=== PATIENT | male | born 1945 | race Caucasian/White ===

== ENCOUNTER 2017-09-20 19:25 | Emergency (ER) | payer OTHER ==
--- OUTSIDE RECORDS SUMMARY | 2017-09-20 19:27 | XMS REPORT ---
:1945 Author Organization [employer] Care Team Providers Name Role Phone Luis Mccormick Provider Role Unavailable Allergies, Adverse Reactions, Alerts Substance Reaction Event Type Cortisone Info Not Available Drug Allergy Naproxen Info Not Available Drug Allergy Problems Problem Type Condition Code Onset Dates Condition Status Problem Contusion of left knee, subsequent S80.02XD Active encounter Problem Prepatellar bursitis of left knee M70.42 Active Problem Pain, joint, knee, left M25.562 Active Assessment Contusion of left knee, subsequent S80.02XD Active encounter Assessment Prepatellar bursitis of left knee M70.42 Active Assessment Pain, joint, knee, left M25.562 Active Medications Medication Code System Code Instructions Start End Date Status Dosage Date Oxcarbazepine NDC 0 Active not defined atorvastatin NDC 13819608907 20mg September 04, Active 1 tablet by 2018 mouth at bedtime Results No Known Results Summary Purpose [employer] Submission
[2017-09-20 21:01] LABS: Absolute Lymphocytes (CBC) 0.8 K/uL (0.7-4.9); Absolute Monocytes 0.8 K/uL (0.1-1.3); Absolute Neutrophil 6.2 K/uL (1.8-8.0); Basophils % 0.5 % (0-1.3); Eosinophils % 3.3 % (0-4.4); Hematocrit 45.6 % (39.6-49.0); Lymphocytes % 9.7 % (15.3-44.8); MCH 30.9 pg (27.0-35.0); MCV 89.8 fL (80-100); MPV 10.4 fL (7.6-11.3); Monocytes % 9.8 % (3.3-12.3); RBC Red Blood Cell Count 5.08 M/uL (4.33-5.43)
[2017-09-20 21:09] LABS: Protime INR 1.06
[2017-09-20 21:17] LABS: Albumin 3.9 g/dL (3.4-5.0); Bilirubin Direct 0.1 mg/dL (0-0.2); Bilirubin Total 0.5 mg/dL (0.2-1.0); CKMB Creatine Kinase MB 1.8 ng/mL (0.3-3.6); Magnesium 2.1 mg/dL (1.8-2.4); Potassium 4.2 mmol/L (3.5-5.1); Protein, Total 7.4 g/dL (6.4-8.2)
[2017-09-20] MEDS ORDERED: ALBUTEROL 2.5 MG/3 ML NEB SOL ONE (21:20)
[2017-09-20] MEDS ORDERED: IPRATROPIUM BROM 0.5MG/2.5ML ONE (21:20)
[2017-09-20] MEDS ORDERED: HYDROCODONE/CHLORPHEN 5 ML/OSYR ONE (21:20)
[2017-09-20] MEDS ORDERED: LIDOCAINE VISCOUS 2% SOLN 15 ML UDC ONE (22:14)
[2017-09-20] MEDS ORDERED: MAGNE/ALUM HYDROXD 30 ML UCUP ONE (22:14)
--- NOTE | 2017-09-20 23:38 | EDPHYS ---
Physician Documentation [facility] Name: Jayro Mcelroy Age: 72 yrs Sex: Male : 1945 Arrival Date: 09/20/2017 Time: 19:28 Bed 23 Private MD: Evelio Murcia V ED Physician Dharmesh Daniel HPI: 09/20 21:00 This 72 yrs old Male presents to ER via Ambulatory with complaints of cp Difficulty breathing due to cough. 21:00 The patient has shortness of breath at rest. cp 21:00 Onset: The symptoms/episode began/occurred last week. Associated signs and symptoms: cp Pertinent positives: chest pain, productive cough, vomiting, Pertinent negatives: diaphoresis, fever, hemoptysis. Severity of symptoms: in the emergency department the symptoms are unchanged despite home interventions. Historical: - Allergies: 19:51 Naproxen; aj1 - Home Meds: 19:51 atorvastatin 40 mg Oral tab 1 tab once daily [Active]; Bupropion Oral [Active]; aj1 clopidogrel 75 mg Oral tab 1 tab once daily [Active]; oxcarbazepine 600 mg Oral tab 1 tab TID [Active]; - PMHx: 19:51 Diabetes - NIDDM; Hyperlipidemia; Hypertension; aj1 - Immunization history:: Flu vaccine is not up to date. - Social history:: Smoking status: Patient/guardian denies using tobacco. - Ebola Screening: : No symptoms or risks identified at this time. ROS: 21:05 Constitutional: Negative for body aches, chills, fever, poor PO intake. cp 21:05 Eyes: Negative for injury, pain, redness, and discharge. cp 21:05 ENT: Negative for drainage from ear(s), ear pain, sore throat, difficulty swallowing, difficulty handling secretions. 21:05 Cardiovascular: Positive for chest pain, with cough, Negative for edema. 21:05 Respiratory: Positive for cough, "sounds productive", shortness of breath, Negative for hemoptysis. 21:05 Abdomen/GI: Positive for abdominal pain, vomiting, Negative for diarrhea, constipation, black/tarry stool, rectal bleeding. 21:05 Back: Negative for radiated pain. 21:05 : Negative for urinary symptoms. 21:05 Skin: Negative for cellulitis, rash. 21:05 Neuro: Positive for headache, Negative for altered mental status, syncope, near syncope, weakness. 21:05 All other systems are negative. Exam: 21:10 Constitutional: The patient appears in no acute distress, alert, awake, cp non-diaphoretic, non-toxic, well developed, well nourished. 21:10 Head/Face: Normocephalic, atraumatic. cp 21:10 Eyes: Periorbital structures: appear normal, Conjunctiva: normal, no exudate, no injection, Sclera: no appreciated abnormality, Lids and lashes: appear normal, bilaterally. 21:10 ENT: External ear(s): are unremarkable, Ear canal(s): are normal, clear, TM's: bulging, is not appreciated, bilaterally, erythema, is not appreciated, bilaterally, Nose: is normal, Mouth: Lips: moist, Oral mucosa: pink and intact, moist, Posterior pharynx: is normal, airway is patent, no erythema, no exudate. 21:10 Neck: ROM/movement: is normal, is supple, without pain, no range of motions limitations, no meningismus, no nuchal rigidity. 21:10 Chest/axilla: Inspection: normal, Palpation: is normal, no crepitus, no tenderness. 21:10 Cardiovascular: Rate: normal, Rhythm: regular, Pulses: Pulses are 2+ in right radial artery and left radial artery. Edema: is not appreciated, JVD: is not appreciated. 21:10 Respiratory: the patient does not display signs of respiratory distress, Respirations: labored breathing, is not present, intercostal retractions, are absent, shallow respirations, are not present, Breath sounds: bronchial sounds, that are mild, are heard diffusely, stridor, is not appreciated, wheezing: is not appreciated. 21:10 Abdomen/GI: Inspection: abdomen appears normal, Bowel sounds: active, all quadrants, Palpation: abdomen is soft and non-tender, in all quadrants. 21:10 Skin: cellulitis, is not appreciated, no rash present. 21:10 Neuro: Orientation: to person, place \\T\\ time. Mentation: lucid, able to follow commands, Cerebellar function: is grossly normal, Motor: moves all fours, strength is normal, Sensation: no obvious gross deficits. Vital Signs: 19:51 BP 195 / 107; Pulse 92; Resp 26; Temp 99.4(O); Pulse Ox 96% on R/A; Weight 145.15 kg aj1 (R); Height 6 ft. 4 in. (193.04 cm) (R); Pain 6/10; 21:30 BP 166 / 91; Pulse 91; Resp 20; Pulse Ox 98% on R/A; kr2 22:16 BP 184 / 98; Pulse 96; Resp 19; Pulse Ox 95% on R/A; kr2 23:57 BP 176 / 80; Pulse 94; Resp 17; Pulse Ox 99% on R/A; kr2 19:51 Body Mass Index 38.95 (145.15 kg, 193.04 cm) aj1 MDM: 20:31 Patient medically screened. cp 21:00 Differential diagnosis: Bronchitis CHF exacerbation, Chronic Obstructive Pulmonary cp Disease Myocardial Infarction pneumonia, Pneumothorax pulmonary edema, Pulmonary Embolism reactive airway disease, Sepsis Unstable Angina. 23:35 Data reviewed: vital signs, nurses notes, lab test result(s), EKG, radiologic studies, cp plain films. 23:35 Test interpretation: by ED physician or midlevel provider: ECG, plain radiologic cp studies. Counseling: I had a detailed discussion with the patient and/or guardian regarding: the historical points, exam findings, and any diagnostic results supporting the discharge/admit diagnosis, the presence of at least one elevated blood pressure reading (>120/80) during this emergency department visit, lab results, radiology results, the need for outpatient follow up, a family practitioner, to return to the emergency department if symptoms worsen or persist or if there are any questions or concerns that arise at home. Response to treatment: the patient's symptoms have markedly improved after treatment, and as a result, I will discharge patient. 09/20 20:44 Order name: Basic Metabolic Panel; Complete Time: 21:43 cp 09/20 20:44 Order name: CBC with Diff; Complete Time: :43 cp 09/20 21:45 Interpretation: Normal except: PLT 132; PADILLA% 76.7; LYM% 9.7. cp 09/20 20:44 Order name: Ckmb; Complete Time: 21:43 cp 09/20 20:44 Order name: CPK; Complete Time: 21:43 cp 09/20 20:44 Order name: LFT's; Complete Time: 21:43 cp 09/20 20:44 Order name: Magnesium; Complete Time: 21:43 cp 08/12 20:44 Order name: NT PRO-BNP; Complete Time: 21:43 cp 08/12 20:44 Order name: PT-INR; Complete Time: 21:43 cp 08/12 20:44 Order name: Ptt, Activated; Complete Time: 21:43 cp 08/12 20:44 Order name: Troponin (emerg Dept Use Only); Complete Time: 21:43 cp 08/12 21:44 Interpretation: Within normal limits: TROPED < 0.02. cp 08/12 20:54 Order name: XRAY Chest Pa And Lat (2 Views) cp 08/12 20:44 Order name: EKG; Complete Time: 20:45 cp 08/12 20:44 Order name: Cardiac monitoring; Complete Time: 20:47 cp 08/12 20:44 Order name: EKG - Nurse/Tech; Complete Time: 20:47 cp 08/12 20:44 Order name: IV Saline Lock; Complete Time: 20:47 cp 08/12 20:44 Order name: Labs collected and sent; Complete Time: 20:47 cp 08/12 20:44 Order name: O2 Per Protocol; Complete Time: 20:47 cp 08/12 20:44 Order name: O2 Sat Monitoring; Complete Time: 20:47 cp 08/12 20:44 Order name: Urine Dipstick-Ancillary (obtain specimen); Complete Time: 21:37 cp Administered Medications: 21:17 Drug: Albuterol - atroVENT (3:1) (2.5 mg - 0.5 mg) 3 ml Route: Nebulizer; kr2 22:21 Follow up: Response: No adverse reaction kr2 21:17 Drug: Tussionex Pennkinetic ER 5 ml Route: PO; kr2 22:21 Follow up: Response: No adverse reaction kr2 22:14 Drug: GI Cocktail without - (Maalox Suspension 30 ml, Lidocaine Liquid 2 % 15 kr2 ml) Route: PO; 23:56 Follow up: Response: No adverse reaction; Pain is decreased kr2 Disposition: 09/20/17 23:37 Discharged to Home. Impression: Acute upper respiratory infection, unspecified. - Condition is Stable. - Discharge Instructions: Upper Respiratory Infection, Adult. - Prescriptions for prednisone 50 mg Oral tablet - take 1 tablet by ORAL route once daily for 5 days; 5 tablet. Zithromax Z- Flakito 250 mg Oral Tablet - take 1 tablet by ORAL route as directed for 5 days Day 1 - take two (2) tablets one time. Day 2, 3, 4 , 5 take one (1) tablet once daily.; 6 tablet. Albuterol Sulfate 90 mcg/actuation - inhale 1-2 puff by INHALATION route every 4-6 hours; 1 Inhaler. Guaifenesin AC 10- 100 mg/5 mL Oral Liquid - take 10 milliliter by ORAL route every 4 hours As needed; 240 milliliter. - Medication Reconciliation Form, Thank You Letter, Antibiotic Education, Prescription Opioid Use form. - Follow up: Private Physician; When: 2 - 3 days; Reason: Recheck today's complaints. - Problem is new. - Symptoms have improved. Signatures: Dispatcher [employer] EDTania De Leon RN RN aj1 Clovis Gomez PA PA cp Reaves, Karey, RN RN kr2 Corrections: (The following items were deleted from the chart) 23:59 23:37 09/20/2017 23:37 Discharged to Home. Impression: Acute upper respiratory kr2 infection, unspecified. Condition is Stable. Forms are Medication Reconciliation Form, Thank You Letter, Antibiotic Education, Prescription Opioid Use. Follow up: Private Physician; When: 2 - 3 days; Reason: Recheck today's complaints. Problem is new. Symptoms have improved. cp
--- NOTE | 2017-09-20 23:38 | ER ---
Nurse's Notes [facility] Name: Jayro Mcelroy Age: 72 yrs Sex: Male : 1945 Arrival Date: 09/20/2017 Time: 19:28 Bed 23 Private MD: Evelio Murcia V Diagnosis: Acute upper respiratory infection, unspecified Presentation: 09/20 19:46 Presenting complaint: Patient states: Cough and fever since last , states he is aj1 having coughing fits and that its making his chest and abdomen sore and giving him a headache. Reports shortness of breath during and after his coughing fits. Reports that he has vomited once today. Transition of care: patient was not received from another setting of care. Onset of symptoms was September 16, 2017. Risk Assessment: Do you want to hurt yourself or someone else? Patient reports no desire to harm self or others. Initial Sepsis Screen: Does the patient meet any 2 criteria? RR > 20 per min. HR > 90 bpm. Does the patient have a suspected source of infection? Yes: Productive cough/pneumonia. Care prior to arrival: None. 19:46 Method Of Arrival: Ambulatory [facility] 19:46 Acuity: NAUN 3 aj1 Triage Assessment: 19:51 General: Appears in no apparent distress. uncomfortable, Behavior is calm, cooperative, aj1 appropriate for age. Pain: Complains of pain in forehead, chest and abdomen Pain currently is 5 out of 10 on a pain scale. Quality of pain is described as aching, Pain began 4 days ago. Neuro: Level of Consciousness is awake, alert, obeys commands, Moves all extremities. Weakness Gait is steady, Speech is normal, Facial symmetry appears normal. Cardiovascular: Reports chest pain, nausea, shortness of breath, Denies palpitations, Heart tones S1 S2 present Patient's skin is warm and dry. Respiratory: Reports shortness of breath cough that is hacking, persistent Airway is patent Respiratory effort is even, unlabored, Respiratory pattern is regular, symmetrical, Breath sounds are diminished bilaterally. Historical: - Allergies: 19:51 Naproxen; aj1 - Home Meds: 19:51 atorvastatin 40 mg Oral tab 1 tab once daily [Active]; Bupropion Oral [Active]; aj1 clopidogrel 75 mg Oral tab 1 tab once daily [Active]; oxcarbazepine 600 mg Oral tab 1 tab TID [Active]; - PMHx: 19:51 Diabetes - NIDDM; Hyperlipidemia; Hypertension; aj1 - Immunization history:: Flu vaccine is not up to date. - Social history:: Smoking status: Patient/guardian denies using tobacco. - Ebola Screening: : No symptoms or risks identified at this time. Screenin:51 Abuse screen: Denies threats or abuse. Denies injuries from another. Nutritional kr2 screening: No deficits noted. Tuberculosis screening: No symptoms or risk factors identified. Fall Risk None identified. Assessment: 20:44 General: Appears in no apparent distress. uncomfortable, well groomed, well developed, kr2 well nourished, Behavior is calm, cooperative, appropriate for age. Pain: Complains of pain in abdomen Pain radiates to chest Pain currently is 5 out of 10 on a pain scale. at worst was 10 out of 10 on a pain scale. Quality of pain is described as burning, sharp, Pain began Is continuous, Alleviated by rest, Aggravated by Coughing Noted to be grimacing. Neuro: Level of Consciousness is awake, alert, obeys commands, Oriented to person, place, time, situation, Lead Engineer are equal bilaterally. Cardiovascular: Capillary refill < 3 seconds in bilateral fingers Patient's skin is warm and dry. Respiratory: Airway is patent Respiratory effort is even, unlabored, Respiratory pattern is regular, symmetrical, the patient has mild shortness of breath. Respiratory: Reports shortness of breath on exertion cough that is productive, persistent since pain with cough. GI: Abdomen is non-distended, obese. EENT: Oral mucosa is moist. Derm: Skin is intact, is healthy with good turgor, Skin is pink, warm \\T\\ dry. Musculoskeletal: Circulation, motion, and sensation intact. 21:30 Reassessment: Patient appears in no apparent distress at this time. Patient and/or kr2 family updated on plan of care and expected duration. Pain level reassessed. Patient is alert, oriented x 3, equal unlabored respirations, skin warm/dry/pink. 22:14 Reassessment: Patient appears in no apparent distress at this time. Patient and/or kr2 family updated on plan of care and expected duration. Pain level reassessed. Patient is alert, oriented x 3, equal unlabored respirations, skin warm/dry/pink. Medicated as ordered with GI cocktail for patient complaints of burning in stomach and chest. 23:38 Reassessment: Patient appears in no apparent distress at this time. Patient and/or kr2 family updated on plan of care and expected duration. Pain level reassessed. Patient is alert, oriented x 3, equal unlabored respirations, skin warm/dry/pink. 23:58 Reassessment: Patient appears in no apparent distress at this time. Patient and/or kr2 family updated on plan of care and expected duration. Pain level reassessed. Patient is alert, oriented x 3, equal unlabored respirations, skin warm/dry/pink. Patient states that burning "completely went away" after GI cocktail Patient denies pain at this time. Vital Signs: 19:51 BP 195 / 107; Pulse 92; Resp 26; Temp 99.4(O); Pulse Ox 96% on R/A; Weight 145.15 kg aj1 (R); Height 6 ft. 4 in. (193.04 cm) (R); Pain 6/10; 21:30 BP 166 / 91; Pulse 91; Resp 20; Pulse Ox 98% on R/A; kr2 22:16 BP 184 / 98; Pulse 96; Resp 19; Pulse Ox 95% on R/A; kr2 23:57 BP 176 / 80; Pulse 94; Resp 17; Pulse Ox 99% on R/A; kr2 19:51 Body Mass Index 38.95 (145.15 kg, 193.04 cm) aj1 ED Course: 19:28 Patient arrived in ED. es 19:28 Evelio Murcia MD is Private Physician. es 19:50 Triage completed. aj1 19:51 Arm band placed on Patient placed in waiting room, Patient notified of wait time. EKG aj1 completed in triage. Results shown to MD. 20:25 Lidia Cervantes, HELEN is Primary Nurse. kr2 20:28 Clovis Gomez PA is PHCP. cp 20:28 Dharmesh Daniel MD is Attending Physician. cp 20:45 Inserted saline lock: 20 gauge in right antecubital area, using aseptic technique. kr2 Blood collected. 20:51 Patient has correct armband on for positive identification. Bed in low position. Call kr2 light in reach. Side rails up X 1. Adult w/ patient. youth nutritional monitor on. Pulse ox on. NIBP on. Door closed. Verbal reassurance given. Head of bed elevated. 22:30 X-ray completed. Patient tolerated procedure well. kp1 22:30 XRAY Chest Pa And Lat (2 Views) In Process Unspecified. EDMS 23:56 No provider procedures requiring assistance completed. IV discontinued, intact, kr2 bleeding controlled, No redness/swelling at site. Pressure dressing applied. Administered Medications: 21:17 Drug: Albuterol - atroVENT (3:1) (2.5 mg - 0.5 mg) 3 ml Route: Nebulizer; kr2 22:21 Follow up: Response: No adverse reaction kr2 21:17 Drug: Tussionex Pennkinetic ER 5 ml Route: PO; kr2 22:21 Follow up: Response: No adverse reaction kr2 22:14 Drug: GI Cocktail without - (Maalox Suspension 30 ml, Lidocaine Liquid 2 % 15 kr2 ml) Route: PO; 23:56 Follow up: Response: No adverse reaction; Pain is decreased kr2 Outcome: 23:37 Discharge ordered by MD. pressley 23:56 Discharged to home ambulatory. kr2 23:56 Condition: good 23:56 Discharge instructions given to patient. 23:59 Patient left the ED. kr2 Signatures: Dispatcher [employer] Tania Ng, RN RN [email or web address] Cristal Garrison Corey, PA PA Erin Castillo kp1 Lidia Cervantes RN RN kr2
[2017-09-21 00:18] VITALS: TEMP 99.4
[2017-09-21 00:21] VITALS: BP 176/80; O2SAT 99
--- NOTE | 2017-09-21 05:41 | EKG ---
Test Date: 2017-09-20 Test Time: 19:57:05 Lead Carpenter: MEASUREMENT RESULTS: Intervals: Rate: 94 [place]: 160 QRSD: 74 QT: 338 QTc: 422 [place]: P: 30 NJ: 160 QRS: 9 T: 76 INTERPRETIVE STATEMENTS: Normal sinus rhythm Low voltage QRS Borderline ECG Compared to ECG 10/22/2016 16:16:46 Low QRS voltage now present Sinus arrhythmia no longer present ST (T wave) deviation no longer present Electronically Signed On 09-21-17 05:40:16 CDT by Jules Grossman
--- NOTE | 2017-09-21 07:58 | RAD REPORT ---
EXAM DESCRIPTION: [place] Pa And Lat (2 Views)09/20/2017 10:32 pm CLINICAL HISTORY: Cough COMPARISON: 2016 FINDINGS: Post surgical changes involve the left lung. Left pleural thickening is suspected. Mild ch ronic bibasilar lung opacities are without obvious change. Upper lobes appear clear. The heart is normal size IMPRESSION: No acute abnormalities displayed
== END 2017-09-20 23:59 | disposition home or self-care (01) ==
LOC: ER 19:25
DX: J06.9 Acute upper respiratory infection, unspecified (principal); I10 Essential (primary) hypertension; E78.5 Hyperlipidemia, unspecified; E11.9 Type 2 diabetes mellitus without complications; Z88.6 Allergy status to analgesic agent
CPT/HCPCS: 36415; 71046; 80048; 80076; 82550; 82553; 83735; 83880; 84484; 85025; 85610; 85730; 93005; 94640; 99285

== ENCOUNTER 2018-04-23 13:39 | Observation (INO) | payer OTHER ==
--- OUTSIDE RECORDS SUMMARY | 2018-04-23 13:51 | XMS REPORT ---
[...] NDC 0 Active not defined atorvastatin NDC [id number] 20mg September 04, Active 1 tablet by 2018 mouth at bedtime Results No Known Results Summary Purpose [email or web address] Submission
[2018-04-23] MEDS ORDERED: ASPIRIN EC 81 MG TAB PO ONE (14:30)
[2018-04-23] MEDS ORDERED: NITROGLYCERIN 0.4 MG/TAB SL ONE (14:30)
[2018-04-23] MEDS ORDERED: NA CHLORIDE 0.9% 500 ML ONE ×2 (14:30→15:31)
[2018-04-23 14:31] LABS: Absolute Lymphocytes (CBC) 1.6 K/uL (0.7-4.9); Absolute Monocytes 0.6 K/uL (0.1-1.3); Absolute Neutrophil 4.9 K/uL (1.8-8.0); Eosinophils % 5.2 % (0-4.4); Hematocrit 47.3 % (39.6-49.0); Lymphocytes % 20.8 % (15.3-44.8); MPV 10.8 fL (7.6-11.3); Monocytes % 7.9 % (3.3-12.3); RBC Red Blood Cell Count 5.32 M/uL (4.33-5.43)
[2018-04-23 14:35] LABS: Protime INR 1.04
[2018-04-23 14:58] LABS: ALT/SGPT 40 U/L (12-78); AST/SGOT 22 U/L (15-37); Albumin 3.8 g/dL (3.4-5.0); Alkaline Phosphatase 138 U/L (45-117); BUN Blood Urea Nitrogen 17 mg/dL (7-18); Bicarbonate 29 mmol/L (21-32); Bilirubin Direct 0.1 mg/dL (0-0.2); Bilirubin Total 0.5 mg/dL (0.2-1.0); Glucose Level 121 mg/dL (74-106); Magnesium 2.1 mg/dL (1.8-2.4); NT PRO-BNP 44 pg/mL (<125); Potassium 4.4 mmol/L (3.5-5.1); Protein, Total 7.5 g/dL (6.4-8.2); Sodium Level 139 mmol/L (136-145); Troponin (Emerg Dept Use Only) < 0.02 ng/mL (0.0-0.045)
--- NOTE | 2018-04-23 15:03 | RAD REPORT ---
EXAM DESCRIPTION: RAD - Chest Single View - 04/23/2018 2:38 pm CLINICAL HISTORY: Chest pain COMPARISON: None. TECHNIQUE: AP portable chest image was obtained . FINDINGS: No peripheral mass or consolidation. Lung markings are prominent but not clearly different . Exam is limited by portable technique and large body habitus. Heart and vasculature are normal. No pneumothorax. Costophrenic angle blunting is present and stable. No acute bony abnormality seen. No a cute aortic finding. Postsurgical changes are noted to the left mid rib cage. IMPRESSION: No acute cardiopulmonary process. Chronic interstitial lung disease is present and could potentially mask early edema or infiltrate.
[2018-04-23] MEDS ORDERED: MORPHINE 2 MG/ML SYR ONE (15:30)
--- NOTE | 2018-04-23 16:04 | ER ---
Nurse's Notes [facility] Name: Jayro Mcelroy Age: 72 yrs Sex: Male : 1945 Arrival Date: 04/23/2018 Time: 13:45 Bed 5 Private MD: Evelio Murcia V Diagnosis: Chest pain, unspecified Presentation: 04/23 13:57 Presenting complaint: Patient states: constant dull chest pain, SOB, jaw pain x 1 day. sv Transition of care: patient was not received from another setting of care. Onset of symptoms was April 22, 2018. Care prior to arrival: None. 13:57 Method Of Arrival: Ambulatory sv 13:57 Acuity: NAUN 2 sv 13:57 Risk Assessment: Do you want to hurt yourself or someone else? Patient reports no pc1 desire to harm self or others. 13:57 Initial Sepsis Screen: Does the patient meet any 2 criteria? No. Patient's initial pc1 sepsis screen is negative. Does the patient have a suspected source of infection? No. Patient's initial sepsis screen is negative. Triage Assessment: 14:12 General: Appears distressed, uncomfortable, Behavior is calm, cooperative. Pain: pc1 Complains of pain in chest Pain currently is 8 out of 10 on a pain scale. Cardiovascular: Reports chest pain, Capillary refill < 3 seconds Clubbing of nail beds is absent JVD is absent Patient's skin is warm and dry. Pulses are all present. are 2+ in right radial artery and left radial artery. Respiratory: No deficits noted. Historical: - Allergies: 13:59 Naproxen; sv - PMHx: 13:59 Diabetes - NIDDM; Hyperlipidemia; Hypertension; sv - Immunization history:: Adult Immunizations unknown. - Social history:: Smoking status: Patient/guardian denies using tobacco, never smoked, Patient/guardian denies using. - Ebola Screening: : Patient negative for fever greater than or equal to 101.5 degrees Fahrenheit, and additional compatible Ebola Virus Disease symptoms Patient denies exposure to infectious person Patient denies travel to an Ebola-affected area in the 21 days before illness onset No symptoms or risks identified at this time. Screenin:11 Abuse screen: Denies threats or abuse. Denies injuries from another. Nutritional pc1 screening: No deficits noted. Tuberculosis screening: No symptoms or risk factors identified. Fall Risk None identified. Assessment: 14:17 Pain: Complains of pain in chest Pain does not radiate. Pain currently is 8 out of 10 pc1 on a pain scale. Quality of pain is described as dull, Pain began 1 day ago. Cardiovascular: Heart tones S1 S2 present Capillary refill < 3 seconds Clubbing of nail beds is absent Patient's skin is warm and dry. Pulses are all present. are 2+ in right radial artery and left radial artery Chest pain is described as Pain is 8 out of 10 on a pain scale. quality is. Vital Signs: 13:59 BP 151 / 101; Pulse 71; Resp 20; Pulse Ox 97% ; Weight 149.69 kg; Height 6 ft. 4 in. sv (193.04 cm); Pain 8/10; 14:30 BP 133 / 94; Pulse 72; Resp 18; Pulse Ox 98% on R/A; hj 15:30 BP 133 / 73; Pulse 55; Resp 18; Pulse Ox 97% on R/A; hj 16:30 BP 131 / 73; Pulse 56; Resp 18; Pulse Ox 97% on R/A; hj 17:18 BP 131 / 73; Pulse 57; Resp 18; Pulse Ox 97% on R/A; hj 13:59 Body Mass Index 40.17 (149.69 kg, 193.04 cm) sv ED Course: 13:45 Patient arrived in ED. mr 13:45 Evelio Murcia MD is Private Physician. mr 13:57 Arm band placed on left wrist. pc1 13:58 Triage completed. sv 14:03 Ant Castanon, HELEN is Primary Nurse. hj 14:09 Clovis Gomez PA is PHCP. cp 14:09 Clovis Brambila MD is Attending Physician. cp 14:10 Inserted saline lock: 20 gauge in right antecubital area, using aseptic technique. pc1 Patient maintains SpO2 saturation greater than 95% on room air. 14:20 EKG done, by medicine technologist. reviewed by Clovis ROACH. at1 14:32 Patient has correct armband on for positive identification. Placed in gown. Bed in low pc1 position. Call light in reach. Side rails up X2. Adult w/ patient. school bus monitor on. Pulse ox on. NIBP on. Warm blanket given. 14:39 XRAY Chest (1 view) In Process Unspecified. EDMS 16:04 Evelio Murcia MD is Hospitalizing Provider. cp 17:43 No provider procedures requiring assistance completed. Patient admitted, IV remains in hj place. intact. Administered Medications: 14:26 Drug: NS 0.9% 500 ml Route: IV; Rate: bolus; Site: right antecubital; pc1 17:46 Follow up: IV Status: Completed infusion hj 14:26 Drug: Aspirin Chewable Tablet 324 mg Route: PO; pc1 15:13 Follow up: Response: No adverse reaction hj 14:27 Drug: Nitroglycerin 0.4 mg Route: Sublingual; pc1 15:13 Follow up: Response: No adverse reaction hj 15:07 Drug: morphine 2 mg Route: IVP; Site: right antecubital; hj 15:23 Follow up: Response: No adverse reaction hj 15:08 Drug: NS 0.9% 500 ml Route: IV; Rate: bolus; Site: right antecubital; hj 15:24 Follow up: Response: No adverse reaction hj 16:06 Follow up: IV Status: Completed infusion hj 16:03 Drug: Lovenox 40 mg Route: Sub-Q; Site: abdomen; hj 16:10 Follow up: Response: No adverse reaction Outcome: 16:04 Decision to Hospitalize by Provider. cp 17:44 Attestation : i agree with the assessment and notes of Marcell Murguia RN. 17:44 Admitted to Tele accompanied by manohar, family with patient, via stretcher, room 423, with chart, Report called to HELEN Geiger 17:44 Condition: stable 17:44 Instructed on the need for admit, Demonstrated understanding of instructions. 17:49 Patient left the ED. Signatures: Dispatcher [employer] Oksana Talbot RN RN Loni Mccabe mr MohsenLuisa, nurse sane EKG Tat1 Ant Castanon RN RN hj Page, Corey, PA PA cp Cantu, Patrick pc1 Corrections: (The following items were deleted from the chart) 14:00 13:57 Acuity: NAUN 3 sv sv 14:00 13:59 Pulse 71bpm; Resp 20bpm; Pulse Ox 97%; 149.69 kg; Height 6 ft. 4 in.; BMI: 40.1; sv Pain 8/10; sv
--- NOTE | 2018-04-23 16:04 | EDPHYS ---
Physician Documentation [facility] Name: Jayro Mcelroy Age: 72 yrs Sex: Male : 1945 Arrival Date: 04/23/2018 Time: 13:45 Bed 5 Private MD: Evelio Murcia V ED Physician Clovis Brambila HPI: 04/23 14:20 This 72 yrs old Male presents to ER via Ambulatory with complaints of Chest cp Pain. 14:20 The patient or guardian reports chest pain that is located primarily in the substernal cp area. Onset: yesterday. The pain radiates to jaw. Associated signs and symptoms: Pertinent positives: shortness of breath, Pertinent negatives: abdominal pain, cough, diaphoresis, headache, lower extremity pain, lower extremity swelling, palpitations, syncope. 14:20 Duration: The patient or guardian reports a single episode, that is still ongoing. cp 14:20 The chest pain is described as dull. cp 14:20 Severity of pain: in the emergency department the pain is a 8 / 10. cp Historical: - Allergies: 13:59 Naproxen; sv - PMHx: 13:59 Diabetes - NIDDM; Hyperlipidemia; Hypertension; sv - Immunization history:: Adult Immunizations unknown. - Social history:: Smoking status: Patient/guardian denies using tobacco, never smoked, Patient/guardian denies using. - Ebola Screening: : Patient negative for fever greater than or equal to 101.5 degrees Fahrenheit, and additional compatible Ebola Virus Disease symptoms Patient denies exposure to infectious person Patient denies travel to an Ebola-affected area in the 21 days before illness onset No symptoms or risks identified at this time. ROS: 14:20 Constitutional: Negative for body aches, chills, fever, poor PO intake. cp 14:20 Eyes: Negative for injury, pain, redness, and discharge. cp 14:20 ENT: Positive for jaw pain, Negative for drainage from ear(s), ear pain, sore throat, difficulty swallowing, difficulty handling secretions, hoarseness. 14:20 Cardiovascular: Positive for chest pain, Negative for edema, palpitations. 14:20 Respiratory: Positive for shortness of breath, Negative for cough, wheezing. 14:20 Abdomen/GI: Negative for abdominal pain, vomiting, diarrhea, constipation, black/tarry stool, rectal bleeding. 14:20 Back: Negative for pain at rest, pain with movement, radiated pain. 14:20 MS/extremity: Negative for injury or acute deformity, decreased range of motion, pain, swelling, tenderness. 14:20 Skin: Negative for cellulitis, rash. 14:20 Neuro: Negative for altered mental status, headache, syncope, weakness. 14:20 All other systems are negative. Exam: 14:20 ECG was reviewed by the Attending Physician. cp 14:23 Constitutional: The patient appears in no acute distress, alert, awake, cp non-diaphoretic, non-toxic, well developed, well nourished, uncomfortable. 14:23 Head/Face: Normocephalic, atraumatic. cp 14:23 Eyes: Periorbital structures: appear normal, Pupils: equal, round, and reactive to light and accomodation, Extraocular movements: intact throughout, Conjunctiva: normal, no exudate, no injection, Sclera: no appreciated abnormality, Lids and lashes: appear normal, bilaterally. 14:23 ENT: External ear(s): are unremarkable, Ear canal(s): are normal, clear, TM's: bulging, is not appreciated, bilaterally, dullness, bilaterally, erythema, is not appreciated, bilaterally, Nose: is normal, Mouth: Lips: moist, Oral mucosa: pink and intact, moist, Posterior pharynx: is normal, airway is patent, no erythema, no exudate, Voice: is normal. 14:23 Neck: ROM/movement: limited range of motion, is not appreciated, Meningeal signs: are not present, nuchal rigidity, is not appreciated. 14:23 Chest/axilla: Inspection: normal, Palpation: is normal, no crepitus, no tenderness. 14:23 Cardiovascular: Rate: normal, Rhythm: regular, Pulses: Pulses are 2+ in right radial artery and left radial artery. Edema: is not appreciated, JVD: is not appreciated. 14:23 Respiratory: the patient does not display signs of respiratory distress, Respirations: normal, no use of accessory muscles, no retractions, no splinting, no tachypnea, labored breathing, is not present, Breath sounds: are clear throughout, no decreased breath sounds, no stridor, no wheezing. 14:23 Abdomen/GI: Inspection: abdomen appears normal, Bowel sounds: active, all quadrants, Palpation: abdomen is soft and non-tender, in all quadrants, voluntary guarding, is not appreciated, involuntary guarding, is not appreciated. 14:23 Back: pain, is absent, ROM is normal. 14:23 Musculoskeletal/extremity: Exam is negative for calf tenderness, decreased range of motion, deformity, edema, injury. 14:23 Skin: no rash present. 14:23 Neuro: Orientation: to person, place \T\ time. Mentation: is normal, Cerebellar function: is grossly normal, Motor: moves all fours, strength is normal, Sensation: is normal. Vital Signs: 13:59 BP 151 / 101; Pulse 71; Resp 20; Pulse Ox 97% ; Weight 149.69 kg; Height 6 ft. 4 in. sv (193.04 cm); Pain 8/10; 14:30 BP 133 / 94; Pulse 72; Resp 18; Pulse Ox 98% on R/A; hj 15:30 BP 133 / 73; Pulse 55; Resp 18; Pulse Ox 97% on R/A; hj 16:30 BP 131 / 73; Pulse 56; Resp 18; Pulse Ox 97% on R/A; hj 17:18 BP 131 / 73; Pulse 57; Resp 18; Pulse Ox 97% on R/A; hj 13:59 Body Mass Index 40.17 (149.69 kg, 193.04 cm) sv MDM: 14:09 Patient medically screened. cp 15:30 Differential diagnosis: abnormal EKG, acute myocardial infarction, acute pericarditis, cp chest wall pain, cholecystitis, Cholelithiasis costochondritis, gastroesophageal reflux disease (GERD), pancreatitis, pericarditis, pleurisy, pneumonia, pulmonary embolus, stable angina, thoracic aortic disection, unstable angina. 15:59 Physician consultation: Evelio Murcia MD was called at 15:59, was contacted at 15:59, regarding admission, to the telemetry unit. patient's condition, would like consultation with Dr. DR Grossman. 16:02 Physician consultation: Matthieu Florez MD was called at 16:02, left message with office secretary for consult on patient as requested by DR Florez. 16:10 The patient was given aspirin in the Emergency Department. cp 16:10 Data reviewed: vital signs, nurses notes, lab test result(s), EKG, radiologic studies, cp plain films. Test interpretation: by ED physician or midlevel provider: ECG, plain radiologic studies. Response to treatment: the patient's symptoms have markedly improved after treatment, and as a result, I will admit patient. 04/23 14:12 Order name: Basic Metabolic Panel; Complete Time: 15:03 cp 04/23 15:03 Interpretation: Normal except: GLUC 121; GFR 60. cp 04/23 14:12 Order name: CBC with Diff; Complete Time: 15:03 cp 04/23 14:12 Order name: LFT's; Complete Time: 15:03 cp 04/23 14:12 Order name: Magnesium; Complete Time: 15:03 cp 04/23 14:12 Order name: NT PRO-BNP; Complete Time: 15:03 cp 04/23 14:12 Order name: PT-INR; Complete Time: 15:03 cp 04/23 14:12 Order name: Troponin (emerg Dept Use Only); Complete Time: 15:03 cp 04/23 16:30 Order name: Basic Metabolic Panel EDNY 04/23 16:30 Order name: Basic Metabolic Panel EDNY 04/23 16:30 Order name: Troponin I EDNY 04/23 16:30 Order name: Troponin I EDNY 04/23 16:30 Order name: Troponin I EDNY 04/23 16:31 Order name: CBC with Automated Diff EDNY 04/23 16:31 Order name: CBC with Automated Diff EDNY 04/23 14:12 Order name: XRAY Chest (1 view); Complete Time: 15:08 cp 04/23 14:12 Order name: EKG; Complete Time: 14:13 cp 04/23 14:12 Order name: Cardiac monitoring; Complete Time: 14:19 cp 04/23 14:12 Order name: EKG - Nurse/Tech; Complete Time: 14:19 cp 04/23 16:30 Order name: CONS Physician Consult EDNY 04/23 16:30 Order name: Regular EDNY 04/23 16:30 Order name: EKG Electrocardiogram EDNY 04/23 16:30 Order name: EKG Electrocardiogram EDNY 04/23 16:31 Order name: EKG Electrocardiogram EDNY 04/23 16:31 Order name: EKG Electrocardiogram EDNY 04/23 14:12 Order name: IV Saline Lock; Complete Time: 14:20 cp 04/23 14:12 Order name: Labs collected and sent; Complete Time: 14:20 cp 04/23 14:12 Order name: O2 Per Protocol; Complete Time: 14:20 cp 04/23 14:12 Order name: O2 Sat Monitoring; Complete Time: 14:20 cp 04/23 15:06 Order name: Blood Pressure Recheck: bilateral upper extremity; Complete Time: 15:13 cp EC:20 Rate is 72 beats/min. Rhythm is regular. VA interval is normal. QRS interval is normal. cp QT interval is normal. T waves are Inverted in lead aVL. Interpreted by me. Reviewed by me. Administered Medications: 14:26 Drug: NS 0.9% 500 ml Route: IV; Rate: bolus; Site: right antecubital; pc1 17:46 Follow up: IV Status: Completed infusion hj 14:26 Drug: Aspirin Chewable Tablet 324 mg Route: PO; pc1 15:13 Follow up: Response: No adverse reaction hj 14:27 Drug: Nitroglycerin 0.4 mg Route: Sublingual; pc1 15:13 Follow up: Response: No adverse reaction hj 15:07 Drug: morphine 2 mg Route: IVP; Site: right antecubital; hj 15:23 Follow up: Response: No adverse reaction hj 15:08 Drug: NS 0.9% 500 ml Route: IV; Rate: bolus; Site: right antecubital; hj 15:24 Follow up: Response: No adverse reaction hj 16:06 Follow up: IV Status: Completed infusion hj 16:03 Drug: Lovenox 40 mg Route: Sub-Q; Site: abdomen; hj 16:10 Follow up: Response: No adverse reaction hj Disposition: 04/23/18 16:04 Hospitalization ordered by Evelio Murcia for Observation. Preliminary diagnosis is Chest pain, unspecified. - Bed requested for Telemetry/MedSurg (observation). - Status is Observation. hj - Condition is Stable. - Problem is new. - Symptoms have improved. UTI on Admission? No Addendum: 04/26/2018 07:11 Co-signature as Attending Physician, Clovis Brambila MD I agree with the assessment and c langford plan of care. Signatures: Dispatcher [employer] Oksana Talbot RN RN sv Woody, Diana, RN RN dw Anderson, Corey, MD MD cha Joaquin, Henry, RN RN hj Page, Corey PA PA cp Aguirre, Marcell pc1 Corrections: (The following items were deleted from the chart) 04/23 17:19 16:04 Hospitalization Ordered by Evelio Murcia MD for Observation. Preliminary diagnosis dw is Chest pain, unspecified. Bed requested for Telemetry/MedSurg (observation). Status is Observation. Condition is Stable. Problem is new. Symptoms have improved. UTI on Admission? No. cp 17:49 17:19 04/23/2018 16:04 Hospitalization Ordered by Evelio Murcia MD for Observation. hj Preliminary diagnosis is Chest pain, unspecified. Bed requested for Telemetry/MedSurg (observation). Status is Observation. Condition is Stable. Problem is new. Symptoms have improved. UTI on Admission? No. dw
[2018-04-23] MEDS ORDERED: ENOXAPARIN 40 MG/0.4 ML SQ ONE (16:19)
[2018-04-23] MEDS ORDERED: ONDANSETRON 4 MG/2 ML VIAL IV PRN (16:27)
[2018-04-23] MEDS ORDERED: MORPHINE 2 MG/ML SYR IV PRN (16:27)
[2018-04-23] MEDS ORDERED: ACETAMINOPHEN 500 MG TAB PO PRN (16:27)
[2018-04-23 18:04] VITALS: BMI 40.1
--- NOTE | 2018-04-23 19:35 | P.HP ---
Certification for Inpatient Patient admitted to: Inpatient With expected LOS: >2 Midnights Practitioner: I am a practitioner with admitting privileges, knowledge of patient current condition, hospital course, and medical plan of care. Services: Services provided to patient in accordance with Admission requirements found in Title 42 Section 412.3 of the Code of Federal Regulations Patient History Date of Service: 04/23/18 Reason for admission: CHEST PAIN History of Present Illness: MR. KNOTT IS AN OBESE, DIABETIC PATIENT WITH CAD IN PAST, HAVING HAD CORONARY STENTS LAST ONE A YEAR AGO. HE COMES WITH CHEST PAIN, THAT WAS HEAVINESS, WITH RADIATION TO NECK FOR A DAY. HE IS PAINFREE NOW AFTER IV MEDICINE IN ER. Allergies naproxen Allergy (Severe, Verified 11/09/15 13:33) Anaphylaxis cortisone Allergy (Unverified 07/28/16 21:17) Unknown Home Medications: Atorvastatin Calcium 40 mg PO DAILY 04/23/18 Bupropion HCl [Bupropion Xl] 300 mg PO DAILY 04/23/18 Clopidogrel Bisulfate [Plavix] 75 mg PO DAILY 04/23/18 OXcarbazepine [Oxcarbazepine] 600 mg PO BID 04/23/18 - Past Medical/Surgical History Has patient received pneumonia vaccine in the past: Yes Diabetic: No -: HTN -: Hyperlipidemia -: NIDDM -: hernia repair -: cardiac stent -: left lobectomy -: Left wrist sx - Social History Smoking Status: Former smoker Alcohol use: No CD- Drugs: No Caffeine use: Yes Place of Residence: Home Review of Systems 10-point ROS is otherwise unremarkable Physical Examination - Vital Signs Temperature: 97.9 F Blood Pressure: 182/93 Pulse: 74 Respirations: 16 Pulse Ox (%): 98 - Physical Exam General: Alert, In no apparent distress, Obese HEENT: Atraumatic, PERRLA, Mucous membr. moist/pink, EOMI, Sclerae nonicteric Neck: Supple, 2+ carotid pulse no bruit, No LAD, Without JVD or thyroid abnormality Respiratory: Clear to auscultation bilaterally, Normal air movement Cardiovascular: Regular rate/rhythm, Normal S1 S2 Gastrointestinal: Normal bowel sounds, No tenderness Musculoskeletal: No tenderness Integumentary: No rashes Neurological: Normal gait, Normal speech, Normal strength at 5/5 x4 extr, Normal tone, Normal affect Lymphatics: No axilla or inguinal lymphadenopathy - Studies Laboratory Data (last 24 hrs) 04/23/18 14:20: PT 12.3, INR 1.04 04/23/18 14:20: WBC 7.5, Hgb 15.8, Hct 47.3, Plt Count 152 04/23/18 14:20: Sodium 139, Potassium 4.4, BUN 17, Creatinine 1.19, Glucose 121 H, Magnesium 2.1, Total Bilirubin 0.5, AST 22, ALT 40, Alkaline Phosphatase 138 H Assessment and Plan - Problems (Diagnosis) (1) Chest pain Onset Date: 07/17/14 Current Visit: No Status: Acute Plan: ANGINA. POSSIBLE CAD RELATED. DR. ROGER CONSULTED FROM ER BY THE PA. ASPIRIN STATIN LOVENOX OXYGEN PRN. POSSIBLE ST TEST THURSDAY. CURRENTLY VERY STABLE. Qualifiers: Chest pain type: precordial pain Qualified Code(s): R07.2 - Precordial pain - Advance Directives Does patient have a Living Will: Yes Does patient have a Durable POA for Healthcare: Yes
[2018-04-23] MEDS ORDERED: HOME MED 1 EA UNK (Oxcarbazepine [Oxcarbazepine] 600 MG) PO SCH (21:00)
[2018-04-23] MEDS ORDERED: ENOXAPARIN 100 MG/ML SYR SQ SCH (21:00)
[2018-04-23] MEDS ORDERED: ATORVASTATIN 40 MG TAB PO SCH (21:00)
[2018-04-23] MEDS: OXcarbazepine 150 MG TAB PO SCH (22:30)
[2018-04-24] MEDS ORDERED: ENOXAPARIN 100 MG/ML SYR SQ SCH (04:30)
[2018-04-24 06:10] LABS: Absolute Lymphocytes (CBC) 1.6 K/uL (0.7-4.9); Absolute Monocytes 0.7 K/uL (0.1-1.3); Absolute Neutrophil 4.4 K/uL (1.8-8.0); Eosinophils % 6.3 % (0-4.4); Hematocrit 42.5 % (39.6-49.0); Lymphocytes % 21.8 % (15.3-44.8); Monocytes % 9.3 % (3.3-12.3); RBC Red Blood Cell Count 4.74 M/uL (4.33-5.43)
[2018-04-24 06:22] LABS: Potassium 4.3 mmol/L (3.5-5.1)
[2018-04-24] MEDS ORDERED: BUPROPION HCL XL 150 MG TAB PO SCH (09:00)
[2018-04-24] MEDS ORDERED: CLOPIDOGREL 75 MG TABLET PO SCH (09:00)
[2018-04-24] MEDS ORDERED: ASPIRIN EC 81 MG TAB PO SCH (09:00)
[2018-04-24] MEDS ORDERED: BUPROPION HCL 300 MG PO SCH (09:00)
--- NOTE | 2018-04-24 09:24 | EKG ---
Test Date: 2018-04-23 Test Time: 14:11:18 Assistant Editor: SANTINO MEASUREMENT RESULTS: Intervals: Rate: 72 SD: 190 QRSD: 80 QT: 396 QTc: 433 [place]: P: -2 SD: 190 QRS: 6 T: 76 INTERPRETIVE STATEMENTS: Sinus rhythm with premature atrial complexes Otherwise normal ECG Compared to ECG 09/20/2017 19:57:05 Atrial premature complex(es) now present Electronically Signed On 04-24-18 09:21:48 CDT by Matthieu Florez
[2018-04-24] MEDS: OXcarbazepine 150 MG TAB PO SCH (09:29)
[2018-04-24 10:18] VITALS: O2SAT 94
[2018-04-24 12:48] VITALS: BP 123/62; TEMP 97.9
--- NOTE | 2018-04-24 17:26 | P.DS ---
Admission Date: 04/23/18 Discharge Date: 04/24/18 Disposition: ROUTINE DISCHARGE Discharge Condition: FAIR Reason for Admission: CHEST PAIN - Problems (1) Chest pain Onset Date: 07/17/14 Status: Acute Qualifiers: Chest pain type: precordial pain Qualified Code(s): R07.2 - Precordial pain Brief History of Present Illness: MR. KNOTT IS AN OBESE, DIABETIC PATIENT WITH CAD IN PAST, HAVING HAD CORONARY STENTS LAST ONE A YEAR AGO. HE COMES WITH CHEST PAIN, THAT WAS HEAVINESS, WITH RADIATION TO NECK FOR A DAY. HE IS PAINFREE NOW AFTER IV MEDICINE IN ER. MR. KNOTT IS STABLE FOR DC. DR. FLOREZ CALLED AND SAID HE HAS ARRANGED FOR ST TEST OP AND HE IS OKAY TO GO HOME. Vital Signs/Physical Exam: Temp Pulse Resp BP Pulse Ox 97.9 F 63 18 123/62 96 04/24/18 12:00 04/24/18 12:00 04/24/18 12:00 04/24/18 12:00 04/24/18 12:00 Laboratory Data at Discharge: WBC 7.2 K/uL (4.3-10.9) 04/24/18 05:21 Hgb 14.3 g/dL (13.6-17.9) 04/24/18 05:21 Hct 42.5 % (39.6-49.0) 04/24/18 05:21 Plt Count 131 K/uL (152-406) L 04/24/18 05:21 PT 12.3 SECONDS (9.5-12.5) 04/23/18 14:20 INR 1.04 04/23/18 14:20 Sodium 142 mmol/L (136-145) 04/24/18 05:21 Potassium 4.3 mmol/L (3.5-5.1) 04/24/18 05:21 BUN 18 mg/dL (7-18) 04/24/18 05:21 Creatinine 1.29 mg/dL (0.55-1.3) 04/24/18 05:21 Glucose 128 mg/dL (74-106) H 04/24/18 05:21 Magnesium 2.1 mg/dL (1.8-2.4) 04/23/18 14:20 Total Bilirubin 0.5 mg/dL (0.2-1.0) 04/23/18 14:20 AST 22 U/L (15-37) 04/23/18 14:20 ALT 40 U/L (12-78) 04/23/18 14:20 Alkaline Phosphatase 138 U/L (45-117) H 04/23/18 14:20 Troponin I < 0.02 ng/mL (0.0-0.045) 04/23/18 22:38 Home Medications: Atorvastatin Calcium 40 mg PO DAILY 04/23/18 Bupropion HCl [Bupropion Xl] 300 mg PO DAILY 04/23/18 Clopidogrel Bisulfate [Plavix] 75 mg PO DAILY 04/23/18 OXcarbazepine [Oxcarbazepine] 600 mg PO BID 04/23/18 Patient Discharge Instructions: take metoprolol you have at home. Call Dr. Florez on Thursday to get cath done. Followup: Matthieu Florez MD [ACTIVE - CAN ADMIT] -
--- NOTE | 2018-04-24 20:24 | CON ---
Date of Consultation: 04/24/[address] Murcia on 04/23/2018, I saw the patient on 04/24/2018. Reason For Consultation: Acute coronary syndrome. History Of Present Illness: Mr. Mcelroy is a 72-year-old white male. He is very well known to me from p rior office visits and hospital admissions. He also goes to the [facility] for some of his medical care. He has a history of hypertension, diabetes, dyslipidemia, coronary artery disease. He is stat us post LAD stent in the past. Last catheterization in August of 2014 showed a patent LAD stent with a bout a 70% first diagonal lesion being treated medically. He came in with substernal chest pressure radiating to the jaw that lasted for few hours with some nausea, diaphoresis, shortness of breath. D enied PND, orthopnea, pedal edema, palpitations, or syncope. EKG was normal. CPK-MBs, troponin, and BNP were all within normal limits. His chest x-ray was negative. He is symptoms free now. He did receive some beta-blockers in the emergency room. Allergies: TO CORTISONE AND NAPROSYN. Review of Systems: Negative. Social History: Negative. Family History: Negative. Medications: At home include Lipitor, Plavix, bupropion, and metoprolol. Physical Examination: General: He was in no acute distress. Sinus rhythm. No chest pain. Blood pressure was 182/93. HEENT: Negative. Neck: Supple with no bruit. Chest: Clear to auscultation and percussion. Cardiac: Revealed a regular rhythm and rate with S4 gallops. No murmurs or rubs. Abdomen: Obese, but benign. Extremities: Revealed no clubbing, cyanosis, or edema. Skin: Dry and intact. Neurologic: He was nonfocal. Vascular: Pulses were present distally bilaterally. Diagnostic Data: Within normal limits. Impression And Plan: 1.Unstable angina. 2.Hypertension, poorly controlled. 3.Diabetes. 4.Dyslipidemia. 5.Coronary artery disease, status post left anterior descending stent, patent in 2014, 70% diagonal at that time. I plan to continue his medical regimen, make sure he is definitely on a beta-evelio. Continue his L ipitor, Plavix, bupropion. Given nitroglycerin 0.4 mg sublingual as needed. Set him up as an outpat ient for a heart catheterization to redefine his coronary anatomy. He understands the risk and the b enefit of the procedure and agrees to proceed. Dr. Murcia is aware of the plan. TICO/TANISHA Voice ID: [id number] Report ID: [id number]
== END 2018-04-24 15:35 | disposition home or self-care (01) ==
LOC: ER 13:39 → ERHOLD 16:30 → 4TH 17:40
PROVIDERS: ADMIT Internal Medicine; ATTEND Internal Medicine
DX: R07.2 Precordial pain (principal); E66.9 Obesity, unspecified; Z68.41 Body mass index [BMI] 40.0-44.9, adult; E11.9 Type 2 diabetes mellitus without complications; I25.10 Atherosclerotic heart disease of native coronary artery without angina pectoris; Z95.5 Presence of coronary angioplasty implant and graft; I10 Essential (primary) hypertension; E78.5 Hyperlipidemia, unspecified; Z87.891 Personal history of nicotine dependence
CPT/HCPCS: 96361; 93005; 85025 ×2; 80048 ×2; 36415; 83735; 85610; 80076; 84484 ×3; 83880; 71045; 96372; 96374; 99285; J1650 ×2; J2270; G0378 ×2

== ENCOUNTER 2018-04-29 08:33 | Day surgery (SDC) | payer OTHER ==
--- OUTSIDE RECORDS SUMMARY | 2018-04-29 08:36 | XMS REPORT ---
[...] NDC 0 Active not defined atorvastatin NDC [id number] 20mg September 04, Active 1 tablet by 2018 mouth at bedtime Results No Known Results Summary Purpose Solaire GenerationinicalMzinga Submission
[2018-04-29] MEDS ORDERED: NA CHLORIDE 0.9% 500 ML ONE (09:22)
[2018-04-29] MEDS ORDERED: HEPA 1000U/500MLS 1,000 UNIT/500 ML BAG IV ONE (10:34)
[2018-04-29] MEDS ORDERED: NA CHLORIDE 0.9% 0 ML ONE (10:35)
[2018-04-29] MEDS ORDERED: FENTANYL CITR 100 MCG/2 ML ONE ×2 (10:35→11:07)
[2018-04-29] MEDS ORDERED: MIDAZOLAM HCL 2 MG/2 ML INJ ONE ×2 (10:35→10:59)
[2018-04-29] MEDS ORDERED: ATROPINE SULF 1 MG/10 ML SYR IV ONE (10:35)
[2018-04-29 12:44] VITALS: TEMP 97.6
[2018-04-29 12:45] VITALS: O2SAT 95
[2018-04-29 13:32] VITALS: BP 122/64
--- NOTE | 2018-04-29 16:54 | OP ---
Surgeon: Matthieu Florez MD Data Migration Consultant: Joaquin Luna. The patient will be lying in bed for 2 hours bedrest after Angio-Seal of his right common femoral art t[place]on. We will see him in the office in about 2 weeks to a month. Procedures Performed: Admitted today 04/29/2018 to my service as an outpatient for left heart cathet erization, selective coronary arteriogram. Indications For Procedure: Mr. Mcelroy is 72, has had a history of CAD in the past. Came into the emerg ency room and was admitted last weekend for unstable angina. CT was ruled out. EKG was nonspecific. Description Of Procedure: He was brought to the [facility] today, prepped and draped in the routine st erile fashion, given 4 mg of Versed and 100 mg of fentanyl for sedation. Right common femoral artery accessed with a 6-Qatari sheath. Angiography was done using Ranjith catheter in the left and right system. He was found to have diffuse plaquing throughout, about a 70% distal circumflex lesion. His circ was not dominant. He had about a 40-50% diffuse mid LAD stenosis. RCA was dominant with diffu se plaquing and no focal stenosis. I elected to treat Mr. Mcelroy medically. I am going to put him on Toprol-XL 100 mg daily. Continue his aspirin, Plavix, statin, losartan. He has not had any more chest pain since the last time I saw him . Complications: None. Blood Loss: 5 cc. Final Diagnosis: Moderate to severe coronary artery disease. Plan: Plan is for medical therapy as stated earlier. Total conscious sedation was 30 minutes. TICO/TANISHA Voice ID: [id number] Report ID: [id number]
== END 2018-04-29 13:34 | disposition home or self-care (01) ==
LOC: CCL 08:33
DX: I25.110 Atherosclerotic heart disease of native coronary artery with unstable angina pectoris (principal); I10 Essential (primary) hypertension; E11.9 Type 2 diabetes mellitus without complications; E78.5 Hyperlipidemia, unspecified; Z79.82 Long term (current) use of aspirin; Z79.02 Long term (current) use of antithrombotics/antiplatelets; Z79.899 Other long term (current) drug therapy; Z95.5 Presence of coronary angioplasty implant and graft
CPT/HCPCS: 82962; 93454; C1893; C1760; J2250 ×2; J3010 ×2; J0583

== ENCOUNTER 2021-01-26 04:18 | Emergency (ER) | payer OTHER ==
--- OUTSIDE RECORDS SUMMARY | 2021-01-26 04:25 | XMS REPORT | Continuity of Care Document ---
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 [place] 41 times Medical daily. Branch OXcarbazepi 2020-0 Yes Take by Un marivel ne 600 mg 9-19 mouth. ity of Tb24 21:01: [place] [address] Medical Branch atorvastati 2020-0 Yes 40mg Take 40 mg Univers n 40 mg 9-19 by mouth ity of tablet 21:01: at [place] [address] bedtime. Medical Branch clopidogrel 2020-0 Yes 75mg Take 75 mg Univers 75 mg 9-19 by mouth ity of tablet 21:01: daily. [place] [address] Medical Branch buPROPion 2020-0 Yes 300mg Take 300 Uni vers XL 150 mg 9-19 mg by ity of 24 hr 21:01: mouth [place] tablet 41 daily. Medical Branch losartan 50 2020-0 Yes 50mg Take 50 mg Univers mg tablet 9-19 by mouth ity of 21:01: daily. [place] [address] Medical Branch metoprolol 2020-0 Yes 100mg Take 100 Un marivel succinate 9-19 mg by ity of 100 mg CSpX 21:01: mouth [place] 41 daily. Medical Branch dutasteride 2020-0 Yes .5mg Take 0.5 Un marivel 0.5 mg 9-19 mg by ity of capsule 21:01: mouth [place] 41 daily. Medical Branch tamsulosin 2020-0 Yes Take by Uni vers 0.4 mg 24 9-19 mouth 2 ity of hr capsule 21:01: (two) [place] 41 times Medical daily. Branch OXcarbazepi 2020-0 Yes Take by Un marivel ne 600 mg 9-19 mouth. ity of Tb24 21:01: [place] [address] Medical Branch atorvastati 2020-0 Yes 40mg Take 40 mg Univers n 40 mg 9-19 by mouth ity of tablet 21:01: at [place] [address] bedtime. Medical Branch clopidogrel 2020-0 Yes 75mg Take 75 mg Univers 75 mg -19 by mouth ity of tablet 21:01: daily. [place] [address] Medical Branch buPROPion 2020-0 Yes 300mg Take 300 Uni vers XL 150 mg 9-19 mg by ity of 24 hr 21:01: mouth [place] tablet 41 daily. Medical Branch losartan 50 2020-0 Yes 50mg Take 50 mg Univers mg tablet 10-28 by mouth ity of 21:01: daily. [place] [address] Medical Branch metoprolol 2020-0 Yes 100mg Take 100 Un marivel succinate 9- mg by ity of 100 mg CSpX 21:01: mouth [place] 41 daily. Medical Branch dutasteride 2020-0 Yes .5mg Take 0.5 Un marivel 0.5 mg -19 mg by ity of capsule 21:01: mouth [place] 41 daily. Medical Branch tamsulosin 2020-0 Yes Take by Uni vers 0.4 mg 24 10-28 mouth 2 ity of hr capsule 21:01: (two) [place] 41 times Medical daily. Branch iohexol 2020-0 2020- No 100mL 100 mL, Unive rs (OMNIPAQUE 10-28 Intravenou it y of 350 17:15: 17:01 s, ONCE, 1 [place] BULK-100 00 :00 dose, Sat Medica l mL) 10/29/19 at [place] injection 1215, 100 mL Routine OXcarbazepi 2020-0 Yes 600mg 600 mg, Un marivel ne 10-28 Oral, ity of (TRILEPTAL) 14:00: [place]ILY, [place] tablet 600 00 First dose Med ical mg on [facility] Branch 10/29/19 at 0900, Until Discontinu ed metoprolol 2020-0 Yes 100mg 100 mg, Uni vers succinate 10-28 Oral, ity of XL (TOPROL 14:00: DAILY, [place] XL) tablet 00 First dose Med ical 100 mg on [facility] 10/29/19 at 0900, Until Discontinu ed losartan 2020-0 Yes 50mg 50 mg, Univers (COZAAR) 10-28 Oral, ity of tablet 50 14:00: DAILY, [place] mg 00 First dose Medical on [facility] 10/29/19 at 0900, Until Discontinu ed, Routine clopidogreL 2020-0 Yes 75mg 75 mg, Univ ers (PLAVIX) 10-28 Oral, ity of tablet 75 14:00: DAILY, [place] mg 00 First dose Medical on Sat Branch 10/29/19 at 0900, Until Discontinu ed, Routine buPROPion 2020-0 Yes 300mg 300 mg, Univ ers XL 10-28 Oral, ity of (WELLBUTRIN 14:00: [place]ILY, [place] XL) tablet 00 First dose Med ical 300 mg on Sat Branch 10/29/19 at 0900, Until Discontinu ed, Routine atorvastati 2020-0 Yes 40mg 40 mg, Univ ers n (LIPITOR) 10-28 Oral, QHS, it y of tablet 40 02:00: [place] mg 00 on Thu Medical 10/28/19 at Branch 2100, Until Discontinu ed, Routine tamsulosin 2020-0 Yes .4mg 0.4 mg, Univ ers (FLOMAX) 10-28 Oral, BID, ity o f capsule 0.4 01:00: First dose [place] mg 00 on Thu Medical 10/28/19 at Branch 2000, Until Discontinu ed, Routine Sliding 2020-0 Yes Subcutaneo Univ ers Scale - us, TID ity of Insulin - 22:00: MEALS+HS, [place] Aspart 00 First dose Medical (NOVOLOG) + on Thu Branch Fsbg 10/28/19 at Testing 1700, Until Discontinu ed, Routine sulfur 2019-0 2020- No 5mL 5 mL, Univers hexafluorid 10-27 Intravenou i ty of e microsphr 22:00: 20:45 s, ONCE, 1 [place] (LUMASON) 00 :00 dose, Fri Medic al injection 5 10/28/19 at Br anch mL 1700, Routine
member certification manager approving Restricted medication : HEBER REYES traMADoL 2020-0 2020- No 50mg 50 mg, Univer s (ULTRAM) 10-27 Oral, ity of tablet 50 19:49: 19:48 Q8HPRN, [place] mg 07 :07 Starting Medical Fri Branch 10/28/19 at 1449, Until 10/30/19 at 1448, Routine, Pain (scale 4-6) acetaminoph 2020-0 Yes 650mg 650 mg, Un marivel en 10-27 Oral, ity of (TYLENOL) 19:49: Q6HPRN, [place] tablet 650 03 Starting Medic al mg Fri [place] 10/28/19 at 1449, Until Discontinu ed, Routine, Pain (scale 1-3) aspirin 2020-0 2020- No 324mg 324 mg, Unive rs chewable 10-27 Oral, ity of tablet 324 19:15: 18:34 ONCE, 1 [place] mg 00 :00 dose, Fri Medical 10/28/19 at Branch 1415, Routine atorvastati atorvastati 2018-0 Yes Luis [address] [facility] 7-27 [facility] by [facility] Oxcarbazepi Oxcarbazepi Yes Luis not [facility] ne [facility] defined [facility] Immunizations Ordered Filled Immunization Date Status Comments Sour e Immunization Name Name Influenza High Dose 2017-12-08 Completed Unive rsity of 00:00:00 [facility] Influenza High Dose 2017-12-08 Completed Unive rsity of 00:00:00 [facility] Influenza High Dose 2017-12-08 Completed Unive rsity of 00:00:00 [facility] Influenza High Dose 2017-12-08 Completed Unive rsity of 00:00:00 [facility] Influenza High Dose 2013-11-15 Completed Unive rsity of 00:00:00 [facility] Influenza High Dose 2013-11-15 Completed Unive rsity of 00:00:00 [facility] Influenza High Dose 2013-11-15 Completed Unive rsity of 00:00:00 [facility] Influenza High Dose 2013-11-15 Completed Unive rsity of 00:00:00 [facility] Influenza Virus 2012-03-30 Completed Universit y of Vaccine 00:00:00 [facility] Influenza Virus 2012-03-30 Completed Universit y of Vaccine 00:00:00 [facility] Influenza Virus 2012-03-30 Completed Universit y of Vaccine 00:00:00 [facility] Influenza Virus 2012-03-30 Completed Universit y of Vaccine 00:00:00 [facility] Pneumococcal 2007-03-09 Completed University o f Polysaccharide, 00:00:00 [facility] PPSV23 (PNEUMOVAX) Branch Pneumococcal 2007-03-09 Completed [facility] o f Polysaccharide, 00:00:00 [place] Med ical PPSV23 (PNEUMOVAX) Branch Pneumococcal 2007-03-09 Completed [place] o f Polysaccharide, 00:00:00 [place] Med ical PPSV23 (PNEUMOVAX) Branch Pneumococcal 2007-03-09 Completed [place] o f Polysaccharide, 00:00:00 [place] Med ical PPSV23 (PNEUMOVAX) Branch Vital Signs Vital Name Observation Time Observation Value Comments Source Systolic blood 2021-01-10 19:29:00 169 mm[Hg] Univer sity of [facility] Diastolic blood 2021-01-10 19:29:00 70 mm[Hg] Unive rsity of [facility] Heart rate 2021-01-10 19:29:00 82 /min Universi ty of [facility] Body temperature 2021-01-10 19:29:00 36.67 Renee [facility] Respiratory rate 2021-01-10 19:29:00 18 /min [facility] Oxygen saturation in 2021-01-10 19:29:00 98 /min [facility] Arterial blood by [facility] Pulse oximetry Branch Body height 2021-01-10 15:34:00 193 cm Universi ty of [facility] Body weight 2021-01-10 15:34:00 139.254 kg Universi ty [facility] BMI 2021-01-10 15:34:00 37.37 kg/m2 Universi ty [facility] Systolic blood 2020-01-27 16:05:00 136 mm[Hg] Univer sity of [facility] Diastolic blood 2020-01-27 16:05:00 71 mm[Hg] Unive rsity of [facility] Heart rate 2020-01-27 16:05:00 59 /min Universi ty of [facility] Respiratory rate 2020-01-27 16:05:00 20 /min Univ ersity [facility] Body height 2020-01-27 16:05:00 190.5 cm Universi ty of [facility] Body weight 2020-01-27 16:05:00 146.33 kg Universi ty of [facility] BMI 2020-01-27 16:05:00 40.32 kg/m2 Universi ty [facility] Oxygen saturation in 2020-01-27 16:05:00 95 /min University of Arterial blood by [facility] Pulse oximetry Branch Systolic blood 2019-12-26 18:00:00 135 mm[Hg] Univer sity of pressure [place] [facility] Diastolic blood 2019-12-26 18:00:00 69 mm[Hg] Unive rsity of pressure [place] [facility] Heart rate 2019-12-26 18:00:00 75 /min Universi ty of [place] [facility] [place] Body temperature 2019-12-26 18:00:00 37.44 Renee Univ ersity of [place] [facility] Respiratory rate 2019-12-26 18:00:00 20 /min Univ ersity of [place] [facility] Oxygen saturation in 2019-12-26 18:00:00 98 /min University of Arterial blood by [facility] Pulse oximetry Branch Body height 2019-12-26 01:30:00 190.5 cm Universi ty of [place] [facility] [place] Body weight 2019-12-26 01:30:00 149.687 kg Universi ty of [place] [facility] BMI 2019-12-26 01:30:00 41.25 kg/m2 Universi ty of [place] [facility] Systolic blood 2019-12-25 18:02:00 130 mm[Hg] Univer sity of pressure [place] [facility] Diastolic blood 2019-12-25 18:02:00 76 mm[Hg] Unive rsity of pressure [place] [facility] Heart rate 2019-12-25 18:02:00 63 /min Universi ty of [place] [facility] Body temperature 2019-12-25 18:02:00 37 Renee Univ ersity of [place] [facility] Respiratory rate 2019-12-25 18:02:00 24 /min Univ ersity of [place] [facility] Body height 2019-12-25 18:02:00 182.9 cm Universi ty of [place] [facility] Body weight 2019-12-25 18:02:00 149.687 kg Universi ty of [place] [facility] BMI 2019-12-25 18:02:00 44.76 kg/m2 Universi ty of [place] [facility] Oxygen saturation in 2019-12-25 18:02:00 96 /min University of Arterial blood by [facility] Pulse oximetry Branch Systolic blood 2019-12-25 18:27:00 136 mm[Hg] Univer sity of pressure [place] [facility] Diastolic blood 2019-12-25 18:27:00 80 mm[Hg] Unive rsity of pressure [place] [facility] Heart rate 2019-12-25 18:27:00 63 /min Universi ty of [place] [facility] Body temperature 2019-12-25 18:27:00 37 Renee Univ ersity of [place] [facility] Respiratory rate 2019-12-25 18:27:00 24 /min Univ ersity of [place] [facility] Body weight 2019-12-25 18:27:00 149.687 kg Universi ty of [place] [facility] BMI 2019-12-25 18:27:00 44.76 kg/m2 Universi ty of [place] [facility] Oxygen saturation in 2019-12-25 18:27:00 97 /min University of Arterial blood by [place] Medi tyra Pulse oximetry Branch Systolic blood 2019-11-25 13:50:00 123 mm[Hg] Univer sity of pressure [place] [facility] Diastolic blood 2019-11-25 13:50:00 77 mm[Hg] Unive rsity of pressure [place] [facility] Heart rate 2019-11-25 13:50:00 67 /min Universi ty of [place] [facility] Body height 2019-11-25 13:50:00 193 cm Universi ty of [place] [facility] Body weight 2019-11-25 13:50:00 149.687 kg Universi ty of [place] [facility] BMI 2019-11-25 13:50:00 40.17 kg/m2 Universi ty of [place] [facility] Oxygen saturation in 2019-11-25 13:50:00 95 /min University of Arterial blood by [facility] tyra Pulse oximetry Branch Systolic blood 2019-10-29 15:58:00 128 mm[Hg] Univer sity of pressure [place] [facility] Diastolic blood 2019-10-29 15:58:00 73 mm[Hg] Unive rsity of pressure [place] [facility] Heart rate 2019-10-29 15:58:00 71 /min Universi ty of [place] [facility] Body temperature 2019-10-29 15:58:00 36.06 Renee Univ ersity of [place] [facility] Respiratory rate 2019-10-29 15:58:00 18 /min Univ ersity of [place] [facility] Oxygen saturation in 2019-10-29 15:58:00 94 /min University of Arterial blood by [place] Medi tyra Pulse oximetry Branch Body weight 2019-10-29 12:00:00 149.959 kg Universi ty of [place] [facility] BMI 2019-10-29 12:00:00 40.24 kg/m2 General acute hospital Body height 2019-10-28 21:58:00 193 cm General acute hospital Procedures Procedure Date / Time Performing Clinician Source Performed CT ABDOMEN PELVIS W 2021-01-10 16:51:27 Maggie Vann [facility] CONTRAST [facility] Branch LIPASE 2021-01-10 15:51:00 Singer [facility] COMP. METABOLIC PANEL 2021-01-10 15:51:00 Maggie Vann [facility] ([id number]) [facility] CBC WITH DIFF 2021-01-10 15:51:00 Vann, [facility] URINALYSIS 2021-01-10 15:51:00 [facility] NOTICE OF PRIVACY 2021-01-10 15:28:28 Doctor Unassigned, No [facility] PRACTICES [facility] CONSENT/REFUSAL FOR 2021-01-10 15:27:50 Doctor Unassigned, No [facility] DIAGNOSIS AND TREATMENT [facility] DNR 2020-01-13 06:01:00 Doctor Unassigned, No [facility] CBC WITHOUT DIFF 2019-12-26 12:09:00 Emily Klein [facility] acute hospital BASIC METABOLIC PANEL 2019-12-26 12:06:00 Emily Klein [facility] (NA, K, CL, CO2, Medical Branch GLUCOSE, BUN, CREATININE, CA) HEPATITIS B SURFACE 2019-12-26 12:06:00 John Cruz [facility] ANTIGEN [facility] HCV ANTIBODY 2019-12-26 12:06:00 John Cruz [facility] ABORH CONFIRMATION 2019-12-26 11:20:00 Howard Mcduffie [facility] XR CHEST 1 VW COVID 2019-12-26 03:06:11 [facility] HB ABO GROUPING 2019-12-26 02:34:00 Emily Klein [facility] LACTATE DEHYDROGENASE 2019-12-26 02:31:00 Ayden KleinElsy [facility] FERRITIN SERUM 2019-12-26 02:31:00 Ernie, MohsenElsy [facility] C-REACTIVE PROTEIN 2019-12-26 02:31:00 Ernie, Emily [facility] CBC WITHOUT DIFF 2019-12-26 02:31:00 [facility] / INR 2019-12-26 02:31:00 Ernie, Emily Un [facility] [place] D-DIMER 2019-12-26 02:31:00 [facility] 2019-12-26 02:31:00 [facility] THRLAS [facility] PROCALCITONIN 2019-12-26 02:31:00 Ernie, [facility] CT ABDOMEN PELVIS W WO 2019-12-25 19:54:10 Leandra Sigala [facility] XR CHEST 1 VW 2019-12-25 18:56:49 Leandra Sigala [facility] acute hospital HB ECG ROUTINE & RHYTHM 2019-12-25 18:54:48 Leandra Sigala [facility] Branch LIPASE 2019-12-25 18:42:00 Leandra Sigala General acute hospital TROPONIN I 2019-12-25 18:42:00 Leandra Sigala [facility] acute hospital COMP. METABOLIC PANEL 2019-12-25 18:42:00 Leandra Sigala Un [facility] ([id number]) [facility] Branch N-TERMINAL PRO-BNP 2019-12-25 18:42:00 Leandra Sigala [facility] COVID-19 (ID NOW RAPID 2019-12-25 18:42:00 Leandra Sigala U [facility]) Medical Branch CBC WITH DIFF 2019-12-25 18:41:00 Leandra Sigala General acute hospital CONSENT/REFUSAL FOR 2019-12-25 18:21:31 Doctor Unassigned, No [facility]AT[facility] Name Medical [place] PULMONARY FUNCTION TEST 2019-12-15 14:16:22 Leslee Sharma [facility] (RESULTS) Medical Branch ASSIGNMENT OF BENEFITS 2019-11-25 13:33:14 Doctor Unassigned, No [facility] Name Medical Branch CT CHEST PULMONARY 2019-10-29 17:05:49 Andi Benavides [facility] ANGIOGRAM Medical Branch TROPONIN I 2019-10-29 08:37:00 Heber Reyes [facility] acute hospital BASIC METABOLIC PANEL 2019-10-29 08:37:00 [facility] (NA, K, CL, CO2, Medical Branch GLUCOSE, BUN, CREATININE, CA) CBC WITH DIFF 2019-10-29 08:37:00 Silva Arora General acute hospital N-TERMINAL PRO-BNP 2019-10-29 08:37:00 Heber Reyes [facility] TROPONIN I 2019-10-29 00:53:00 Kennedy [facility] POCT GLUCOSE (AUTOMATED) 2019-10-29 00:35:00 Andi Benavides [facility] TROPONIN I 2019-10-28 21:56:00 Jaylon [facility] POCT GLUCOSE (AUTOMATED) 2019-10-28 21:44:00 Andi Benavides [facility] ECHO ROUTINE W/DOPPLER 2019-10-28 19:51:04 Andi Bneavides [facility] COLOR [facility] COVID-19 (ID NOW RAPID 2019-10-28 18:36:00 Evangelina Song [facility] TESTING) Medical Branch XR CHEST 1 VW 2019-10-28 18:27:59 Evangelina Song [facility] Medical Branch LIPASE 2019-10-28 17:40:00 Evangelina Song [facility] Medical Branch MAGNESIUM 2019-10-28 17:40:00 Evangelina Song [facility] TROPONIN I 2019-10-28 17:40:00 Evangelina Song [facility] THYROID STIMULATING 2019-10-28 17:40:00 Silva Arora [facility] HORMONE [facility] COMP. METABOLIC PANEL 2019-10-28 17:40:00 Evangelina Song [facility] ([id number]) Medical Branch LIPID PANEL 2019-10-28 17:40:00 Kennedy Andi [facility] ([id number])(TOTAL Medical Branch CHOLESTEROL, TRIGLYCERIDES, HDL) CBC WITH DIFF 2019-10-28 17:40:00 Evangelina Song [facility] GLYCOSYLATED HEMOGLOBIN 2019-10-28 17:40:00 [facility] Medical Branch PROTHROMBIN TIME / INR 2019-10-28 17:40:00 [facility] 2019-10-28 17:40:00 Evangelina Song [facility] N-TERMINAL PRO-BNP 2019-10-28 17:40:00 Evangelina Song [facility] EKG-12 LEAD 2019-10-28 17:39:38 Evangelina Song [facility] EKG-12 LEAD 2019-10-28 17:33:33 Evangelina Song [facility] NOTICE OF PRIVACY 2019-10-28 17:22:31 Doctor Unassigned, No [facility] PRACTICES Name Medical Branch CONSENT/REFUSAL FOR 2019-10-28 17:22:19 Doctor Unassigned, No [facility] DIAGNOSIS AND TREATMENT Name Medical Branch Encounters Start End Encounter Admission Attending Care Care Encounter Source Date/Time Date/Time Type Type Clinicians Facility Department ID 2020-12-08 Emergency [facility] [id number] [facility]07 [facility] [id number] Univers 18:18:41 [facility] 2021-02-04 2021-02-04 Outpatient TAMI MILLER [facility] [id number] Univers 08:40:00 08:40:00 TAMI PUENTE [id number] [facility] 2021-01-24 2021-01-24 Telephone Cindi [facility] [id number] Univers 00:00:00 00:00:00 [facility] [id number] ity of [facility] [id number] Sven as JOHN?BLEA [phone] Id dical KNEY 092 [place] MEDICAL OFFICE [facility]ILDING 2021-01-10 2021-01-10 Emergency [facility] [id number] Univers 09:35:00 13:31:00 MAGGIE ity of [facility] 2021-01-10 2021-01-10 Emergency [facility] [id number] Univers 09:35:00 13:31:00 Maggie ORELLANA [id number] i ty of [place] [id number] [place] [phone] [place] [id number] [place] 2020-01-27 2020-01-27 Outpatient R LESLEE SHARMA [facility] [id number] Univers 09:20:00 09:20:00 LESLEE SHARMA [id number] i ty of [facility] 2020-01-27 2020-01-27 Outpatient R LESLEE SHARMA [facility] [id number] Univers 09:20:00 09:20:00 LESLEE SHARMA i ty of [facility] 2020-01-27 2020-01-27 Office [facility] [id number] Univers 08:58:14 09:18:14 Visit Leslee Orellana [id number] i ty [id number] [place] [facility] [phone] Id christinaar nal 085 [facility] 2020-01-13 2020-01-13 Orders Doctor VIKTOR [id number] Univers 00:00:00 00:00:00 Only Unassigned, WALTER [id number] ity of [place] [facility] [id number] Sven as [phone] [facility] 009 [place] 2019-12-27 2019-12-27 Transition Anegl Stubbs [id number] Univers 00:00:00 00:00:00 of Care Keagan Frazier [id number] ity of [place] [id number] [place] [phone] [facility] 403 Branch 2019-12-25 2019-12-26 Emergency Leandra Sigala 1.2. [id number] Univers 12:28:00 16:15:00 Howard Mcduffie [place] [id number] ity of Hospital [id number] Sven as [phone] [facility] 097 [place] 2019-12-25 2019-12-25 Urgent Provider, [facility] [id number] Univers 12:20:00 12:40:00 Care Benjamin Clinton [facility] [id number] ity of [place] [id number] Sven as Professio [phone] [address] Office Building One 2019-12-25 2019-12-25 Nurse Nurse, [facility] 1.2 .[id number] Univers 12:16:13 12:31:13 Visit Benjamin Clinton [facility] [id number] ity of [place] [id number] Sven as Professio [phone] [address] Office [address] [facility] 2019-12-25 2019-12-25 Outpatient R [facility] [id number] Univers 12:20:00 12:20:00 [id number] ity [facility] 2019-12-25 2019-12-25 Outpatient R RODM [facility] [id number] Univers 12:20:00 12:20:00 [facility] 2019-12-25 2019-12-25 Outpatient R EBATIYAM [facility] [id number] Univers 12:15:00 12:15:00 BENJAMIN [facility] 2019-12-15 2019-12-15 Outpatient R [facility] [id number] Univers 08:00:00 08:00:00 ity [facility] 2019-12-15 2019-12-15 Outpatient R CRISTIANO [facility] [id number] Univers 08:00:00 08:00:00 RANDY ity of [facility] 2019-12-15 2019-12-15 Orders ALEXANDRO Sharma [id number] Univers 00:00:00 00:00:00 Only Leslee SHEETS [id number] i ty of CL[place] [id number] [phone] [facility] 084 [place] 2019-12-12 2019-12-12 Laboratory Only, Adc Test [facility] 1.2.840. [id number] Univers 09:17:28 09:32:28 Only Carl Torres [id number] ity of Leslee Sharma [id number] [facility] [phone] [facility] 353 [place] 2019-12-12 2019-12-12 Outpatient [facility] [id number] Univers 09:30:00 09:30:00 [id number] ity of [facility] 2019-12-12 2019-12-12 Outpatient R LESLEE SHARMA [facility] [id number] Univers 09:30:00 09:30:00 LESLEE SHRAMA i ty of [facility] 2019-11-25 2019-11-25 Office Zachary [facility] [id number] Univers 08:35:15 09:32:34 Visit Leslee Orellana [id number] i ty of [id number] Professio [phone] Id dical nal 085 [facility] 2019-11-25 2019-11-25 Outpatient R LESLEE SHARMA [facility] [id number] Univers 08:40:00 08:40:00 LESLEE SHARMA [id number] i ty of [facility] 2019-11-25 2019-11-25 Outpatient R LESLEE SHARMA [facility] [id number] Univers 08:40:00 08:40:00 LESLEE SHARMA i ty of [facility] 2019-11-25 2019-11-25 Orders Doctor HOANG [id number] Univers 00:00:00 00:00:00 Only UnassignedWALTER [id number] ity of [place] [facility] [id number] Sven as [phone] [facility] 009 Branch 2019-10-31 2019-10-31 Transition Angel Stubbs [id number] Univers 00:00:00 00:00:00 of Care Keagan Frazier 350.1.13.10 [place] [id number] [facility] [address] 2019-10-28 2019-10-29 Emergency Evangelina Song [facility] 1.2.8 40.114 [id number] [facility] 12:30:00 16:00:00 Andi Benavides 350.1.13.10 [place] [phone] [facility] [address] 2017-09-04 2017-09-04 [facility] [id number] 08:30:00 08:30:00 [facility] Results Test Description Test Time Test Comments Results Result Comments Source COMP. METABOLIC PANEL (33605) 2021-01-10 16:25:03 Test Item Value Reference Range Interpretation Comme nts NA (test code = 1668501036) 137 mmol/L 135-145 K (test code = 6375481503) 5.1 mmol/L 3.5-5.0 H CL (test code = 3829510544) 100 mmol/L 98-108 CO2 TOTAL (test code = 1137024805) 29 mmol/L 23-31 AGAP (test code = 7198191950) 2-16 BUN (test code = 5061522226) 24 mg/dL 7-23 H GLUCOSE (test code = 9790756187) 136 mg/dL 70-110 H CREATININE (test code = 1.26 mg/dL 0.60-1.25 H 9803782602) TOTAL BILI (test code = 0.8 mg/dL 0.1-1.9 1652645913) CALCIUM (test code = 6417304923) 9.8 mg/dL 8.6-10.6 T PROTEIN (test code = 0762851052) 7.5 g/dL 6.3-8.2 ALBUMIN (test code = 5479057827) 4.5 g/dL 3.5-5.0 ALK PHOS (test code = 9615692163) 103 U/L 34-122 ALTv (test code = 1742-6) 42 U/L 5-50 AST(SGOT) (test code = 9217005369) 39 U/L 13-40 eGFR (test code = 9471002963) mL/min/1.73m2 NETTIE (test code = NETTIE) Association of Glomerular Filtration Rate (GFR) and Staging of Kidney Disease* + +-------- + ------+| GFR (mL/min/1.73 m2) ?| With Kidney Damage ?| ?Without Kidney Damage+ +-- + +| ?>90 ?| ?Stage one ?| ? Normal ?+ +------- + -------+| ?60-89 ?| ?Stage two ?| ? Decreased GFR ? + +-------- + ------+| ?30-59 ?| ?Stage three ?| ? Stage three ? + +-------- + ------+| ?15-29 ?| ?Stage four ? | ? Stage four ?+ +------- + -------+| ?<15 (or dialysis) ? ?| ?Stage five ? | ? Stage five ?+ +------- + -------+ *Each stage assumes the associated GFR level has been in effect for at least three months. ?Stages 1 to 5, with or without kidney disease, indicate chronic kidney disease. Notes: Determination of stages one and two (with eGFR >59mL/min/1.73 m2) requires estimation of kidney damage for at least three months as defined by structural or functional abnormalities of the kidney, manifested by either:Pathological abnormalities or Markers of kidney damage (including abnormalities in the composition of the blood or urine or abnormalities in imaging tests). Lab Interpretation (test code = Abnormal 65648-7) [facility] 16:24:43 Test Item Value Reference Range Interpretation Comments LIPASE (test code = 4260825523) 144 U/L 0-220 Lab Interpretation (test code = Normal 38351-6) [facility] WITH [id number] 16:06:02 Test Item Value Reference Range Interpretation Comments WBC (test code = See_Comment [Automated message] 6690-2) The system [employer] generated this result transmitted ref erence range: 4.20 - 1 0.70 10*3/?L. The re ference range was not u sed to interpret this result as normal/abnor mal. RBC (test code = See_Comment [Automated message] 789-8) The system [employer] generated this result transmitted ref erence range: 4.26 - 5 .52 10*6/?L. The re ference range was not u sed to interpret this result as normal/abnor mal. HGB (test code = 15.2 g/dL 12.2-16.4 718-7) HCT (test code = 45.2 % 38.4-49.3 4544-3) MCV (test code = 89.5 fL 81.7-95.6 787-2) MCH (test code = 30.1 pg 26.1-32.7 785-6) MCHC (test code = 33.6 g/dL 31.2-35.0 786-4) RDW-SD (test code 41.6 fL 38.5-51.6 = 45824-0) RDW-CV (test code 12.7 % 12.1-15.4 = 788-0) PLT (test code = See_Comment [Automated message] 777-3) The system [employer] generated this result transmitted ref erence range: 150 - 32 8 10*3/?L. The re ference range was not u sed to interpret this result as normal/abnor mal. MPV (test code = 10.8 fL 9.8-13.0 52140-8) NRBC/100 WBC (test See_Comment [Automat ed message] code = 9994223143) The [employer] which generated this result transmitted ref erence range: 0.0 - 10 .0 /100 WBCs. The refer ence range was not u sed to interpret this result as normal/abnor mal. NRBC x10^3 (test <0.01 See_Comment [Automated message] code = 3956726704) The syste m which generated this result transmitted ref erence range: 10*3/?L. The reference range was not used to interpr et this result as normal/abnormal . GRAN MAT (NEUT) % 67.8 % (test code = 770-8) IMM GRAN % (test 0.40 % code = 7615772236) LYMPH % (test code 18.0 % = 736-9) MONO % (test code 9.6 % = 5905-5) EOS % (test code = 3.4 % 713-8) BASO % (test code 0.8 % = 706-2) GRAN MAT 6.74 10*3/uL 1.99-6.95 x10^3(ANC) (test code = 1529837860) IMM GRAN x10^3 0.04 10*3/uL 0.00-0.06 (test code = 2291725858) LYMPH x10^3 (test 1.79 10*3/uL 1.09-3.23 code = 731-0) MONO x10^3 (test 0.96 10*3/uL 0.36-1.02 code = 742-7) EOS x10^3 (test 0.34 10*3/uL 0.06-0.53 code = 711-2) BASO x10^3 (test 0.08 10*3/uL 0.01-0.09 code = 704-7) [facility] TexasABORH [id number] 17:19:48 Test Item Value Reference Range Interpretation Comments ABO & RH (test code A Positive Performe d at [facility] = 20) [facility] Blood [facility]3 [facility] [address]Vrnq Free: [phone] A No. [id number] [facility] TexasC-REACTIVE [id number] 16:37:00 Test Item Value Reference Range Interpretation Comments CRP (test code = 7467097679) 4.6 mg/dL <0.8 H Lab Interpretation (test code = Abnormal 37239-1) [facility] TexasHCV [id number] 15:40:00 Test Item Value Reference Range Interpretation Comments HCV Ab (test code = 55152-8) Negative HCV Semi-Quantitative (test code = 57247-6) [facility] TexasHEPATITIS B SURFACE [id number] 15:24:00 Test Item Value Reference Range Interpretation Comments HBsAg Semi-Quantitative (test code = Negative Negative 5195-3) [facility] WITHOUT [id number] 12:55:00 Test Item Value Reference Range Interpretation Comments WBC (test code = See_Comment [Automated message] 6690-2) The system [employer] generated this result transmitted ref erence range: 4.20 - 1 0.70 10*3/?L. The reference range was not used to int erpret this result as normal/abnormal . RBC (test code = 789-8) See_Comment [Au tomated message] The system [employer] generated this result transmitted ref erence range: 4.26 - 5 .52 10*6/?L. The reference range was not used to int erpret this result as normal/abnormal . HGB (test code = 718-7) 13.4 g/dL 12.2-16.4 HCT (test code = 38.8 % 38.4-49.3 4544-3) MCH (test code = 785-6) 31.0 pg 26.1-32.7 MCV (test code = 787-2) 89.8 fL 81.7-95.6 MCHC (test code = 34.5 g/dL 31.2-35 786-4) PLT (test code = 777-3) See_Comment L [Au tomated message] The system [employer] generated this result transmitted ref erence range: 150 - 32 8 10*3/?L. The reference range was not used to int erpret this result as normal/abnormal . MPV (test code = 12.2 fL 9.8-13 84323-0) RDW-CV (test code = 12.8 % 12.1-15.4 788-0) RDW-SD (test code = 42.5 fL 38.5-51.6 56637-8) NRBC x10^3 (test code = <0.01 See_Comment [Au tomated message] 9262292300) The system [employer] generated this result transmitted ref erence range: 10*3/?L. The reference range was not used to int erpret this result as normal/abnormal . NRBC/100 WBC (test code See_Comment [Au tomated message] = 3077922961) The system [employer] generated this result transmitted ref erence range: 0.0 - 10 .0 /100 WBCs. The reference range was not used to int erpret this result as normal/abnormal . IPF % (test code = 9.0 % 1.2-10.7 Platelet count 0582414464) measured by fluorescence me thod. Lab Interpretation Abnormal (test code = 21259-7) [facility] METABOLIC PANEL (NA, K, CL, CO2, GLUCOSE, BUN, CREATININE, CA)2019-12-26 12:40:00 Test Item Value Reference Range Interpretation Comments NA (test code = 134 mmol/L 135-145 L 1917203076) K (test code = 4.0 mmol/L 3.5-5 Slight 1711984229) hemolysis CL (test code = 101 mmol/L 98-108 0621452128) CO2 TOTAL (test code 26 mmol/L 23-31 = 6502905513) AGAP (test code = 2-16 5154823342) BUN (test code = 18 mg/dL 7-23 Slight 9247377980) hemolysis GLUCOSE (test code = 172 mg/dL 70-110 H 9694839286) CREATININE (test code 1.04 mg/dL 0.6-1.25 = 4665532022) CALCIUM (test code = 7.9 mg/dL 8.6-10.6 L 8695080067) eGFR Calculation mL/min/1.73m2 (Non-) (test code = 8179254762) eGFR Calculation mL/min/1.73m2 () (test code = 0263480313) ENTTIE (test code = NETTIE) Association of Glomerular Filtration Rate (GFR) and Staging of Kidney Disease* + -----+ --------+ +| GFR (mL/min/1.73 m2) ?| With Kidney Damage ?| ?Without Kidney Damage+ +------- +---- --+| ?>90 ?| ?Stage one ?| ? Normal ?+ ------+ ---------+--------- +| ?60-89 ?| ?Stage two ?| ? Decreased GFR ? + -----+ --------+ +| ?30-59 ?| ?Stage three ?| ? Stage three ? + -----+ --------+ +| ?15-29 ?| ?Stage four ? | ? Stage four ?+ ------+ ---------+--------- +| ?<15 (or dialysis) ? ?| ?Stage five ? | ? Stage five ?+ ------+ ---------+--------- + *Each stage assumes the associated GFR level has been in effect for at least three months. ?Stages 1 to 5, with or without kidney disease, indicate chronic kidney disease. Notes: Determination of stages one and two (with eGFR >59mL/min/1.73 m2) requires estimation of kidney damage for at least three months as defined by structural or functional abnormalities of the kidney, manifested by either:Pathological abnormalities or Markers of kidney damage (including abnormalities in the composition of the blood or urine or abnormalities in imaging tests). Lab Interpretation Abnormal (test code = 21633-1) [facility] TexasXR CHEST 1 VW [id number] 06:59:15 Unchanged appearance of bilateral mid and lower lung zone interstitialabnormalities concerning for atypical infectious process such as Covid 19. Disclaimer: Generally, the findings on chest imaging in COVID-19 are notspecific, and overlap with other infections, including influenza, H1N1,SARS and MERS.According to the Centers for Disease Control (CDC) and the [employer], viral testing remains the only specific method of diagnosiseven if CXR or CT findings are suggestive of COVID-19. PROCEDURE: CHEST XRAY CLINICAL INDICATION: COVID 19 If in room already. COMPARISON: 12/25/2019 FINDINGS: Lungs: Unchanged bilateral mid and lower lung zone predominant interstitialabnormalities when compared to same day radiograph and CT. Pleura: No pleural effusion or pneumothorax. Pleural-based calcificationswithin the right lung base are better visualized on reference CT. The heartis normal in si ze. No acute bony abnormality. Cerclage wires projecting over the left lateralribs. [facility], Radiant Results Inft User - 12/26/2019 1:00 AM CSTPROCEDURE: CHEST XRAYCLINICAL INDICATION: COVID 19 If in room already.COMPARISON: 12/25/2019FINDINGS:Lungs: Unchanged bilateral mid and lower lung zone predominan t interstitialabnormalities when compared to same day radiograph and CT.Pleura: No pleural effusion or pneumothorax. Pleural-based calcificationswithin the right lung base are better visualized on reference CT. The heartis normal in size.No acute bony abnormality. Cerclage wires projecting over the left lateralribs.IMPRESSIONUnchanged appearance of bilateral mid and lower lung zone interstitialabnormalities concerning for atypical infectious process such as Covid 19. Disclaimer: Generally, the findings on chest imaging in COVID-19 are notspecific, and overlap with other infections, including influenza, H1N1,SARS and MERS.According to the Centers for Disease Control (CDC) and the [employer], viral testing remains the only specific method of diagnosiseven if CXR or CT findings aresuggestive of COVID-19.[facility] TexasFERRITIN [id number] 04:56:00 Test Item Value Reference Range Interpretation Comments FERRITIN (test code = 417.0 ng/mL 18464 2160596408) NETTIE (test code = NETTIE) Biotin has been reported to cause a negative bias, interpret results relative to patient's use of biotin. Lab Interpretation (test Normal code = 17503-8) [facility] TexasPROCALCITONIN2020-11-16 03:37:00 Test Item Value Reference Range Interpretation Comments Procalcitonin (test 0.07 ng/mL <0.07 H code = 3479796015) NETTIE (test code = NETITE) INTERPRETATION OF PROCALCITONIN RESULTS IN ADULTS >= 18 YEARS OF AGE Initiation and discontinuation of antibiotics on patients with suspected or confirmed Lower Respiratory Tract Infection in Adults >= 18 years of age. + +-------- --------+ + -----+|Procalcitonin |Interpretation ?|Antibiotic ? ? |Considerations ? |ng/mL ? | ?|recommendation | ? + +-------- --------+ + -----+| <0.1 ? | Bacterial ? ? ?| Strongly ? ? ?| ? | ?| infection very | discouraged ? | Overruling: ? | ?| unlikely ? ? ? | ? | ? Clinically unstable ? ? ? + +-------- --------+ + ? High risk for adverse ? ? | <0.25 ?| Bacterial ? ? ?| Discouraged ? | ? outcome ? | ?| infection ? ? ?| ? | ? SEE IMPORTANT NOTE ?| ?| unlikely ? ? ? | ? | ? + +-------- --------+ + -----+| >=0.25 ? ? ? | Bacterial ? ? ?| Encouraged ? ?| ? | ?| infection ? ? ?| ? | ? | ?| likely ? | ? | Consider treatment failure ?+ +------- ---------+ -+ if levels does not decrease | >0.5 ? | Bacterial ? ? ?| Strongly ? ? ?| appropriately ? | ?| infection very | encouraged ? ?| ? | ?| likely ? | ? | ? + +-------- --------+ + -----+ Discontinuation of antibiotics in high-acuity patients with suspected or confirmed sepsis in Adults >= 18 years of age. + +-------- --------+ + -----+|Procalcitonin |Interpretation ?|Antibiotic ? ? |Considerations ? |ng/mL ? | ?|recommendation | ? + +-------- --------+ + -----+| <0.25 ?| Bacterial ? ? ?| Strongly ? ? ?| ? | ?| infection very | discouraged ? | Overruling: ? | ?| unlikely ? ? ? | ? | ? Clinically unstable ? ? ? + +-------- --------+ + ? High risk for adverse ? ? | <0.5 or drop | Bacterial ? ? ?| Discouraged ? | ? outcome ? | >80% from ? ?| infection ? ? ?| ? | ? SEE IMPORTANT NOTE ?| highest PCT ?| unlikely ? ? ? | ? | ? | level ?| ?| ? | ? + +-------- --------+ + -----+| >=0.5 ?| Bacterial ? ? ?| Encouraged ? ?| ? | ?| infection ? ? ?| ? | ? | ?| likely ? | ? | Consider treatment failure ?+ +------- ---------+ -+ if levels does not decrease | >1.0 ? | Bacterial ? ? ?| Strongly ? ? ?| appropriately ? | ?| infection very | encouraged ? ?| ? | ?| likely ? | ? | ? + +-------- --------+ + -----+ Percentage of drop of Procalcitonin calculation for Discontinuation of antibiotics in high-acuity patients with suspected or confirmed sepsis in Adults >= 18 years of age. ? Procalcitonin highest{}-Procalcitonin current{}Delta Procalcitonin = x100% ? Procalcitonin current {} IMPORTANT NOTE: Procalcitonin may be elevated without bacterial infection by physiologic stress related to trauma, pierson, chronic dialysis, metastatic cancer, surgery in the past seven days, malaria, some fungal infections, and some forms of vasculitis. The interpretation algorithm may not apply to patients with immunosuppression (equivalent of >10 mg of prednisone daily), HIV with CD4 cell count < 350 cells/mm3, active malignancy on systemic chemotherapy, solid organ transplant or hematopoietic stem cell transplantation, or hospital acquired pneumonia. Additionally, some clinical trials of procalcitonin have excluded patients with shock requiring vasopressor use, acute respiratory failure requiring mechanical ventilation, or those with known lung abscess/empyema. For further information please refer to:[email or web address] Lab Interpretation Abnormal (test code = 88968-6) [facility] TexasType and Screen - ONCE [id number] 03:28:15 Test Item Value Reference Range Interpretation Comments ABO & RH (test code A POSITIVE Performe d at [facility] = 20) [facility] Blood Bank3 01 [facility] [address]Jevt Free: [phone] A No. [id number] IAT (test code = Negative Performed a t [facility] 1185) [facility] Blood Bank[address] [place], [place] [address] [place] [address]Ufba Free: [phone] A No. [id number] [facility] TexasD-[id number] 02:55:00 Test Item Value Reference Interpretation Comments Range D-DIMER (test code = See_Comment H [Autom ated 2819447471) message] The system which generated this result transmitted reference range : <0.50 ?g/mL (FEU). The reference range was not used to interpret this result as normal/abnormal . NETTIE (test code = This test may be NETTIE) used in conjunction with a clinical pretest probability (PTP) assessment model to exclude venous thromboembolism (VTE) in patients suspected of deep venous thrombosis (DVT) and pulmonary embolism (PE) A D-Dimer value less than 0.50 ?g/ml (FEU) has a negative predicative value of 96 to 100% (95% CI)and 97 to 100% (95% CI) as an aid in the diagnosis of deep vein thrombosis (DVT) and pulmonary embolism when there is low or moderate pretest probability of PE or DVT. D-Dimer values are expressed in initial fibrinogen equivalent units (FEU)" The assay results should be used with other information, including the clinical context, in forming a diagnosis. Lab Interpretation Abnormal (test code = 45078-3) [facility] TexasaPTT2020-11-16 02:55:00 Test Item Value Reference Range Interpretation Comments APTT Patient (test code See_Comment L [Au tomated message] = 3173-2) The system [employer] generated this result transmitted ref erence range: 26 - 36 Seconds. The reference range was not used to int erpret this result as normal/abnormal . Lab Interpretation (test Abnormal code = 70423-1) [facility] TexasProthrombin Time / [id number] 02:55:00 Test Item Value Reference Range Interpretation Comments PROTIME PATIENT (test See_Comment H [Auto mated message] code = 5964-2) The system [facility] generated this result transmitted ref erence range: 10.1 - 1 2.6 Seconds. The reference range was not used to int erpret this result as normal/abnormal . INR (test code = 6301-6) Nor mal INR <1.1; Warfarin Therap eutic range 2.0 to 3. 0 or 2.5 to 3.5, dep ending upon the indica tions. Lab Interpretation (test Abnormal code = 98201-8) [facility] TexasLACTATE [id number] 02:54:00 Test Item Value Reference Range Interpretation Comments LDH (test code = 4221595944) 629 U/L 300-600 H Lab Interpretation (test code = Abnormal 95598-5) [facility] TexasCBC WITHOUT [id number] 02:51:00 Test Item Value Reference Range Interpretation Comments WBC (test code = See_Comment [Automated message] 6690-2) The system [employer] generated this result transmitted ref erence range: 4.20 - 1 0.70 10*3/?L. The reference range was not used to int erpret this result as normal/abnormal . RBC (test code = 789-8) See_Comment [Au tomated message] The system [employer] generated this result transmitted ref erence range: 4.26 - 5 .52 10*6/?L. The reference range was not used to int erpret this result as normal/abnormal . HGB (test code = 718-7) 14.8 g/dL 12.2-16.4 HCT (test code = 43.9 % 38.4-49.3 4544-3) MCH (test code = 785-6) 30.5 pg 26.1-32.7 MCV (test code = 787-2) 90.3 fL 81.7-95.6 MCHC (test code = 33.7 g/dL 31.2-35 786-4) PLT (test code = 777-3) See_Comment L [Au tomated message] The system [employer] generated this result transmitted ref erence range: 150 - 32 8 10*3/?L. The reference range was not used to int erpret this result as normal/abnormal . MPV (test code = 12.4 fL 9.8-13 84925-8) RDW-CV (test code = 12.8 % 12.1-15.4 788-0) RDW-SD (test code = 42.4 fL 38.5-51.6 66783-7) NRBC x10^3 (test code = <0.01 See_Comment [Au tomated message] 9158918806) The system [employer] generated this result transmitted ref erence range: 10*3/?L. The reference range was not used to int erpret this result as normal/abnormal . NRBC/100 WBC (test code See_Comment [Au tomated message] = 6164580960) The system [employer] generated this result transmitted ref erence range: 0.0 - 10 .0 /100 WBCs. The reference range was not used to int erpret this result as normal/abnormal . IPF % (test code = 8.1 % 1.2-10.7 Platelet count [id number]) measured by fluorescence me thod. Lab Interpretation Abnormal (test code = 62913-5) [facility] TexasCT ABDOMEN PELVIS W WO [id number] 21:10:49 Colonic diverticulosis without evidence for acute diverticulitis. No definite findings suggest site of gastrointestinal hemorrhage. Nodular right basilar pleural thickening with calcified pleural plaques. Atherosclerosis. Additional findings, as above. RL: [id number]: [id number] EXAMINATION:CT ABDOMEN PELVIS W WO CONTRAST ORDERING PHYSICIAN:LEANDRA SIGALA CLINICAL HISTORY: GI bleed Nausea, vomiting ; COMPARISON:None available TECHNIQUE:Axial CT of the abdomen and pelvis dated before and after the intravenousadministration of contrast a ccording to angiographic protocol. Portalvenous and delayed images of the abdomen and pelvis also isnoted. [place] coronal reformatted images provided. The examination was performedaccording to ALARA principles. FINDINGS:Right basilar scarring/atelectasis. Several calcified rightbasilar pleural plaques posteriorly. Left basilar scarring-atelectasis. Nopleural effusion The liver, both adrenal glands and the pancreas are unremarkable. Spleen ismildly enlarged. Portal vein is patent. Gallbladder is unremarkable.Kidneys enhance symmetrically. 2.4 cm left renal cyst. 0.8 cm rightinferior pole renalcyst. No hydronephrosis or urolithiasis. Urinarybladder is unremarkable. Small hiatal hernia. Stomach is otherwiseunremarkable small bowel is normal caliber.. The appendix is normal.Colonic diverticulosis without evidence for acute diverticulitis. Nodefinite findings suggest site of gastrointestinal bleeding. Abdominalaorta is normal caliber. Moderate atherosclerotic plaque in calcificationof the abdominal aorta. No abdominal or pelvic lymphadenopathy. No free airor free fluid. Fat-containing ventral abdominal hernia. No acute bonyabnormality. Degenerative changes in the lumbar spine. [facility], RadiantResults Inft User - 12/25/2019 3:12 PM CSTEXAMINATION:CT ABDOMEN PELVIS W WO CONTRASTORDERING PHYSICIAN: LEANDRA ESCAMILLAUNLECLINICAL HISTORY: GI bleed Nausea, vomiting ;COMPARISON:None availableTECHNIQUE:Axial CT of the abdomen and pelvis dated before and after the intravenousadministration of contrast according to angiographic protocol. Portalvenous and delayed images of the abdomen and pelvis also is noted. [place] coronal reformatted images provided. The examination was performedaccording to ALARA principles.FINDINGS:Right basilar scarring/atelectasis. Several calcified rightbasilar pleural plaques posteriorly. Left basilar scarring-atelectasis. Nopleural effusionThe liver, both adrenal glands and the pancreas are unremarkable. Spleen ismildly enlarged. Portal vein is patent. Gallbladder is unremarkable.Kidneys enhance symmetrically. 2.4 cm left renal cyst. 0.8 cm rightinferior pole renalcyst. No hydronephrosis or urolithiasis. Urinarybladder is unremarkable. Small hiatal hernia. Stomach is otherwiseunremarkable small bowel is normal caliber.. The appendix is normal.Colonic diverticulosis without evidence for acute diverticulitis. Nodefinite findings suggest site of gastrointestinal bleeding. Abdominalaorta is normal caliber. Moderate atherosclerotic plaque in calcificationof the abdominal aorta. No abdominal or pelvic lymphadenopathy. No free airor free fluid. Fat-containing ventral abdominal hernia. No acute bonyabnormality. Degenerative changes in the lumbar spine.IMPRESSIONColonic diverticulosis without evidence for acute diverticulitis.No definite findings suggest site of gastrointestinal hemorrhage.Nodular right basilar pleural thickening with calcified pleural plaques.Atherosclerosis.Additional findings, as above.RL: [id number]: [id number] signed by Reji Mohamud MD at 12/25/2019 3[facility] [id number] 20:41:27 Small bilateral pleural effusions. Mild bibasilar atelectasis/scarring or infiltrate. Left midlung scarring. RL: [id number]: [id number] EXAMINATION:XR CHEST 1 VW ORDERING PHYSICIAN: LEANDRA SIGALA CLINICAL HISTORY: cough ; COMPARISON:Chest one view dated 10/28/2019 TECHNIQUE:Frontal view of the chest obtained on 2 films. FINDINGS:Small idalia ateral pleural effusions. Mild hazy bibasilaratelectasis/scarring or infiltrate. Left midlung scarring. No pneumothorax.Left chest surgical wires. Cardiac mediastinal silhouette is unchanged. Noacute bony abnormality. [facility], Radiant Results Inft User - 12/25/2019 2:42 PM CSTEXAMINATION:XR CHEST 1 VWORDERING PHYSICIAN: LEANDRA ARCELINICAL HISTORY: cough ;COMPARISON:Chest one view dated 10/28/2019TECHNIQUE:Frontal view of the chest obtained on 2 films.FINDINGS:Small bilateral pleural effusions. Mild hazy bibasilaratelectasis/scarring or infiltrate. Left midlung scarring. No pneumothorax.Left chest surgical wires. Cardiac mediastinal silhouette is unchanged. Noacute bony abnormality.IMPRESSIONSmall bilateral pleural effusions.Mild bibasilar atelectasis/scarring or infiltrate.Left midlung scarri ng.RL: [id number]: [id number] signed by Reji Mohamud MD at 12/25/2019 2:[facility] [id number] 19:27:00 Test Item Value Reference Range Interpretation Comments WBC (test code = See_Comment [Automated 5513-2) message] The sy stem which generated this result transmitted reference range : 4.20 - 10.70 10*3/?L. The reference range was not used to interpret this result as normal/abnormal . RBC (test code = See_Comment [Automated 975-8) message] The sy stem which generated this result transmitted reference range : 4.26 - 5.52 10*6/?L. The reference range was not used to interpret this result as normal/abnormal . HGB (test code = 15.7 g/dL 12.2-16.4 718-7) HCT (test code = 45.7 % 38.4-49.3 4544-3) MCV (test code = 88.1 fL 81.7-95.6 787-2) MCH (test code = 30.3 pg 26.1-32.7 785-6) MCHC (test code = 34.4 g/dL 31.2-35 786-4) RDW-SD (test code = 40.0 fL 38.5-51.6 46497-4) RDW-CV (test code = 12.2 % 12.1-15.4 788-0) PLT (test code = See_Comment L [Automated 777-3) message] The sy stem which generated this result transmitted reference range : 150 - 328 10*3/ ?L. The reference r puneet was not used to interpret this result as normal/abnormal . MPV (test code = 12.0 fL 9.8-13 46155-4) IPF % (test code = 6.1 % 1.2-10.7 Platelet count 6644868529) measured by fluorescence method. NRBC/100 WBC (test See_Comment [Automat ed code = 1949311323) message] The system which generated this result transmitted reference range : 0.0 - 10.0 /100 WBCs. The refer ence range was not u sed to interpret th is result as normal/abnormal . NRBC x10^3 (test code <0.01 See_Comment [Auto mated = 8449846238) message] The s ystem which generated this result transmitted reference range : 10*3/?L. The reference range was not used to interpret this result as normal/abnormal . GRAN MAT (NEUT) % 77.8 % (test code = 770-8) IMM GRAN % (test code 0.20 % = 6324695450) LYMPH % (test code = 12.7 % 736-9) MONO % (test code = 9.3 % 5905-5) EOS % (test code = 0.0 % 713-8) BASO % (test code = 0.0 % 706-2) GRAN MAT x10^3(ANC) 4.29 10*3/uL 1.99-6.95 (test code = 6303746887) IMM GRAN x10^3 (test <0.03 0-0.06 code = 7309677492) LYMPH x10^3 (test code 0.70 10*3/uL 1.09-3.23 L = 731-0) MONO x10^3 (test code 0.51 10*3/uL 0.36-1.02 = 742-7) EOS x10^3 (test code = <0.03 0.06-0.53 L 711-2) BASO x10^3 (test code <0.03 0.01-0.09 = 704-7) Lab Interpretation Abnormal (test code = 29507-1) [facility] [id number] 19:17:00 Test Item Value Reference Range Interpretation Comments TROPONIN I (test 0.018 ng/mL See_Comment [Automated code = 9200962576) message] The system which generated this result transmitted reference range : <=0.034. The reference range was not used to interpret this result as normal/abnormal . NETTIE (test code = Equal or Less than NETTIE) 0.034 ng/ml---Normal ?Note: Cardiac troponin begins to rise 3-4 hours after the onset of ischemia. Repeat in 4-6 hours if the sample was drawn within 3-4 hours of the onset of the symptom and found normal. Between 0.035 and 0.120 ng/mL--- Borderline. Questionable myocardial injury or necrosis ? ?Note: Serial measurement may be necessary to confirm or exclude the diagnosis of myocardial injury or necrosis; Clinical correlation (symptoms, EKGs, imaging studies, and others) required; Repeat in 4-6 hours if clinically indicated. ? Equal or Higher than 0.121 ng/mL---Abnormal. Myocardial Injury or Necrosis Likely ? Biotin has been reported to cause a negative bias, interpret results relative to patient's use of biotin. ? Lab Interpretation Normal (test code = 41393-2) [id number] 19:14:00 Test Item Value Reference Range Interpretation Comments NT-proBNP (test code 182 pg/mL See_Comment H [Autom ated = 5978545015) message] The system which generated this result transmitted reference range : <=125. The reference range was not used to interpret this result as normal/abnormal . NETTIE (test code = NETTIE) Biotin has been reported to cause a negative bias, interpret results relative to patient's use of biotin. Lab Interpretation Abnormal (test code = 99974-0) [facility]. METABOLIC PANEL (99096)2019-12-25 19:06:00 Test Item Value Reference Range Interpretation Comments NA (test code = 137 mmol/L 135-145 5145527701) K (test code = 4.4 mmol/L 3.5-5 6394138733) CL (test code = 99 mmol/L 98-108 3953581242) CO2 TOTAL (test code = 28 mmol/L 23-31 2443099732) AGAP (test code = 2-16 5299785737) BUN (test code = 21 mg/dL 7-23 0985943413) GLUCOSE (test code = 190 mg/dL 70-110 H 4101719692) CREATININE (test code = 1.28 mg/dL 0.6-1.25 H 2896875878) TOTAL BILI (test code = 0.7 mg/dL 0.1-1.8 1727488870) CALCIUM (test code = 9.0 mg/dL 8.6-10.6 9126456593) T PROTEIN (test code = 6.9 g/dL 6.3-8.2 7586949951) ALBUMIN (test code = 4.0 g/dL 3.5-5 6212759600) ALK PHOS (test code = 105 U/L 34-122 0874734159) ALTv (test code = 41 U/L 5-50 1742-6) AST(SGOT) (test code = 42 U/L 13-40 H 0802730610) eGFR Calculation mL/min/1.73m2 (Non-) (test code = 8010700725) eGFR Calculation mL/min/1.73m2 () (test code = 4122488128) NETTIE (test code = NETTIE) Association of Glomerular Filtration Rate (GFR) and Staging of Kidney Disease* + --+ --+ ------+| GFR (mL/min/1.73 m2) ?| With Kidney Damage ?| ?Without Kidney Damage+ --------+ --------+ +| ?>90 ?| ?Stage one ?| ? Normal ?+ ---+ ---+ -------+| ?60-89 ?| ?Stage two ?| ? Decreased GFR ? + --+ --+ ------+| ?30-59 ?| ?Stage three ?| ? Stage three ? + --+ --+ ------+| ?15-29 ?| ?Stage four ? | ? Stage four ?+ ---+ ---+ -------+| ?<15 (or dialysis) ? ?| ?Stage five ? | ? Stage five ?+ ---+ ---+ -------+ *Each stage assumes the associated GFR level has been in effect for at least three months. ?Stages 1 to 5, with or without kidney disease, indicate chronic kidney disease. Notes: Determination of stages one and two (with eGFR >59mL/min/1.73 m2) requires estimation of kidney damage for at least three months as defined by structural or functional abnormalities of the kidney, manifested by either:Pathological abnormalities or Markers of kidney damage (including abnormalities in the composition of the blood or urine or abnormalities in imaging tests). Lab Interpretation Abnormal (test code = 31160-3) [facility] TexasLipase [id number] 19:05:00 Test Item Value Reference Range Interpretation Comments LIPASE (test code = 4111190390) 232 U/L 0-220 H Lab Interpretation (test code = Abnormal 22169-9) [facility]COVID[facility] (ID NOW RAPID TESTING)2019-12-25 19:02:00 Test Item Value Reference Range Interpretation Comments SARS-CoV-2 Rapid ID NOW Positive Not Detected A (test code = 16334-2) NETTIE (test code = NETTIE) ID NOW COVID-19 Assay is an isothermal nucleic acid amplification test intended for the qualitative detection of nucleic acid from SARS-CoV-2 viral RNA in nasopharyngeal (RETAIL SELLING SPECIALIST) specimens. It is used under Emergency Use Authorization (EUA) by FDA. The limit of detection (LOD) of the assay is 125 Genome Equivalents/mL. A positive result is indicative of the presence of SARS-CoV-2 RNA. ?Clinical correlation with patient history and other diagnostic information is necessary to determine patient infection status. A negative (Not Detected) result does not preclude SARS-CoV-2 infection. In patients with clinical symptoms and other tests that are consistent with SARS-CoV-2 infection, negative results should be treated as presumptive negative and a new specimen should be tested with alternative PCR molecular test. Invalid: Please collect a new specimen for repeat patient testing if clinically indicated. Lab Interpretation Abnormal (test code = 10745-6) [facility] (RESULTS)2019-12-15 14:16:22 Test Item Value Reference Range Interpretation Comments FVC Actual (test code = 3994) 2.70 L FEV1 Actual (test code = 3993) 1.85 L FEV1/FVC Actual (test code = 3995) 69 % [facility] TexasCT CHEST PULMONARY [id number] 18:48:50Impression: 1. ?No evidence of pulmonary embolism. No evidence of an acute infiltrate,pleural effusion, pneumothorax. 2. ?Bilateral (right worse than left) multifocal pleural thickening andcalcifications with underlying linear atelectasis. No suspicious lungnodules or masses are seen. 3. 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 Coronaryartery calcifications and stents are seen.Exam: CT CHEST PULMONARY ANGIOGRAM Clinical History: Shortness of breath PE suspected, low pretest prob Hx ofL empyema s/p vats Comparison: None Findings: The lower neck is unremarkable and the thyroid shows retrosternal extensionof the left lobe. No supraclavicular, mediastinal, hilar, subcarinal, oraxillary lymphadenopathy seen. Adequate opacification of pulmonary artery and its branches. No evidence offilling defects are seen to suggest presence of acute pulmonary embolism.The large vessels arewithin normal limits. The cardiac chambers areunremarkable. No evidence of pleural or pericardial eff usion is seen. The airways are patent. No suspicious lung nodules or masses are seen.There is pleural thickening and calcifications with underlying multifocallinear atelectasis seen in both lungs (right worse than left). The visualized bones show mild degenerative changes and no suspicious focallesions. Metallic wires from internal fixation of multiple ribs are seen inthe left chest wall (5:123-209).The visualized upper abdomen is withinnormal limits. [facility], Radiant Results Inft User - 10/29/2019 1:49 PM CDTExam: CT CHEST PULMONARY ANGIOGRAMClinical History: Shortness of breath PE suspected, low pretest prob Hx ofL empyema s/p vats Comparison: NoneFindings: The lower neck is unremarkable and thethyroid shows retrosternal extensionof the left lobe. No supraclavicular, mediastinal, hilar, subcarinal, oraxillary lymphadenopathy seen.Adequate opacification of pulmonary artery and its branches. Noevidence offilling defects are seen to suggest presence of acute pulmonary embolism.The large vessels are within normal limits. The cardiac chambers areunremarkable. No evidence of pleural or pericardial effusion is seen.The airways are patent. No suspicious lung nodules or masses are seen.There is pleural thickening and calcifications with underlying multifocallinear atelectasis seen in both lungs (right worse than left).The visualized bones show mild degenerative changes and no suspicious focallesions. Metallic wires from internal fixation of multiple ribs are seen inthe left chest wall (5:123-209). The visualized upper abdomen is withinnormal limits.IMPRESSIONImpression: 1. No evidence of pulmonary embolism. No evidence of an acute infiltrate,pleural effusion, pneumothorax.2. Bilateral (right worse than left) multifocal pleural thickening andcalcifications with underlying linear atelectasis. No suspicious lungnodules or masses are seen.3. Enlarged left lobe of the thyroid with retrosternal extension. Coronaryartery calcifications and stents are seen.[facility] Texas[facility] 2019-10-29 13:22:00 Test Item Value Reference Range Interpretation Comments TROPONIN I (test 0.016 ng/mL See_Comment [Automated code = 4164887276) message] The system which generated this result transmitted reference range : <=0.034. The reference range was not used to interpret this result as normal/abnormal . NETTIE (test code = Equal or Less than NETTIE) 0.034 ng/ml---Normal ?Note: Cardiac troponin begins to rise 3-4 hours after the onset of ischemia. Repeat in 4-6 hours if the sample was drawn within 3-4 hours of the onset of the symptom and found normal. Between 0.035 and 0.120 ng/mL--- Borderline. Questionable myocardial injury or necrosis ? ?Note: Serial measurement may be necessary to confirm or exclude the diagnosis of myocardial injury or necrosis; Clinical correlation (symptoms, EKGs, imaging studies, and others) required; Repeat in 4-6 hours if clinically indicated. ? Equal or Higher than 0.121 ng/mL---Abnormal. Myocardial Injury or Necrosis Likely ? Biotin has been reported to cause a negative bias, interpret results relative to patient's use of biotin. ? Lab Interpretation Normal (test code = 64843-4) [facility] TexasN-TERMINAL [id number] 13:19:00 Test Item Value Reference Range Interpretation Comments NT-proBNP (test code 44 pg/mL See_Comment [Autom ated = 7010250690) message] The system which generated this result transmitted reference range : <=125. The reference range was not used to interpret this result as normal/abnormal . NETTIE (test code = NETTIE) Biotin has been reported to cause a negative bias, interpret results relative to patient's use of biotin. Lab Interpretation Normal (test code = 18707-1) [facility] TexasBasi Metabolic Panel (NA, K, CL, CO2, GLUCOSE, BUN, CREATININE, CA)2019-10-29 09:17:00 Test Item Value Reference Range Interpretation Comments NA (test code = 136 mmol/L 135-145 0474930277) K (test code = 4.1 mmol/L 3.5-5 4567189561) CL (test code = 105 mmol/L 98-108 7961990802) CO2 TOTAL (test code = 28 mmol/L 23-31 5379059152) AGAP (test code = 2-16 0991298229) BUN (test code = 20 mg/dL 7-23 8781916260) GLUCOSE (test code = 137 mg/dL 70-110 H 6038419028) CREATININE (test code = 1.10 mg/dL 0.6-1.25 9102650838) CALCIUM (test code = 8.9 mg/dL 8.6-10.6 8940257812) eGFR Calculation mL/min/1.73m2 (Non-) (test code = 2119209087) eGFR Calculation mL/min/1.73m2 () (test code = 3022066155) NETTIE (test code = NETTIE) Association of Glomerular Filtration Rate (GFR) and Staging of Kidney Disease* + --+ --+ ------+| GFR (mL/min/1.73 m2) ?| With Kidney Damage ?| ?Without Kidney Damage+ --------+ --------+ +| ?>90 ?| ?Stage one ?| ? Normal ?+ ---+ ---+ -------+| ?60-89 ?| ?Stage two ?| ? Decreased GFR ? + --+ --+ ------+| ?30-59 ?| ?Stage three ?| ? Stage three ? + --+ --+ ------+| ?15-29 ?| ?Stage four ? | ? Stage four ?+ ---+ ---+ -------+| ?<15 (or dialysis) ? ?| ?Stage five ? | ? Stage five ?+ ---+ ---+ -------+ *Each stage assumes the associated GFR level has been in effect for at least three months. ?Stages 1 to 5, with or without kidney disease, indicate chronic kidney disease. Notes: Determination of stages one and two (with eGFR >59mL/min/1.73 m2) requires estimation of kidney damage for at least three months as defined by structural or functional abnormalities of the kidney, manifested by either:Pathological abnormalities or Markers of kidney damage (including abnormalities in the composition of the blood or urine or abnormalities in imaging tests). Lab Interpretation Abnormal (test code = 48687-4) [facility] with [id number] 09:16:00 Test Item Value Reference Range Interpretation Comments WBC (test code = See_Comment [Automated 9520-2) message] The sy stem which generated this result transmitted reference range : 4.20 - 10.70 10*3/?L. The reference range was not used to interpret this result as normal/abnormal . RBC (test code = See_Comment [Automated 037-8) message] The sy stem which generated this result transmitted reference range : 4.26 - 5.52 10*6/?L. The reference range was not used to interpret this result as normal/abnormal . HGB (test code = 13.5 g/dL 12.2-16.4 718-7) HCT (test code = 40.6 % 38.4-49.3 4544-3) MCV (test code = 91.9 fL 81.7-95.6 787-2) MCH (test code = 30.5 pg 26.1-32.7 785-6) MCHC (test code = 33.3 g/dL 31.2-35 786-4) RDW-SD (test code = 45.1 fL 38.5-51.6 07234-3) RDW-CV (test code = 13.2 % 12.1-15.4 788-0) PLT (test code = See_Comment L [Automated 777-3) message] The sy stem which generated this result transmitted reference range : 150 - 328 10*3/ ?L. The reference r puneet was not used to interpret this result as normal/abnormal . MPV (test code = 12.1 fL 9.8-13 83280-8) NRBC/100 WBC (test See_Comment [Automat ed code = 0260282705) message] The system which generated this result transmitted reference range : 0.0 - 10.0 /100 WBCs. The refer ence range was not u sed to interpret th is result as normal/abnormal . NRBC x10^3 (test code <0.01 See_Comment [Auto mated = 1218296802) message] The s ystem which generated this result transmitted reference range : 10*3/?L. The reference range was not used to interpret this result as normal/abnormal . GRAN MAT (NEUT) % 56.3 % (test code = 770-8) IMM GRAN % (test code 0.20 % = 8231461149) LYMPH % (test code = 27.2 % 736-9) MONO % (test code = 9.6 % 5905-5) EOS % (test code = 5.9 % 713-8) BASO % (test code = 0.8 % 706-2) GRAN MAT x10^3(ANC) 3.71 10*3/uL 1.99-6.95 (test code = 5837630997) IMM GRAN x10^3 (test <0.03 0-0.06 code = 1657591023) LYMPH x10^3 (test code 1.79 10*3/uL 1.09-3.23 = 731-0) MONO x10^3 (test code 0.63 10*3/uL 0.36-1.02 = 742-7) EOS x10^3 (test code = 0.39 10*3/uL 0.06-0.53 711-2) BASO x10^3 (test code 0.05 10*3/uL 0.01-0.09 = 704-7) Lab Interpretation Abnormal (test code = 56650-8) [facility] TexasTROPONIN [id number] 02:11:00 Test Item Value Reference Range Interpretation Comments TROPONIN I (test 0.018 ng/mL See_Comment [Automated code = 7943571138) message] The system which generated this result transmitted reference range : <=0.034. The reference range was not used to interpret this result as normal/abnormal . NETTIE (test code = Equal or Less than NETTIE) 0.034 ng/ml---Normal ?Note: Cardiac troponin begins to rise 3-4 hours after the onset of ischemia. Repeat in 4-6 hours if the sample was drawn within 3-4 hours of the onset of the symptom and found normal. Between 0.035 and 0.120 ng/mL--- Borderline. Questionable myocardial injury or necrosis ? ?Note: Serial measurement may be necessary to confirm or exclude the diagnosis of myocardial injury or necrosis; Clinical correlation (symptoms, EKGs, imaging studies, and others) required; Repeat in 4-6 hours if clinically indicated. ? Equal or Higher than 0.121 ng/mL---Abnormal. Myocardial Injury or Necrosis Likely ? Biotin has been reported to cause a negative bias, interpret results relative to patient's use of biotin. ? Lab Interpretation Normal (test code = 50561-1) [facility]PO[facility] GLU[facility]SE (AUTOMATED)2019-10-29 01:09:00 Test Item Value Reference Range Interpretation Comments POCT GLU (test code = 8943146851) 169 mg/dL 70-110 H Lab Interpretation (test code = Abnormal 39320-9) [facility] TexasTROPONIN [id number] 22:50:00 Test Item Value Reference Range Interpretation Comments TROPONIN I (test 0.016 ng/mL See_Comment [Automated code = 3885167494) message] The system which generated this result transmitted reference range : <=0.034. The reference range was not used to interpret this result as normal/abnormal . NETTIE (test code = Equal or Less than NETTIE) 0.034 ng/ml---Normal ?Note: Cardiac troponin begins to rise 3-4 hours after the onset of ischemia. Repeat in 4-6 hours if the sample was drawn within 3-4 hours of the onset of the symptom and found normal. Between 0.035 and 0.120 ng/mL--- Borderline. Questionable myocardial injury or necrosis ? ?Note: Serial measurement may be necessary to confirm or exclude the diagnosis of myocardial injury or necrosis; Clinical correlation (symptoms, EKGs, imaging studies, and others) required; Repeat in 4-6 hours if clinically indicated. ? Equal or Higher than 0.121 ng/mL---Abnormal. Myocardial Injury or Necrosis Likely ? Biotin has been reported to cause a negative bias, interpret results relative to patient's use of biotin. ? Lab Interpretation Normal (test code = 68541-5) [facility] TexasThyroid Stimulating Hormone (TSH)2019-10-28 22:03:00 Test Item Value Reference Range Interpretation Comments TSH (test code = See_Comment Biotin has been 4992478065) reported to cau se a negative bias, interpret resul ts relative to pat ient's use of biotin. [Automated mess age] The system [employer] generated this result transmitted ref erence range: 0.45 - 4 .70 mIU/L. The refe rence range was not u sed to interpret this result as normal/abnor mal. Lab Interpretation (test Normal code = 00783-6) [facility]PO[facility] GLUCOSE (AUTOMATED)2019-10-28 21:55:00 Test Item Value Reference Range Interpretation Comments POCT GLU (test code = 6552662132) 149 mg/dL 70-110 H Lab Interpretation (test code = Abnormal 17152-6) [facility] TexasGLYCOSYLATED HEMOGLOBIN (A1C)2019-10-28 20:10:00 Test Item Value Reference Range Interpretation Comments HGB A1C (test code = 6.9 % 4-6 H 4548-4) NETTIE (test code = NETTIE) %A1C (NGSP) Interpretation (ADA)4.8-5.6 ? ? Normal or (Non-Diabetic Range)5.7-6.4 ? ? Increased Risk (Pre-Diabetic)>6.5 ?Diabetes Indicated Lab Interpretation Abnormal (test code = 47188-6) [facility] TexasLIPID PANEL (79135)(TOTAL CHOLESTEROL, TRIGLYCERIDES, HDL)2019-10-28 20:02:00 Test Item Value Reference Range Interpretation Comments CHOL (test code = 210 mg/dL 120-200 H 7397576824) HDL (test code = 46 mg/dL >40 0963422818) HDLC RATIO (test code = See_Comment [Au tomated message] 8279050795) The system [employer] generated this result transmit nannette reference range : <=5.0. The refe rence range was not u sed to interpret th is result as normal/abnormal . TRIG (test code = 179 mg/dL 30-170 H 1453759123) LDL CHOL (test code = 128 mg/dL See_Comment [Auto mated message] 35708-8) The system [employer] generated this result transmit nannette reference range : <=160. The refe rence range was not u sed to interpret th is result as normal/abnormal . VLDL (test code = 36 mg/dL 5-60 6037391713) Lab Interpretation (test Abnormal code = 47852-4) [facility] (ID NOW RAPID TESTING)2019-10-28 19:19:00 Test Item Value Reference Range Interpretation Comments SARS-CoV-2 Rapid ID NOW Not Detected Not Detected (test code = 50046-9) NETTIE (test code = NETTIE) ID NOW COVID-19 Assay is an isothermal nucleic acid amplification test intended for the qualitative detection of nucleic acid from SARS-CoV-2 viral RNA in nasopharyngeal (RETAIL SELLING SPECIALIST) specimens. It is used under Emergency Use Authorization (EUA) by FDA. The limit of detection (LOD) of the assay is 125 Genome Equivalents/mL. A positive result is indicative of the presence of SARS-CoV-2 RNA. ?Clinical correlation with patient history and other diagnostic information is necessary to determine patient infection status. A negative (Not Detected) result does not preclude SARS-CoV-2 infection. In patients with clinical symptoms and other tests that are consistent with SARS-CoV-2 infection, negative results should be treated as presumptive negative and a new specimen should be tested with alternative PCR molecular test. Invalid: Please collect a new specimen for repeat patient testing if clinically indicated. Lab Interpretation Normal (test code = 52312-8) [facility] 1 [id number] 18:39:22 Chronic emphysematous changes. Suspected trace pleural effusions or pleural thickening. Preliminary Report Dictated by Resident: Hussein Oro MD., have reviewed thisstudy and agree with theabove report.XR CHEST 1 VW Comparison: None available History: sob Technique: Frontal radiograph Findings: The lungs are hyperinflated with biapical lucencies and flattening of thediaphragm. Blunting of the costophrenic angles may represent pleuralthickening or small pleural effusions. Surgical changes are noted in theleft hemithorax. No ?focal consolidation or pneumothorax is identified. The cardiomediastinal silhouette is normal in size. No acute osseous abnormality is present. [facility], Radiant Results Inft User - 10/28/2019 1:40 PM CDTXR CHEST 1 VWComparison: None availableHistory: sob Technique: Frontal radiographFindings:The lungs are hyperinflated with biapical lucencies and flattening of thediaphragm. Blunting of the costophrenic angles may represent pleuralthickening or small pleural effusions. Surgical changes are noted in theleft hemithorax. No focal consolidation or pneumothorax is identified. The cardiomediastinal silhouette is normal in size. No acute osseous abnormality is present.IMPRESSIONChronic emphysematous changes.Suspected trace pleural effusions or pleural thickening.Preliminary Report Dictated by Resident: Johanna A KohlnhoferI, Hussein Meyers Kathuria, MD., have reviewed this study and agree with theabove report.[facility] 2019-10-28 18:15:00 Test Item Value Reference Range Interpretation Comments TROPONIN I (test 0.028 ng/mL See_Comment [Automated code = 3831938643) message] The system which generated this result transmitted reference range : <=0.034. The reference range was not used to interpret this result as normal/abnormal . NETTIE (test code = Equal or Less than NETTIE) 0.034 ng/ml---Normal ?Note: Cardiac troponin begins to rise 3-4 hours after the onset of ischemia. Repeat in 4-6 hours if the sample was drawn within 3-4 hours of the onset of the symptom and found normal. Between 0.035 and 0.120 ng/mL--- Borderline. Questionable myocardial injury or necrosis ? ?Note: Serial measurement may be necessary to confirm or exclude the diagnosis of myocardial injury or necrosis; Clinical correlation (symptoms, EKGs, imaging studies, and others) required; Repeat in 4-6 hours if clinically indicated. ? Equal or Higher than 0.121 ng/mL---Abnormal. Myocardial Injury or Necrosis Likely ? Biotin has been reported to cause a negative bias, interpret results relative to patient's use of biotin. ? Lab Interpretation Normal (test code = 40581-7) [facility] [id number] 18:12:00 Test Item Value Reference Range Interpretation Comments NT-proBNP (test code 54 pg/mL See_Comment [Autom ated = 4158474625) message] The system which generated this result transmitted reference range : <=125. The reference range was not used to interpret this result as normal/abnormal . NETTIE (test code = NETTIE) Biotin has been reported to cause a negative bias, interpret results relative to patient's use of biotin. Lab Interpretation Normal (test code = 82686-9) [facility]aPTT2020-09-18 18:08:00 Test Item Value Reference Range Interpretation Comments APTT Patient (test See_Comment L [Automat ed code = 3173-2) message] The system which generated this result transmitted reference range : 23 - 38 Seconds . The reference range was not used to interpr et this result as normal/abnormal . NETTIE (test code = NETTIE) The [facility] patient population mean normal value for aPTT is 30 seconds. Lab Interpretation Abnormal (test code = 29899-0) [facility] TexasPROTHROMBIN TIME / [id number] 18:07:00 Test Item Value Reference Range Interpretation Comments PROTIME PATIENT (test See_Comment [Auto mated message] code = 5964-2) The system wh ich generated this result transmitted ref erence range: 12.0 - 1 4.7 Seconds. The re ference range was not u sed to interpret this result as normal/abnor mal. INR (test code = 6301-6) Nor mal INR <1.1; Warfarin Therap eutic range 2.0 to 3. 0 or 2.5 to 3.5, dep ending upon the indica tions. Lab Interpretation (test Normal code = 04454-0) [facility] TexasCOMP. METABOLIC PANEL ([id number])2019-10-28 18:04:00 Test Item Value Reference Range Interpretation Comments NA (test code = 137 mmol/L 135-145 4377512216) K (test code = 5.4 mmol/L 3.5-5 H 6357325437) CL (test code = 102 mmol/L 98-108 7088177442) CO2 TOTAL (test code = 25 mmol/L 23-31 4792244950) AGAP (test code = 2-16 6268022707) BUN (test code = 22 mg/dL 7-23 8645339096) GLUCOSE (test code = 206 mg/dL 70-110 H 4996427618) CREATININE (test code = 1.20 mg/dL 0.6-1.25 0098163662) TOTAL BILI (test code = 0.8 mg/dL 0.1-1.8 3564836822) CALCIUM (test code = 10.1 mg/dL 8.6-10.6 3030282228) T PROTEIN (test code = 7.4 g/dL 6.3-8.2 5089772194) ALBUMIN (test code = 4.3 g/dL 3.5-5 7171248182) ALK PHOS (test code = 95 U/L 34-122 0363949553) ALTv (test code = 45 U/L 5-50 1742-6) AST(SGOT) (test code = 35 U/L 13-40 4052694548) eGFR Calculation mL/min/1.73m2 (Non-) (test code = 1837205953) eGFR Calculation mL/min/1.73m2 () (test code = 0920149343) NETTIE (test code = NETTIE) Association of Glomerular Filtration Rate (GFR) and Staging of Kidney Disease* + --+ --+ ------+| GFR (mL/min/1.73 m2) ?| With Kidney Damage ?| ?Without Kidney Damage+ --------+ --------+ +| ?>90 ?| ?Stage one ?| ? Normal ?+ ---+ ---+ -------+| ?60-89 ?| ?Stage two ?| ? Decreased GFR ? + --+ --+ ------+| ?30-59 ?| ?Stage three ?| ? Stage three ? + --+ --+ ------+| ?15-29 ?| ?Stage four ? | ? Stage four ?+ ---+ ---+ -------+| ?<15 (or dialysis) ? ?| ?Stage five ? | ? Stage five ?+ ---+ ---+ -------+ *Each stage assumes the associated GFR level has been in effect for at least three months. ?Stages 1 to 5, with or without kidney disease, indicate chronic kidney disease. Notes: Determination of stages one and two (with eGFR >59mL/min/1.73 m2) requires estimation of kidney damage for at least three months as defined by structural or functional abnormalities of the kidney, manifested by either:Pathological abnormalities or Markers of kidney damage (including abnormalities in the composition of the blood or urine or abnormalities in imaging tests). Lab Interpretation Abnormal (test code = 01222-4) [facility] WITH [id number] 18:04:00 Test Item Value Reference Range Interpretation Comments WBC (test code = See_Comment [Automated 6690-2) message] The sy stem which generated this result transmitted reference range : 4.20 - 10.70 10*3/?L. The reference range was not used to interpret this result as normal/abnormal . RBC (test code = See_Comment [Automated 789-8) message] The sy stem which generated this result transmitted reference range : 4.26 - 5.52 10*6/?L. The reference range was not used to interpret this result as normal/abnormal . HGB (test code = 15.5 g/dL 12.2-16.4 718-7) HCT (test code = 45.6 % 38.4-49.3 4544-3) MCV (test code = 90.8 fL 81.7-95.6 787-2) MCH (test code = 30.9 pg 26.1-32.7 785-6) MCHC (test code = 34.0 g/dL 31.2-35 786-4) RDW-SD (test code = 43.9 fL 38.5-51.6 19514-8) RDW-CV (test code = 13.2 % 12.1-15.4 788-0) PLT (test code = See_Comment L [Automated 777-3) message] The sy stem which generated this result transmitted reference range : 150 - 328 10*3/ ?L. The reference r puneet was not used to interpret this result as normal/abnormal . MPV (test code = 11.7 fL 9.8-13 28430-1) IPF % (test code = 5.2 % 1.2-10.7 Platelet count 4873277334) measured by fluorescence method. NRBC/100 WBC (test See_Comment [Automat ed code = 9637250244) message] The system which generated this result transmitted reference range : 0.0 - 10.0 /100 WBCs. The refer ence range was not u sed to interpret th is result as normal/abnormal . NRBC x10^3 (test code <0.01 See_Comment [Auto mated = 1412982669) message] The s ystem which generated this result transmitted reference range : 10*3/?L. The reference range was not used to interpret this result as normal/abnormal . GRAN MAT (NEUT) % 68.0 % (test code = 770-8) IMM GRAN % (test code 0.30 % = 6462120974) LYMPH % (test code = 20.7 % 736-9) MONO % (test code = 5.8 % 5905-5) EOS % (test code = 4.2 % 713-8) BASO % (test code = 1.0 % 706-2) GRAN MAT x10^3(ANC) 4.08 10*3/uL 1.99-6.95 (test code = 5556396470) IMM GRAN x10^3 (test <0.03 0-0.06 code = 7734262824) LYMPH x10^3 (test code 1.24 10*3/uL 1.09-3.23 = 731-0) MONO x10^3 (test code 0.35 10*3/uL 0.36-1.02 L = 742-7) EOS x10^3 (test code = 0.25 10*3/uL 0.06-0.53 711-2) BASO x10^3 (test code 0.06 10*3/uL 0.01-0.09 = 704-7) Lab Interpretation Abnormal (test code = 49758-1) [facility]2020-09-18 18:04:00 Test Item Value Reference Range Interpretation Comments MAGNESIUM (test code = 4265453890) 1.9 mg/dL 1.7-2.4 Lab Interpretation (test code = Normal 29298-3) [facility] TexasLIPASE, [id number] 18:03:00 Test Item Value Reference Range Interpretation Comments LIPASE (test code = 6797257687) 151 U/L 0-220 Lab Interpretation (test code = Normal 83741-6) [facility]
[2021-01-26] MEDS ORDERED: MORPHINE 4 MG/ML SYR ONE (07:24)
[2021-01-26 07:33] LABS: Basophils % 0.6 % (0-1.3); Hematocrit 43.6 % (39.6-49.0); Lymphocytes % 11.3 % (15.3-44.8); MPV 9.2 fL (7.6-11.3); RBC Red Blood Cell Count 4.89 M/uL (4.33-5.43)
[2021-01-26 07:36] LABS: Protime INR 1.06
[2021-01-26 07:46] LABS: Albumin 3.4 g/dL (3.4-5.0); Bilirubin Direct 0.2 mg/dL (0-0.2); Potassium 4.3 mmol/L (3.5-5.1)
--- NOTE | 2021-01-26 08:11 | RAD REPORT ---
EXAM DESCRIPTION: US - Extremity Venous Uni Ltd - 01/26/2021 7:49 am CLINICAL HISTORY: PAIN Leg swelling and edema. COMPARISON: No comparisons FINDINGS: Right lower extremity venous system was interrogated with Doppler technique. Normal flow, compressibility and augmentation was noted. There is no DVT present. IMPRESSION: No evidence of right lower extremity deep venous thrombosis.
--- NOTE | 2021-01-26 08:20 | RAD REPORT ---
EXAM DESCRIPTION: CTAbdomen Pelvis W Contrast - 01/26/2021 8:12 am CLINICAL HISTORY: Abdominal pain. right groin pain;Abd pain COMPARISON: Abdomen Pelvis W Contrast dated 09/26/2015; CT ABD PELVIS W CONTRAST dated 07/16/2014 TECHNIQUE: Biphasic CT imaging of the abdomen and pelvis was performed with 100 ml non-ionic IV cont rast. All CT scans are performed using dose optimization technique as appropriate and may include automated exposure control or mA/KV adjustment according to patient size. FINDINGS: Linear subsegmental atelectasis in both posterior lung bases, greater on the right. Inferi or right pleural calcifications. Small hiatal hernia. The liver, spleen, pancreas, adrenal glands and kidneys are within normal limits. Benign renal cysts bilaterally. No bowel obstruction, free air, free fluid or abscess. Small fat containing ventral hernia along the midline. The appendix is normal. Moderate stool is present throughout the colon. Colonic diverticulos is is present without diverticulitis. No evidence of significant lymphadenopathy. Moderate lumbar degenerative spondylosis. IMPRESSION: No acute intra-abdominal or pelvic finding.
--- NOTE | 2021-01-26 08:54 | EDPHYS ---
Physician Documentation [facility] Name: Jayro Mcelroy Age: 75 yrs Sex: Male : 1945 Arrival Date: 01/26/2021 Time: 04:21 Bed 11 Private MD: Evelio Murcia V ED Physician Matt Scales HPI: 01/26 06:21 This 75 yrs old Male presents to ER via Ambulatory with complaints of Groin pain. mh7 06:21 The patient presents with pain, that is acute. The complaints affect the Right groin mh7 area. Context: The problem was sustained at an unknown site, resulted from an unknown cause, the patient can fully bear weight, the patient is able to ambulate, with mild difficulty, Problem is a result from a previous injury: No. Onset: The symptoms/episode began/occurred 2 week(s) ago. Modifying factors: The symptoms are alleviated by nothing. the symptoms are aggravated by movement, Touching area. Associated signs and symptoms: Pertinent negatives calf tenderness, fever, nausea, numbness, rash, swelling, tingling, vomiting, warmth, weakness. Treatment prior to arrival includes: prescription medications, hydrocodone, Ran out of medication. Severity of symptoms: At their worst the symptoms were moderate, yesterday, in the emergency department the symptoms are unchanged. Has seen multiple physicians regarding this issue. Historical: - Allergies: 04:40 Naproxen; bb - PMHx: 04:40 Diabetes - NIDDM; Hyperlipidemia; Hypertension; bb - Immunization history:: Adult Immunizations up to date, Client reports having NOT received the Covid vaccine. - Social history:: Smoking status: Patient denies any tobacco usage or history of. ROS: 06:21 Constitutional: Negative for fever, chills, and weight loss, Eyes: Negative for injury, mh7 pain, redness, and discharge, ENT: Negative for injury, pain, and discharge, Neck: Negative for injury, pain, and swelling, Cardiovascular: Negative for chest pain, palpitations, and edema, Respiratory: Negative for shortness of breath, cough, wheezing, and pleuritic chest pain, Abdomen/GI: Negative for abdominal pain, nausea, vomiting, diarrhea, and constipation, Back: Negative for injury and pain, : Negative for injury, bleeding, discharge, and swelling, Skin: Negative for injury, rash, and discoloration, Neuro: Negative for headache, weakness, numbness, tingling, and seizure, Psych: Negative for depression, anxiety, suicide ideation, homicidal ideation, and hallucinations, Allergy/Immunology: Negative for hives, rash, and allergies, Endocrine: Negative for neck swelling, polydipsia, polyuria, polyphagia, and marked weight changes, Hematologic/Lymphatic: Negative for swollen nodes, abnormal bleeding, and unusual bruising. Exam: 06:21 Constitutional: This is a well developed, well nourished patient who is awake, alert, mh7 and in no acute distress. Head/Face: Normocephalic, atraumatic. Eyes: Pupils equal round and reactive to light, extra-ocular motions intact. Lids and lashes normal. Conjunctiva and sclera are non-icteric and not injected. Cornea within normal limits. Periorbital areas with no swelling, redness, or edema. Neck: Trachea midline, no thyromegaly or masses palpated, and no cervical lymphadenopathy. Supple, full range of motion without nuchal rigidity, or vertebral point tenderness. No Meningismus. Chest/axilla: Normal chest wall appearance and motion. Nontender with no deformity. No lesions are appreciated. Cardiovascular: Regular rate and rhythm with a normal S1 and S2. No gallops, murmurs, or rubs. Normal PMI, no JVD. No pulse deficits. Respiratory: Lungs have equal breath sounds bilaterally, clear to auscultation and percussion. No rales, rhonchi or wheezes noted. No increased work of breathing, no retractions or nasal flaring. 06:21 Back: No spinal tenderness. No costovertebral tenderness. Full range of motion. Male : Normal genitalia with no discharge or lesions. 06:21 Skin: Warm, dry with normal turgor. Normal color with no rashes, no lesions, and no evidence of cellulitis. 06:21 Neuro: Awake and alert, GCS 15, oriented to person, place, time, and situation. Cranial nerves II-XII grossly intact. Motor strength 5/5 in all extremities. Sensory grossly intact. Cerebellar exam normal. Normal gait. Psych: Awake, alert, with orientation to person, place and time. Behavior, mood, and affect are within normal limits. 06:21 Abdomen/GI: Inspection: obese Bowel sounds: normal, in all quadrants, Palpation: abdomen is soft and non-tender, in all quadrants, Rectal exam: the exam is deferred, because of patient request, Indicators: McBurney's point is not tender, Julian's sign is negative, Rovsing's sign is negative, Obturator sign is negative, Psoas sign is negative, Liver: no appreciated palpable abnormalities, Hernia: not appreciated. 06:21 Musculoskeletal/extremity: Extremities: noted in the Right groin: tenderness, ROM: intact in all extremities, Circulation is intact in all extremities. Sensation intact. Compartment Syndrome exam of affected extremity: is normal. no numbness, no tingling, no sensation deficit, no palor, no weak pulses, Joints: All joints appear normal with full range of motion. Weight bearing: able to fully bear weight, without difficulty, Tendon exam: unable to examine Vital Signs: 04:38 Weight 139.25 kg (R); Height 6 ft. 4 in. (193.04 cm) (R); Pain 10/10; bb 07:51 BP 156 / 90; Pulse 75; Resp 20; Temp 98.1(O); Pulse Ox 96% on R/A; eb 04:38 Body Mass Index 37.37 (139.25 kg, 193.04 cm) bb MDM: 07:04 Patient medically screened. rn 07:04 ED course: Signed out to me by Dr. Frances, reports nothing obvious on exam, ordered CT rn abdomen and doppler of leg and plan was to dc home if negative.. 08:48 Differential diagnosis: tendonitis, radiculopathy, arthritis, hernia, muscular pain. rn Data reviewed: vital signs, nurses notes, lab test result(s), radiologic studies, CT scan, ultrasound, and as a result, I will discharge patient. Counseling: I had a detailed discussion with the patient and/or guardian regarding: the historical points, exam findings, and any diagnostic results supporting the discharge/admit diagnosis, lab results, radiology results, the need for outpatient follow up, to return to the emergency department if symptoms worsen or persist or if there are any questions or concerns that arise at home. Response to treatment: the patient's symptoms have markedly improved after treatment, and as a result, I will discharge patient. Special discussion: I discussed with the patient/guardian in detail that at this point there is no indication for admission to the hospital. It is understood, however, that if the symptoms persist or worsen the patient needs to return immediately for re-evaluation. ED course: Patient without acute findings in blood/CT scanning/Doppler ultrasound. Was able to evaluate patient after he returned from imaging studies as he has been out of the department for a while. Patient states he came here to try to get an MRI. Patient states multiple ER visits recently with multiple CAT scans and imaging without diagnosis. Has been told multiple diagnoses but ultimately told needed an MRI, has MRI scheduled for 6 weeks from now, came last night thinking that he could get an MRI in the ER. No obvious diagnosis on exam or imaging. Patient with good pulses and no discoloration or signs of infection. Patient more tender along the medial right proximal thigh without any masses. Will DC home with steroids for possibility of nerve problem.. 01/26 06:45 Order name: Basic Metabolic Panel; Complete Time: 21:26 7 01/26 06:45 Order name: CBC with Diff; Complete Time: 08:30 7 01/26 06:45 Order name: Hepatic Function; Complete Time: 21:26 mh7 01/26 06:45 Order name: Lipase; Complete Time: 21:26 7 01/26 06:45 Order name: Protime (+inr) [facility] 01/26 06:45 Order name: Ptt, Activated [facility] 01/26 06:46 Order name: Protime (+INR); Complete Time: 08:30 EDMS 01/26 06:46 Order name: PTT, Activated Partial Thromb; Complete Time: 08:30 EDMS 01/26 06:58 Order name: CT Abd/Pelvis - IV Contrast Only; Complete Time: 08:30 mh7 01/26 06:58 Order name: US Extremity Venous Unilateral Ltd; Complete Time: 08:30 mh7 Administered Medications: 07:29 Not Given (Pt has IV. OK to give IV per Dr. Horner): morphine 4 mg IM once; RASS on ss ADMIN: Combtv4, Very Agttd3, Agttd2, Rstlss1, AlertClm0, Drwsy-1, Lt Sdtn-2, Mod Sdtn-3, Dp Sdtn-4, UnArsble-5 07:30 Drug: morphine 4 mg Route: IVP; Site: left antecubital; ss 08:34 Follow up: Response: No adverse reaction; Pain is decreased 08:56 Drug: Decadron - Dexamethasone 10 mg Route: IVP; Site: left antecubital; ss 09:08 Follow up: Response: No adverse reaction; Medication administered at discharge. Disposition Summary: 01/26/21 08:54 Discharge Ordered Location: Home rn Problem: an ongoing problem rn Symptoms: have improved rn Condition: Stable rn Diagnosis - Pain in right leg rn Followup: rn - With: Private Physician - When: As needed - Reason: Recheck today's complaints, Re-evaluation by your physician Discharge Instructions: - Discharge Summary Sheet rn - Pain Without a Known Cause rn Forms: - Medication Reconciliation Form rn - Thank You Letter rn - Antibiotic lead burner - Prescription Opioid Use rn Prescriptions: - Medrol (Flakito) 4 mg Oral Tablets, Dose Pack - take 1 tablet by ORAL route as directed - follow package instructions; 1 rn packet; Refills: 0, Product Selection Permitted Signatures: Dispatcher [employer] Alana Villanueva RN RN Matt Owens MD MD rn Smirch, Shelby, RN RN ss Sonido Frances MD MD mh7 Corrections: (The following items were deleted from the chart) 06:54 06:45 IV Saline Lock ordered. [facility] ulises 06:54 06:45 Labs collected and sent ordered. [facility] ulises 06:54 06:45 Urine Dipstick-Ancillary ordered. [facility]
--- NOTE | 2021-01-26 08:54 | ER ---
Nurse's Notes [facility] Name: Jayro Mcelroy Age: 75 yrs Sex: Male : 1945 Arrival Date: 01/26/2021 Time: 04:21 Bed 11 Private MD: Evelio Murcia V Diagnosis: Pain in right leg Presentation: 01/26 04:38 Chief complaint: Patient states: [facility] he bb was diagnosed with sciatic nerve pain but now the pain is getting worse if he sits down he can't get back up. Coronavirus screen: At this time, the client does not indicate any symptoms associated with coronavirus-19. Ebola Screen: No symptoms or risks identified at this time. 04:38 Method Of Arrival: Ambulatory bb 04:38 Initial Sepsis Screen: Does the patient meet any 2 criteria? No. Patient's initial bb sepsis screen is negative. Does the patient have a suspected source of infection? No. Patient's initial sepsis screen is negative. Risk Assessment: Do you want to hurt yourself or someone else? Patient reports no desire to harm self or others. Onset of symptoms was January 22, 2021. 04:38 Acuity: NAUN 3 bb Triage Assessment: 04:40 General: Appears in no apparent distress. uncomfortable, Behavior is appropriate for bb age, anxious. Pain: Complains of pain in right groin pain Pain currently is 10 out of 10 on a pain scale. Neuro: Level of Consciousness is awake, alert, obeys commands, Oriented to person, place, time, situation. Cardiovascular: Capillary refill < 3 seconds Patient's skin is warm and dry. Respiratory: Respiratory effort is unlabored, Respiratory pattern is regular. GI: No signs and/or symptoms were reported involving the gastrointestinal system. Derm: Skin is pink, warm \T\ dry. Musculoskeletal: Circulation, motion, and sensation intact. Historical: - Allergies: 04:40 Naproxen; bb - PMHx: 04:40 Diabetes - NIDDM; Hyperlipidemia; Hypertension; bb - Immunization history:: Adult Immunizations up to date, Client reports having NOT received the Covid vaccine. - Social history:: Smoking status: Patient denies any tobacco usage or history of. Screenin:53 Abuse screen: Denies threats or abuse. Nutritional screening: No deficits noted. bb Tuberculosis screening: No symptoms or risk factors identified. Fall Risk None identified. Assessment: 05:10 Reassessment: No changes from previously documented assessment. Patient is alert, bb oriented x 3, equal unlabored respirations, skin warm/dry/pink. see triage assessment. 06:52 Reassessment: Patient is alert, oriented x 3, equal unlabored respirations, skin bb warm/dry/pink. pt states he has appts with 2 doctors he just wants the pain to go away. Dr Frances notified new orders received pt medicated see APR. 08:28 Reassessment: Patient appears in no apparent distress at this time. Patient and/or ss family updated on plan of care and expected duration. Pain level reassessed. Patient is alert, oriented x 3, equal unlabored respirations, skin warm/dry/pink. 08:34 Reassessment: Patient appears in no apparent distress at this time. Dr. Scales at ss bedside discussing plan of care with patient. Vital Signs: 04:38 Weight 139.25 kg (R); Height 6 ft. 4 in. (193.04 cm) (R); Pain 10/10; bb 07:51 BP 156 / 90; Pulse 75; Resp 20; Temp 98.1(O); Pulse Ox 96% on R/A; eb 04:38 Body Mass Index 37.37 (139.25 kg, 193.04 cm) bb ED Course: 04:21 Patient arrived in ED. es 04:21 Evelio Murcia MD is Private Physician. es 04:40 Triage completed. bb 04:40 Arm band placed on Patient placed in an exam room. bb 05:07 Sonido Frances MD is Attending Physician. [facility] 06:52 Alana Hernandez RN is Primary Nurse. bb 06:53 Patient has correct armband on for positive identification. Call light in reach. bb 07:04 Attending Physician role handed off by Sonido Frances MD rn 07:04 Matt Scales MD is Attending Physician. rn 07:22 Inserted saline lock: 22 gauge in left antecubital area, using aseptic technique. Blood ss collected. 07:48 US Extremity Venous Unilateral Ltd In Process Unspecified. EDMS 08:12 CT Abd/Pelvis - IV Contrast Only In Process Unspecified. EDMS 09:08 No provider procedures requiring assistance completed. IV discontinued, intact, ss bleeding controlled, No redness/swelling at site. Pressure dressing applied. Administered Medications: 07:29 Not Given (Pt has IV. OK to give IV per Dr. Horner): morphine 4 mg IM once; RASS on ss ADMIN: Combtv4, Very Agttd3, Agttd2, Rstlss1, AlertClm0, Drwsy-1, Lt Sdtn-2, Mod Sdtn-3, Dp Sdtn-4, UnArsble-5 07:30 Drug: morphine 4 mg Route: IVP; Site: left antecubital; ss 08:34 Follow up: Response: No adverse reaction; Pain is decreased ss 08:56 Drug: Decadron - Dexamethasone 10 mg Route: IVP; Site: left antecubital; ss 09:08 Follow up: Response: No adverse reaction; Medication administered at discharge. Outcome: 08:54 Discharge ordered by . rn 09:08 Discharged to home ambulatory. 09:08 Condition: good 09:08 Discharge instructions given to patient, Instructed on discharge instructions, follow up and referral plans. medication usage, Demonstrated understanding of instructions, follow-up care, medications, Prescriptions given X 1. 09:09 Patient left the ED. Signatures: Dispatcher [employer] Cristal Palacio Brenda, Matt Anguiano RN, MD MD rn Smirch, Shelby, RN RN ss Botello, Elizabeth eb Holmes, Maurice, MD MD [id number]
[2021-01-26] MEDS ORDERED: dexAMETHasone 10 MG/ML VIAL ONE (08:55)
[2021-01-26 09:16] VITALS: BP 156/90; TEMP 98.1; O2SAT 96
[2021-01-26 09:24] LABS: Bilirubin Total 0.6 mg/dL (0.2-1.0)
== END 2021-01-26 09:09 | disposition home or self-care (01) ==
LOC: ER 04:18
DX: M79.604 Pain in right leg (principal); I10 Essential (primary) hypertension; Z88.6 Allergy status to analgesic agent
CPT/HCPCS: 85025; 80048; 36415; 85610; 82565; 80076; 85730; 83690; 74177; 93971; 96375; 96374; 99284; Q9967; J1100

== ENCOUNTER 2022-07-08 18:04 | Emergency (ER) | payer OTHER ==
--- OUTSIDE RECORDS SUMMARY | 2022-07-08 18:07 | XMS REPORT | Continuity of Care Document ---
:1945 Author Organization [facility] t Address [address] [place] [address] [address] [place] [address] Care Team Providers Name Role Phone VALDEMAR GABRIELLA Primary Care Physician Unavailable SHER Attending Clinician Unavailable Doctor Unassigned, Rosa Sanchez Attending Clinician Unavailable Eddie Puente MD Attending Clinician EDDIE PUENTE Attending Clinician Unavailable EDDIE PUENTE Attending Clinician Unavailable MAGGIE VANN Attending Clinician Unavailable Maggie Vann DO Attending Clinician LESLEE SHARMA Attending Clinician Unavailable LESLEE SHARMA Attending Clinician Unavailable Leslee Sharma DO Attending Clinician Keagan Stubbs RN Attending Clinician Unavailable Tamra Chan Attending Clinician Howard Mcduffie DO Attending Clinician [phone] [facility] Attending Clinician Unavailable Benjamin Guzman Attending Clinician Nurse, [facility] Attending Clinician Unavailable BENJAMIN CLINTON Attending Clinician Unavailable RANDY QUINONEZ Attending Clinician Unavailable Only, Adc Test Attending Clinician Unavailable Carl Torres MD Attending Clinician Evangelina Song DO Attending Clinician Andi Benavides MD Attending Clinician SHER Admitting Clinician Unavailable MAGGIE VANN Admitting Clinician Unavailable Howard Mcduffie DO Admitting Clinician [phone] Andi Bneavides MD Admitting Clinician Payers Payer Name Policy Type Policy Number Effective Date Expiration Date Zafar samuels MEDICARE PART A [id number] 2011 \T\ B 00:00:00 RHYS JEROME [id number] 2013 00:00:00 Problems Condition Condition Condition Status Onset Resolution Last Treating Co mments Source Name Details Category Date Date Treatment Clinician Date GI bleed GI bleed Disease Active 2020- Unive rs 1-15 ity of 00:00: [place] 00 Medical Branch CEE CEE Disease Active 2020-0 Univers (dyspnea (dyspnea 9-18 ity of on on 00:00: [place] exertion) exertion) 00 Medi tyra Branch Coronary Coronary Disease Active 2020-0 Unive rs artery artery 9-18 ity of disease disease 00:00: [place] involving involving 00 Medi tyra [place] 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 Essential Essential Disease Active 2020-0 Uni vers hypertensi hypertensi 9-18 it y of on on 00:00: [place] 00 Medical Branch Dyslipidem Dyslipidem Disease Active 2020-0 U nivers ia ia 9-18 ity of 00:00: [place] 00 Medical Branch Dizzy Dizzy Disease Active 2020-0 Univers spells spells 9-18 ity of 00:00: [place] 00 Medical Branch Atypical Atypical Disease Active 2020-0 Unive rs chest pain chest pain 9-18 it y of 00:00: [place] 00 Medical Branch Contusion Contusion Diagnosis Active [facility] ommon of left of left [facility] knee, knee, - [facility] subsequent subsequent [facility] Prepatella Prepatella Diagnosis Active Common r bursitis r bursitis Sp darrius of left of left - [facility] knee knee [facility] Pain, Pain, Diagnosis Active Common joint, joint, [facility] knee, left knee, left - [facility] Allergies, Adverse Reactions, Alerts Allergy Allergy Status [...] Branch NAPROXEN DRUG Active Hives Univers INGREDI 09-12 ity of 00:00: [place] 00 Medical Branch Cortison Adverse Active Info Not Commo n e Reaction Available [facility] Naproxen Adverse Active Info Not Commo n Reaction Available [facility] Social History Social Habit Start Date Stop Date Quantity Comments Source Exposure to Not sure [facility] SARS-CoV-2 [facility] (event) [place] Alcohol intake 2021-03-08 2021-03-08 Ex-drinker [facility] 00:00:00 00:00:00 (finding) [facility] Tobacco use and 2019-10-28 2019-10-28 Never used Universit y of exposure 00:00:00 00:00:00 [facility] Sex Ass[birth year] Universit y of 00:00:00 00:00:00 [facility] Smoking Status Start Date Stop Date Source Former smoker 2019-10-28 00:00:00 2019-10-28 00:00:00 Universi ty of [facility] Medications Ordered Filled Start Stop Current Ordering Indication Dosage Frequency Signature Comments Components Source Medication Medication Date Date Medication? Clinician (SIG) Name Name nystatin 2020-02 Yes [id number] Apply to Univers 100,000 2-02 affected ity of unit/gram 00:00: area(s) 3 Sven as ointment 00 (three) Medical times [place] daily. nystatin 2020-02 Yes [id number] Apply to Univers 100,000 2-02 affected ity of unit/gram 00:00: area(s) 3 Sven as ointment 00 (three) Medical times Branch daily. OXcarbazepi 2019-02 Yes Take by Uni vers ne 600 mg 1-16 mouth. ity of Tb24 16:48: [place] [address] Medical Branch atorvastati 2019-02 Yes 40mg Take 40 mg Univers n 40 mg 1-16 by mouth ity of tablet 16:48: at [place] [address] bedtime. Medical Branch clopidogrel 2019-02 Yes 75mg Take 75 mg Univers 75 mg 1-16 by mouth ity of tablet 16:48: daily. [place] [address] Medical Branch buPROPion 2019- Yes 300mg Take 300 Uni vers XL 150 mg 1-16 mg by ity of 24 hr 16:48: mouth [place] tablet 48 daily. Medical Branch losartan 50 2019-02 Yes 50mg Take 50 mg Univers mg tablet 1-16 by mouth ity of 16:48: daily. [place] [address] Medical Branch metoprolol 2019-02 Yes 100mg Take 100 Un marivel succinate 1-16 mg by ity of 100 mg CSpX 16:48: mouth [place] 48 daily. Medical Branch dutasteride 2019-02 Yes .5mg Take 0.5 Un marivel 0.5 mg 1-16 mg by ity of capsule 16:48: mouth [place] 48 daily. Medical Branch tamsulosin 2019-02 Yes Take by Univ ers 0.4 mg 24 1-16 mouth 2 ity of hr capsule 16:48: (two) [place] 48 times Medical daily. Branch OXcarbazepi 2019-02 Yes Take by Uni vers ne 600 mg 1-16 mouth. ity of Tb24 16:48: [place] [address] Medical Branch atorvastati 2019-02 Yes 40mg Take 40 mg Univers n 40 mg 1-16 by mouth ity of tablet 16:48: at [place] [address] bedtime. Medical Branch clopidogrel 2019-02 Yes 75mg Take 75 mg Univers 75 mg 1-16 by mouth ity of tablet 16:48: daily. [place] [address] Medical Branch buPROPion 2019-02 Yes 300mg Take 300 Uni vers XL 150 mg 1-16 mg by ity of 24 hr 16:48: mouth [place] tablet 48 daily. Medical Branch losartan 50 2019-02 Yes 50mg Take 50 mg Univers mg tablet 1-16 by mouth ity of 16:48: daily. [place] [address] Medical Branch metoprolol 2019-02 Yes 100mg Take 100 Un marivel succinate 1-16 mg by ity of 100 mg CSpX 16:48: mouth [place] 48 daily. Medical Branch dutasteride 2019- Yes .5mg Take 0.5 Un marivel 0.5 mg 1-16 mg by ity of capsule 16:48: mouth [place] 48 daily. Medical Branch tamsulosin 2019-02 Yes Take by Univ ers 0.4 mg 24 1-16 mouth 2 ity of hr capsule 16:48: (two) [place] 48 times Medical daily. Branch atorvastati atorvastati 2017-0 Yes Luis 1 tablet Common n n 7-27 M[place]ormick by mouth Spirit 00:00: at bedtime - [facility] 00 [facility] Oxcarbazepi Oxcarbazepi Yes Luis not Common ne ne M[place]ick defined [facility] - [facility] Immunizations Ordered Filled Immunization Date Status Comments Sourc e Immunization Name Name Influenza High Dose 2017-12-08 Completed Unive rsity of 00:00:00 [facility] Influenza High Dose 2017-12-08 Completed Unive rsity of 00:00:00 [facility] Influenza High Dose 2013-11-15 Completed Unive rsity of 00:00:00 [facility] Influenza High Dose 2013-11-15 Completed Unive rsity of 00:00:00 [facility] Influenza Virus 2012-03-30 Completed Universit y of Vaccine 00:00:00 [facility] Influenza Virus 2012-03-30 Completed Universit y of Vaccine 00:00:00 [facility] Pneumococcal 2007-03-09 Completed University o f Polysaccharide, 00:00:00 [place] Med ical PPSV23 (PNEUMOVAX) Branch Pneumococcal 2007-03-09 Completed University o f Polysaccharide, 00:00:00 [place] Med ical PPSV23 (PNEUMOVAX) Branch Vital Signs Vital Name Observation Time Observation Value Comments Source Systolic blood 2021-03-08 16:42:00 151 mm[Hg] Univer sity [facility] pressure [facility] Diastolic blood 2021-03-08 16:42:00 85 mm[facility]Hg[facility] 2021-03-08 16:41:00 90 /min [facility] Body height 2021-03-08 16:41:00 190.5 cm [facility] Body weight 2021-03-08 16:41:00 136.306 kg [facility] BMI 2021-03-08 16:41:00 37.56 kg/m2 [facility] Oxygen saturation 2021-03-08 16:41:00 97 /min [facility] in Arterial blood Medical Br anch by Pulse oximetry Procedures This patient has no known procedures. Encounters Start End Encounter Admission Attending Care Care Encounter Source Date/Time Date/Time Type Type Clinicians Facility Department ID 2021-03-06 Outpatient [facility] [id number] Common 14:19:26 [id number] [facility] 2020-12-[address] [facility] [id number] Univers 05:37:15 ity [facility] 2020-12-[address] [facility] [id number] Univers 18:18:41 ity [facility] 2021-09-10 2021-09-10 Outpatient JUAN_PATTY MDFLEX [facility] 806 [place] 00:00:00 00:00:00 H 0802 da [facility] 2021-03-21 2021-03-21 Orders Doctor VIKTOR [id number] Univers 00:00:00 00:00:00 Only Unassigned, WALTER [id number] ity of Rosa Sanchez [facility] [id number] Sven as [phone] [address] 2021-03-08 2021-03-08 [facility] [id number] Univers 10:40:00 11:14:31 Visit [facility] [id number] ity of [place] [id number] Sven as JOHN?BLEA [phone] [address] MEDICAL OFFICE BUILDING 2021-03-08 2021-03-08 Outpatient EDDIE MILLER [facility] [id number] Univers 10:40:00 11:14:31 EDDIE PUENTE [facility] 2021-03-08 2021-03-08 Outpatient Kell STANLEYCINDIEDDIE LEARY [facility] [id number] Univers 10:40:00 10:40:00 CINDIEDDIE Roman [facility] 2021-03-07 2021-03-07 Telephone Cindi [facility] [id number] Univers 00:00:00 00:00:00 [facility] [id number] [facility] [id number] Sven as JOHN?BLEA [phone] [address] MEDICAL OFFICE BUILDING 2021-03-042021-03-04 Orders Doctor VIKTOR 1.2.840.114 [id number] Univers 00:00:00 00:00:00 Only Unassigned, WALTER [id number] ity of Rosa Sanchez [facility]OSPITAL [id number] Sven as [phone] [address] 2021-02-15 2021-02-15 Telephone [facility] 1.2.840.114 [id number] Univers 00:00:00 00:00:00 [facility] [id number] [facility] [id number] Sven as JOHN?BLEA [phone] [address] OFFICE [facility] 2021-02-04 2021-02-04 Outpatient R EDDIE PUENTE [facility] [id number] Univers 08:40:00 09:22:15 EDDIE PUENTE ity [facility] 2021-02-04 2021-02-04 [facility] 1.2.840.114 [id number] Univers 08:40:00 09:22:15 Visit [facility] [id number] [facility] [id number] Sven as JOHN?BLEA [id number] [address] OFFICE [facility] 2021-01-24 2021-01-24 Telephone [facility] [id number] Univers 00:00:00 00:00:00 [facility] [id number] [facility] [id number] Sven as JOHN?BLEA [phone] [address] OFFICE [facility] 2021-01-24 2021-01-24 Orders Doctor HOANG 1.2.840.114 [id number] Univers 00:00:00 00:00:00 Only Unassigned, WALTER [id number] ity of Rosa Sanchez HOSPITAL [id number] Sven as [phone] [address] 2021-01-10 2021-01-10 Emergency X SINGER [facility] ERT [id number] Univers 09:35:00 13:31:00 MAGGIE ity of [facility] 2021-01-10 2021-01-10 Emergency Vann, [facility] [id number] Univers 09:35:00 13:31:00 Maggie ORELLANA [id number] i ty of [place]2.7.[place] [phone] [facility] 084 Branch 2020-01-27 2020-01-27 Outpatient R LESLEE SHARMA [facility] [id number] Univers 09:20:00 09:20:00 LESLEE SHARMA i ty of [facility] 2020-01-27 2020-01-27 Office Adriana [facility] 1.2.840.114 [id number] Univers 08:58:14 09:18:14 Visit Leslee Orellana [id number] i ty [id number] Profess[place] [phone] Ri dical [facility] 085 [facility] 2020-01-13 2020-01-13 Orders Doctor VIKTOR 1.2.840.114 [id number] Univers 00:00:00 00:00:00 Only Unassigned, WALTER [id number] ity of Rosa Sanchez [facility] [id number] Sven as [id number] [facility] 009 Branch 2019-12-27 2019-12-27 Transition EnocAngel palacios 1.2.840.114 [id number] Univers 00:00:00 00:00:00 of Care Keagan Frazier [id number] ity of [id number] [id number] [facility] 403 Branch 2019-12-25 2019-12-26 Emergency Tamra Sigala 1.2. 840.114 [id number] Univers 12:28:00 16:15:00 Howard Mcduffie 350. [id number] ity of [facility] [id number] Sven as [id number] [facility] 097 Branch 2019-12-25 2019-12-25 Urgent Provider, [facility] 1.2.840.114 [id number] Univers 12:20:00 12:40:00 Care Benjamin Clinton [facility] [id number] ity of [place] [id number] Sven as Professio [id number] [facility] 044 [place] Office [facility] 2019-12-25 2019-12-25 Nurse Nurse, [facility] 1.2 .840.114 [id number] Univers 12:16:13 12:31:13 Visit Benjamin Clinton [facility] [id number] ity of [place] [id number] Sven as Professio [phone] [address] Office [facility] 2019-12-25 2019-12-25 Outpatient R JASMINEATIYARyan, [facility] [id number] Univers 12:20:00 12:20:00 [facility] 2019-12-25 2019-12-25 Outpatient R RODRyan, [facility] [id number] Univers 12:15:00 12:15:00 [facility] 2019-12-15 2019-12-15 Outpatient R QUINONEZ [facility] [id number] Univers 08:00:00 08:00:00 RANDY [facility] 2019-12-15 2019-12-15 Orders ALEXANDRO Sharma [id number] Univers 00:00:00 00:00:00 Only Leslee SHEETS [id number] i ty of [id number] [id number] [facility] 084 [place] 2019-12-12 2019-12-12 Laboratory Only, Adc Test [facility] 1.2.840. 114 [id number] Univers 09:17:28 09:32:28 Only Carl Torres [id number] ity of Leslee Sharma [id number] [facility] [phone] [facility] 353 Branch 2019-12-12 2019-12-12 Outpatient R LESLEE SHARMA [facility] [id number] Univers 09:30:00 09:30:00 LESLEE SHARMA i ty of [facility] 2019-11-25 2019-11-25 Office Adriana [facility] 1.2.840.114 [id number] Univers 08:35:15 09:32:34 Visit Leslee Orellana [id number] i ty [id number] [facility] [phone] Ri dical nal 085 [facility] 2019-11-25 2019-11-25 Outpatient R LESLEE SHARMA [facility] [id number] Univers 08:40:00 08:40:00 LESLEE SHARMA i ty of [facility] 2019-11-25 2019-11-25 Orders Doctor VIKTOR 1.2.840.114 [id number] Univers 00:00:00 00:00:00 Only Unassigned, WALTER [id number] ity of [place] Sanchez [facility] [id number] Sven as [phone] [facility] 009 Branch 2019-10-31 2019-10-31 Transition Angel Stubbs 1.2.840.114 [id number] Univers 00:00:00 00:00:00 of Care Keagan Farmer Frazier [id number] ity of [id number] [id number] [facility] 403 Branch 2019-10-28 2019-10-29 Emergency Evangelina Song [facility] [id number] [id number] Univers 12:30:00 16:00:00 Andi Benavides [id number] ity of [id number] [id number] [facility] 081 Branch 2017-09-04 2017-09-04 Outpatient [facility] [id number] Common 08:30:00 08:30:00 [facility] Ssd Results This patient has no known results.
[2022-07-08 19:42] LABS: Absolute Lymphocytes (CBC) 1.3 K/uL (0.7-4.9); Hematocrit 42.7 % (39.6-49.0); Lymphocytes % 13.5 % (15.3-44.8); MCV 90.1 fL (80-100); MPV 9.7 fL (7.6-11.3); RBC Red Blood Cell Count 4.74 M/uL (4.33-5.43)
--- NOTE | 2022-07-08 19:50 | RAD REPORT ---
EXAM DESCRIPTION: Estevan Single View07/08/2022 7:43 pm CLINICAL HISTORY: Chest pain COMPARISON: 2019 FINDINGS: The lungs appear clear of acute infiltrate. The heart is normal size. Postsurgical changes involve left chest Mild chronic opacities left lung base IMPRESSION: No acute abnormalities displayed
[2022-07-08] MEDS ORDERED: HYDROMORPHONE HCL 1 MG/ML INJ ONE ×2 (20:01→22:47)
[2022-07-08 20:03] LABS: Potassium 4.7 mEq/L (3.5-5.1); Troponin High Sensitivity 16.2 pg/mL (<58.9)
[2022-07-08] MEDS ORDERED: BACITRACIN OINTMENT 14 GM TUBE TOP ONE (20:06)
[2022-07-08 20:22] LABS: Protime INR 1.03
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
[2022-07-08] MEDS ORDERED: TETANUS & DIPHTHERIA TOX,ADULT 0.5 ML VIAL ONE (22:58)
[2022-07-08 23:25] VITALS: TEMP 98.2
[2022-07-08 23:27] VITALS: O2SAT 99
[2022-07-08 23:28] VITALS: BP 148/78
--- NOTE | 2022-07-09 07:07 | EKG ---
Test Date: 2022-07-08 Test Time: 19:17:06 Teenage Program Director: RUPALI MEASUREMENT RESULTS: Intervals: Rate: 75 VT: 182 QRSD: 82 QT: 340 QTc: 379 [place]: P: 53 VT: 182 QRS: 7 T: 93 INTERPRETIVE STATEMENTS: Sinus rhythm with fusion complexes Nonspecific ST and T wave abnormality Abnormal ECG Compared to ECG 04/23/2018 14:11:18 Fusion complex(es) now present ST (T wave) deviation now present Atrial premature complex(es) no longer present Electronically Signed On 07-09-22 07:06:28 CDT by Matthieu Florez
--- NOTE | 2022-07-09 14:37 | EKG ---
Test Date: 2022-07-08 Test Time: 20:45:46 Issue Clerk: RUPALI MEASUREMENT RESULTS: Intervals: Rate: 63 IA: 208 QRSD: 88 QT: 410 QTc: 419 [place]: P: 61 IA: 208 QRS: 5 T: 71 INTERPRETIVE STATEMENTS: Normal sinus rhythm with sinus arrhythmia Normal ECG Compared to ECG 07/08/2022 19:17:06 Fusion complex(es) no longer present ST (T wave) deviation no longer present Electronically Signed On 07-09-22 14:35:52 CDT by Darrell Salgado
== END 2022-07-08 23:08 | disposition home or self-care (01) ==
LOC: ER 18:04
DX: T24.202A Burn of second degree of unspecified site of left lower limb, except ankle and foot, initial encounter (principal); T24.201A Burn of second degree of unspecified site of right lower limb, except ankle and foot, initial encounter; T25.222A Burn of second degree of left foot, initial encounter; T31.0 Burns involving less than 10% of body surface; Z23 Encounter for immunization; Z88.5 Allergy status to narcotic agent
CPT/HCPCS: 93005 ×2; 85025; 80048; 36415; 85610; 85730; 84484; 83880; 71045; 90471; 90714; 96374; 99284; J1170 ×2

== ENCOUNTER 2023-11-24 01:57 | Inpatient (IN) | payer OTHER ==
--- OUTSIDE RECORDS SUMMARY | 2023-11-24 02:00 | XMS REPORT | Continuity of Care Document ---
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 [id number] [facility] 2022-07-16 00:00:00 2022-07-16 00:00:00 Orders Only Doctor Unassigned, Victoria [facility] 1.2.840.114 350.1.13.10 4.2.7.2.686 [id number] [facility] 2022-07-15 00:00:00 2022-07-15 00:00:00 Transition of Care Keagan Stubbs [facility] 1.2.840.114 350.1.13.10 4.2.7.2.686 [id number] [facility] 2022-07-12 16:19:00 2022-07-13 16:05:00 Hospital Encounter Unknown, Attending Burton Norton [facility] 1.2840.114 350.1.13.10 4.2.7.2.686 [id number] [facility] 2022-07-12 13:45:00 2022-07-12 14:01:00 Emergency X BURTON NORTON [facility] ERT [id number] [facility] 2021-09-10 00:00:00 2021-09-10 00:00:00 Outpatient PATEL_NILES H [facility] [id number] [facility] 2021-03-21 00:00:00 2021-03-21 00:00:00 Orders Only Doctor Unassigned, Victoria [facility] 1.2840.114 350.1.13.10 4.2.7.2.686 [id number] [facility] 2021-03-08 10:40:00 2021-03-08 11:14:31 Office Visit Eddie Puente [facility] 1.2.840.114 350.1.13.10 4.2.7.2.686 [id number] [facility] 2021-03-08 10:40:00 2021-03-08 11:14:31 Outpatient EDDIE MILLER HOWARD [facility] [id number] [facility] 2021-03-08 10:40:00 2021-03-08 10:40:00 Outpatient EDDIE MILLER HOWARD [facility] [id number] [facility] 2021-03-07 00:00:00 2021-03-07 00:00:00 [facility] 1.2.840.114 350.1.13.10 4.2.7.2.686 [id number] [facility] 2021-03-04 00:00:00 2021-03-04 00:00:00 Orders Only Doctor Unassigned, Victoria [facility] 1.2.840.114 350.1.13.10 4.2.7.2.686 [id number] [facility] 2021-02-15 00:00:00 2021-02-15 00:00:00 Telephone [facility] 1.2.840.114 350.1.13.10 4.2.7.2.686 [id number] [facility] 2021-02-04 08:40:00 2021-02-04 09:22:15 Outpatient EDDIE MILLER HOWARD [facility] [id number] [facility] 2021-02-04 08:40:00 2021-02-04 09:22:15 Office Visit Eddie Puente [facility] 1.84.114 350.1.13.10 4.2.7.2.686 [id number] [facility] 2021-01-24 00:00:00 2021-01-24 00:00:00 Telephone Eddie Puente [facility] 1..114 350.1.13.10 4.2.7.2.686 [id number] [facility] 2021-01-24 00:00:00 2021-01-24 00:00:00 Orders Only Doctor Unassigned, Victoria [facility] 1..114 350.1.13.10 4.2.7.2.686 [id number] [facility] 2021-01-10 09:35:00 2021-01-10 13:31:00 Emergency X MAGGIE VANN [facility] ERT [id number] [facility] 2021-01-10 09:35:00 2021-01-10 13:31:00 Emergency Maggie Vann [facility] 1.84.114 350.1.13.10 4.2.7.2.686 [id number] [facility] 2020-01-27 09:20:00 2020-01-27 09:20:00 Outpatient R LESLEE SHARMA SHIWAN [facility] [id number] [facility] 2020-01-27 08:58:14 2020-01-27 09:18:14 Office Visit Leslee Sharma [facility]al [facility] 1.84.114 350.1.13.10 4.2.7.2.686 [id number] [facility] 2020-01-13 00:00:00 2020-01-13 00:00:00 Orders Only Doctor Unassigned, Victoria [facility] 1.2840.114 350.1.13.10 4.2.7.2.686 [id number] [facility] 2019-12-27 00:00:00 2019-12-27 00:00:00 Transition of Care Keagan Stubbs [facility] 1.2840.114 350.1.13.10 4.2.7.2.686 [id number] [facility] 2019-12-25 12:28:00 2019-12-26 16:15:00 Emergency [facility] Sigala [facility] 1.284.114 350.1.13.10 4.2.7.2.686 [id number] [facility] 2019-12-25 12:20:00 2019-12-25 12:40:00 Urgent Care Provider, [facility] 1..114 350.1.13.10 4.2.7.2.686 [id number] [facility] 2019-12-25 12:16:13 2019-12-25 12:31:13 Nurse Visit Nurse, [facility] 1..114 350.1.13.10 4.2.7.2.686 [id number] [facility] 2019-12-25 12:20:00 2019-12-25 12:20:00 Outpatient R BENJAMIN TORRES [facility] [id number] [facility] 2019-12-25 12:15:00 2019-12-25 12:15:00 [facility] [id number] [facility] 2019-12-15 08:00:00 2019-12-15 08:00:00 Outpatient R QUINONEZRANDY CHURCH [facility] [id number] [facility] 2019-12-15 00:00:00 2019-12-15 00:00:00 Orders Only Leslee Sharma [facility] 1.114 350.1.13.10 4.2.7.2.686 [id number] [facility] 2019-12-12 09:17:28 2019-12-12 09:32:28 Laboratory Only Only, Adc Test [facility] 1.114 350.1.13.10 4.2.7.2.686 [id number] [facility] 2019-12-12 09:30:00 2019-12-12 09:30:00 Outpatient R LESLEE SHARMA SHIFLJose [facility] [id number] [facility] 2019-11-25 08:35:15 2019-11-25 09:32:34 Office Visit Antoinette Sharmamnjose [facility] Profess[facility] 1.114 350.1.13.10 4.2.7.2.686 [id number] [facility] 2019-11-25 08:40:00 2019-11-25 08:40:00 Out[facility] [id number] [facility] 2019-11-25 00:00:00 2019-11-25 00:00:00 Orders Only Doctor Unassigned, Victoria [facility] 1.114 350.1.13.10 4.2.7.2.686 [id number] [facility] 2019-10-31 00:00:00 2019-10-31 00:00:00 Transition of Care Keagan [address] 1..114 350.1.13.10 4.2.7.2.686 [id number] [facility] 2019-10-28 12:30:00 2019-10-29 16:00:00 Emergency DuncanEvangelina JaylonAndi berger [facility] 1.2.840.114 350.1.13.10 4.2.7.2.686 [id number] [facility] 2017-09-04 08:30:00 2017-09-04 08:30:00 Outpatient [facility] [id number] [facility] Results Test Description Test Time Test Comments Results Result Comments Source XR CHEST 1 VW 15:23:42 EXAM: XR CHEST 1 VW COMPARISON: Chest radiograph performed 12/25/2019 HISTORY: sob FINDINGS: Lungs: The lungs are adequately expanded. Bilateral reticular mid to lowerlung zone opacities has been present and represent multifocal scarring oratelectasis. Bilateral blunting of the costophrenic angles which representthickening of the pleura associated with some pleural plaques, better seenon prior abdominal CT.. Heart/Mediastinum: The cardiac silhouette appears enlarged accounting fortechnique and degree of inspiration. Bones and soft tissues: No osseous abnormality is visualized. Cerclagewires project over the left lateral ribs. [facility] Notes Date/Time Note Provider Source 2023-11-09 12:43:02 Pt given printed and verbal discharge instructions regarding primary HTN and dizziness, encouraged hydration. Pt verbalized understanding of instructions, pt awake alert oriented, resp reg unlabored, skin w/d, color appropriate for race, moves all ext well, pt encouraged to follow up with pcp. Advised to seek medical attention for new/prolonged/worsening of symptoms. Symptoms addressed. No adverse reaction to meds given in ER noted upon discharge. PIV d'cd, dressing to site, catheter intact. Pt leaving amb with steady gait, in no apparent distress. Malia Mccabe RN [facility] 2023-11-09 09:15:00 EKG obtained, pt states he feels anxious, no chest pain [facility] 2023-11-09 09:06:15 Daniel Knott is a 78 year old male c/o had like anxiety attack or something at 0400 woke him up, states chest was burning, went to pain dr who suggested to come here for BP high, pt laughed and stated he had not taken his BP meds, pt wants a check up, states it has nothing to do with not taking his BP meds, has DM took meds T Niki Lofton RN [facility] 2022-08-25 12:30:00 Formatting of this n ote might be different from the original. Images from the original note were not included. BURN CLINIC NOTE: DATE: 08/25/2022 TIME: 1222 - 1307 Pt to burn clinic via ambulatory for follow up of pierson to Right Lower Extremity and Left Lower Extremity. Prior to visit, Pt took none. Pt states their pre pain score is 8; given no pain medication Estimated TBSA: 10-20% TBSA Dressings removed and wounds cleaned with Vashe. Wound/s appear tender/painful and pink and periwound assessment appears pink MD Hogan present. Wounds to RLE dressed in [employer]ym[employer] FMG; covered with 4 x 4's; Pt taught Sun protection/avoidance/care, Wound care instructions, and Taught signs and symptoms of infection Seen by PT/OT. Pt post pain score is 8. Left clinic via ambulatory with family. Pt to follow up PRN Trey Jade RN [facility]
[2023-11-24 02:36] LABS: PT Prothrombin Time 11.4 SECONDS (9.4-12.5); Protime INR 1.02
[2023-11-24 02:39] LABS: Absolute Basophils 0.1 K/uL (0-0.5); Absolute Eosinophils 0.5 K/uL (0-0.5); Absolute Lymphocytes (CBC) 2.1 K/uL (0.7-4.9); Absolute Monocytes 0.8 K/uL (0.1-1.3); Absolute Neutrophil 5.6 K/uL (1.8-8.0); Basophils % 1.1 % (0-1.3); Eosinophils % 5.4 % (0-4.4); Hemoglobin 13.9 g/dL (13.6-17.9); Lymphocytes % 23.2 % (15.3-44.8); MCH 30.6 pg (27.0-35.0); MPV 9.4 fL (7.6-11.3); Neutrophils % 61.3 % (41.7-73.7); Nucleated Red Blood Cells % 0.1 % (0-0); Platelets 153 thou/uL (152-406); RBC Red Blood Cell Count 4.55 M/uL (4.33-5.43); Red Cell Distribution Width 14.7 % (12.1-15.2)
[2023-11-24] MEDS ORDERED: MORPHINE 4 MG/ML SYR ONE ×2 (02:40→04:28)
[2023-11-24] MEDS ORDERED: ASPIRIN 81 MG CHEWABLE TABLET ONE (02:40)
[2023-11-24] MEDS ORDERED: ONDANSETRON 4 MG/2 ML VIAL ONE (02:40)
[2023-11-24] MEDS ORDERED: NA CHLORIDE 0.9% 1,000 ML ONE (02:41)
[2023-11-24] MEDS ORDERED: FAMOTIDINE 20 MG/2 ML VIAL IV ONE (02:41)
[2023-11-24 02:52] LABS: ALT/SGPT 31 U/L (16-61); AST/SGOT 15 U/L (15-37); Albumin 3.7 g/dL (3.4-5.0); Albumin/Globulin Ratio 1.1 (1.1-1.8); Alkaline Phosphatase 117 U/L (45-117); Anion Gap 8.4 mEq/L (5.0-15.0); BUN Blood Urea Nitrogen 34 mg/dL (7-18); Bicarbonate 27 mEq/L (21-32); Bilirubin Total 0.3 mg/dL (0.2-1.0); Globulin 3.5 g/dL (2.3-3.5); Glomerular Filtration Rate 39 ml/min (=/>90); Glucose Level 122 mg/dL (74-106); Lipase 67 U/L (13-75); NT PRO-BNP 39 pg/mL (<450); Potassium 4.4 mEq/L (3.5-5.1); Protein, Total 7.2 g/dL (6.4-8.2); Sodium Level 140 mEq/L (136-145); Troponin High Sensitivity 13.1 pg/mL (<58.9)
[2023-11-24 03:07] LABS: Bilirubin Direct < 0.2 mg/dL (0-0.2); Bilirubin Indirect, Calculated 0.1 mg/dL (0.2-0.8)
--- NOTE | 2023-11-24 04:29 | EDPHYS ---
Physician Documentation [facility] Name: Jayro Mcelroy Age: 78 yrs Sex: Male : 1945 Arrival Date: 11/24/2023 Time: 01:57 Bed 8 Private MD: [place] Physician Clovis Brambila HPI: 11/23 03:13 This 78 yrs old Male presents to ER via Ambulatory with complaints of Chest chun Pain. 03:13 The patient or guardian reports chest pain that is located primarily in the anterior chun chest wall, left. Onset: yesterday. The pain does not radiate. Associated signs and symptoms: Pertinent positives: shortness of breath. The chest pain is described as sharp. Modifying factors: The symptoms are alleviated by remaining still, the symptoms are aggravated by breathing, deep breath. Historical: - Allergies: 02:39 Naproxen; lg3 02:39 Lisinopril; lg3 - Home Meds: 02:39 losartan 50 mg oral tablet [Active]; atorvastatin 40 mg Oral tab 1 tab once daily lg3 [Active]; clopidogrel 75 mg Oral tab 1 tab once daily [Active]; bupropion HCl 300 mg oral Tablet, Extended Release 24 hr [Active]; metoprolol succinate 100 mg oral Tablet, Extended Release 24 hr [Active]; oxcarbazepine 600 mg Oral tab 1 tab TID [Active]; dutasteride 0.5 mg oral capsule [Active]; tamsulosin 0.4 mg oral capsule [Active]; - PMHx: 02:39 Diabetes - NIDDM; Hyperlipidemia; Hypertension; prostate cancer (Hypertension); lg3 - PSHx: 02:39 cardiac stent X5 (Hypertension); abdominal hernia (Hypertension); lg3 - Immunization history:: Adult Immunizations up to date. - Infectious Disease History:: Denies. - Social history:: Smoking status: Patient denies any tobacco usage or history of. Patient/guardian denies using alcohol, street drugs. - Family history:: not pertinent. ROS: 03:13 Constitutional: Negative for fever, chills, and weight loss, Eyes: Negative for injury, chun pain, redness, and discharge, ENT: Negative for injury, pain, and discharge, Neck: Negative for injury, pain, and swelling, Respiratory: Negative for shortness of breath, cough, wheezing, and pleuritic chest pain, Abdomen/GI: Negative for abdominal pain, nausea, vomiting, diarrhea, and constipation, Back: Negative for injury and pain, : Negative for injury, bleeding, discharge, and swelling, MS/Extremity: Negative for injury and deformity, Skin: Negative for injury, rash, and discoloration, Neuro: Negative for headache, weakness, numbness, tingling, and seizure, Psych: Negative for depression, anxiety, suicide ideation, homicidal ideation, and hallucinations, Allergy/Immunology: Negative for hives, rash, and allergies, Endocrine: Negative for neck swelling, polydipsia, polyuria, polyphagia, and marked weight changes, Hematologic/Lymphatic: Negative for swollen nodes, abnormal bleeding, and unusual bruising, 03:13 Cardiovascular: Positive for chest pain, 03:13 Respiratory: Positive for pleurisy, of the anterior aspect of left upper chest, left lateral anterior chest, left lateral posterior chest and left nipple, Exam: 03:13 Constitutional: This is a well developed, well nourished patient who is awake, alert, chun and in no acute distress. Head/Face: Normocephalic, atraumatic. Eyes: Pupils equal round and reactive to light, extra-ocular motions intact. Lids and lashes normal. Conjunctiva and sclera are non-icteric and not injected. Cornea within normal limits. Periorbital areas with no swelling, redness, or edema. ENT: Nares patent. No nasal discharge, no septal abnormalities noted. Tympanic membranes are normal and external auditory canals are clear. Oropharynx with no redness, swelling, or masses, exudates, or evidence of obstruction, uvula midline. Mucous membranes moist. Neck: Trachea midline, no thyromegaly or masses palpated, and no cervical lymphadenopathy. Supple, full range of motion without nuchal rigidity, or vertebral point tenderness. No Meningismus. Chest/axilla: Normal chest wall appearance and motion. Nontender with no deformity. No lesions are appreciated. Cardiovascular: Regular rate and rhythm with a normal S1 and S2. No gallops, murmurs, or rubs. Normal PMI, no JVD. No pulse deficits. Abdomen/GI: Soft, non-tender, with normal bowel sounds. No distension or tympany. No guarding or rebound. No evidence of tenderness throughout. Back: No spinal tenderness. No costovertebral tenderness. Full range of motion. Male : Normal genitalia with no discharge or lesions. Skin: Warm, dry with normal turgor. Normal color with no rashes, no lesions, and no evidence of cellulitis. MS/ Extremity: Pulses equal, no cyanosis. Neurovascular intact. Full, normal range of motion. Neuro: Awake and alert, GCS 15, oriented to person, place, time, and situation. Cranial nerves II-XII grossly intact. Motor strength 5/5 in all extremities. Sensory grossly intact. Cerebellar exam normal. Normal gait. Psych: Awake, alert, with orientation to person, place and time. Behavior, mood, and affect are within normal limits. 03:13 ECG was reviewed by the Attending Physician. 03:13 Respiratory: the patient does not display signs of respiratory distress, Respirations: normal, Breath sounds: decreased breath sounds, that are mild, are heard in the left lower lobe and left posterior lower lobe, Respiratory rate: 75 05:01 ECG was reviewed by the Attending Physician. [facility] Vital Signs: 02:37 BP 179 / 86; Pulse 75; Resp 16 S; Temp 97.9(O); Pulse Ox 98% on R/A; Weight 133.81 kg lg3 (R); Height 6 ft. 4 in. (R); Pain 8/10; 04:44 BP 159 / 73; Pulse 70; Resp 18 S; Pulse Ox 97% on R/A; lg3 06:13 BP 147 / 77; Pulse 68; Resp 17 S; Pulse Ox 98% on R/A; lg3 02:37 Body Mass Index 35.91 (133.81 kg, 193.04 cm) lg3 02:37 Pain Scale: Adult lg3 MDM: 02:03 Medical Screening Exam initiated chun 04:28 Differential diagnosis: abnormal EKG, acute myocardial infarction, acute pericarditis, chun anxiety, chest wall pain, costochondritis, esophagitis, gastritis, pancreatitis, peptic ulcer disease, pericarditis, pneumonia, pulmonary embolus, stable angina, thoracic aortic disection, unstable angina. HEART Score: History: Moderately Suspicious (1), ECG: Non specific repolarization disturbance / LBTB / PM (1), Age: > or = 65 years (2), Risk Factors: > or = 3 Risk factors for atherosclerotic disease (2), [Hypercholesterolemia] [Hypertension] [DM] [+ Family HX] [Obesity] Troponin: < or = 1 x Normal Limit (0). The patient was given aspirin in the Emergency Department. VARINDER Risk Score: 1 - patient's age is greater or equal to 65 years, 1 - Three or more CAD risk factors, 1- Known CAD, 1 - ASA use in past 7 days, 1 - Recent [<24hrs] Severe Angina, TOTAL SCORE = 5. Data reviewed: vital signs, nurses notes, lab test result(s), EKG, radiologic studies, CT scan, plain films. Consideration of Admission/Observation Patient was admitted/placed on observation. Escalation of care including admission/observation considered. I considered the following discharge prescriptions or medication management in the emergency department Medications were administered in the Emergency Department. See MAR. Independent interpretation of the following test(s) in the Emergency Department EKG: See my EKG interpretation above. Historians other than the Patient: pt well informed. 11/23 02:03 Order name: Basic Metabolic Panel; Complete Time: 03:08 chun 11/23 02:03 Order name: CBC with Diff; Complete Time: 03:09 11/23 02:03 Order name: LFT's; Complete Time: 03:08 11/23 02:03 Order name: Magnesium; Complete Time: 03:08 11/23 02:03 Order name: NT PRO-BNP; Complete Time: 03:08 11/23 02:03 Order name: PT-INR; Complete Time: 03:08 11/23 02:03 Order name: Troponin HS; Complete Time: 03:08 11/23 02:03 Order name: Lipase; Complete Time: 03:08 chun 11/23 02:03 Order name: Urinalysis w/ reflexes 11/23 02:03 Order name: XRAY Chest (1 view) chun 11/23 03:09 Order name: CT Chest Abdomen Pelvis W/O Contrast [facility] 11/23 04:26 Order name: EKG; Complete Time: 04:26 11/23 04:35 Order name: CONS Physician Consult [facility]OK 11/23 02:03 Order name: Cardiac monitoring; Complete Time: 02:29 11/23 02:03 Order name: EKG - Nurse/Tech; Complete Time: 02:29 chun 11/23 02:03 Order name: IV Saline Lock; Complete Time: 02:29 11/23 02:03 Order name: Labs collected and sent; Complete Time: : [facility] 11/23 02:03 Order name: O2 Per Protocol; Complete Time: 11/23 02:03 Order name: O2 Sat Monitoring; Complete Time: [facility] 11/23 04:26 Order name: EKG - Nurse/Tech; Complete Time: 04:56 chun EC:13 Rate is 78 beats/min. Rhythm is regular. QRS [place] is Normal. VA interval is normal. QRS chun interval is normal. QT interval is normal. No Q waves. T waves are Normal. No ST changes noted. Clinical impression: NSR w/ Non-specific ST/T Changes and No evidence of ischemia. Interpreted by me. Reviewed by me. 05:01 Rate is 63 beats/min. Rhythm is regular. QRS [place] is Normal. VA interval is prolonged chun at 212 msec. QRS interval is normal. QT interval is normal. No Q waves. No ST changes noted. Clinical impression: Normal ECG, NSR w/ Non-specific ST/T Changes, and No evidence of ischemia. Interpreted by me. Reviewed by me. Administered Medications: 02:45 Drug: Aspirin PO Chewable Tablet 81 mg PO once Route: PO; lg3 04:44 Follow up: Response: No adverse reaction lg3 02:45 Drug: morphine IVP or IV 4 mg IVP once over 4 mins Route: IVP; Infused Over: 4 mins; lg3 Site: right forearm; 04:44 Follow up: Response: No adverse reaction; No change in condition lg3 02:45 Drug: Ondansetron IVP 4 mg IVP once; over 2 minutes Route: IVP; Site: right forearm; lg3 04:44 Follow up: Response: No adverse reaction lg3 02:45 Drug: Famotidine IVP 20 mg IVP once; dilute with 10 mL 0.9% NaCl; give over 2 minutes lg3 Route: IVP; Site: right forearm; 04:44 Follow up: Response: No adverse reaction lg3 02:46 Drug: NS 0.9% IV 1000 ml IV at 125 ml/hr continuous Route: IV; Rate: 125 ml/hr; Site: lg3 right forearm; 04:45 Follow up: Response: No adverse reaction; IV Status: Infusion continued upon admission; lg3 IV Intake: 250ml 04:39 Drug: morphine IVP or IV 4 mg IVP once over 4 mins Route: IVP; Infused Over: 4 mins; lg3 Site: right antecubital; 04:45 Follow up: Response: No adverse reaction; Marked relief of symptoms lg3 04:44 Not Given (Patient Refused): ondansetron 4 mg IVP once; over 2 minutes lg3 05:55 Drug: Enoxaparin Sub-Q 100 mg Sub-Q once Route: Sub-Q; Site: abdomen; lg3 05:55 Follow up: Response: No adverse reaction lg3 Disposition Summary: 11/24/23 04:28 Hospitalization Ordered Notes: Hospitalization Status: Inpatient Admission chun Provider: Evelio Murcia cha Location: Telemetry/MedSurg (Inpatient) chun Condition: Fair chun Problem: new chun Symptoms: have improved chun Bed/Room Type: Standard chun Room Assignment: 228(11/24/23 04:38) vk Diagnosis - Chest pain, unspecified chun - Chest pain on breathing chun - Essential (primary) hypertension chun - Obesity, unspecified chun - Pleural effusion in other conditions classified elsewhere chun - Unspecified kidney failure chun Forms: - Medication Reconciliation Form chnu - SBAR form chun - Leadership Thank You Letter chun Signatures: Dispatcher [employer] EDClovis Florez MD MD cha Able, Lacie RN RN lg3 Isaura Saxena Corrections: (The following items were deleted from the chart) 02:04 02:04 BASIC METABOLIC PANEL+C.LAB.BRZ ordered. EDMS EDMS 02:04 02:04 CBC+H.LAB.BRZ ordered. EDMS EDMS 02:04 02:04 HEPATIC FUNCTION+C.LAB.BRZ ordered. EDMS EDMS 02:04 02:04 MAGNESIUM+C.LAB.BRZ ordered. EDMS EDMS 02:04 02:04 PROBNP+C.LAB.BRZ ordered. EDMS EDMS 02:04 02:04 PROTIME (+INR)+COAG.LAB.BRZ ordered. EDMS EDMS 02:04 02:04 Troponin High Sensitivity+C.LAB.BRZ ordered. EDMS EDMS 02:04 02:04 LIPASE+C.LAB.BRZ ordered. EDMS EDMS 02:04 02:04 Urinalysis+U.LAB.BRZ ordered. EDMS EDMS 02:04 02:04 Chest Single View+RAD.RAD.BRZ ordered. EDMS EDMS 02:42 02:39 PSHx: prostate cancer (Hypertension); lg3 lg3 03:13 02:15 Chest For PE Angio+CT.RAD.BRZ ordered. EDMS EDMS 04:38 04:28 chun vk
--- NOTE | 2023-11-24 04:29 | ER ---
Nurse's Notes [facility] Name: Jayro Mcelroy Age: 78 yrs Sex: Male : 1945 Arrival Date: 11/24/2023 Time: 01:57 Bed 8 Private MD: Diagnosis: Chest pain, unspecified;Chest pain on breathing;Essential (primary) hypertension;Obesity, unspecified;Pleural effusion in other conditions classified elsewhere;Unspecified kidney failure Presentation: 11/23 02:37 Chief complaint: Patient states: CP beginning this afternoon and has not resolved. pain lg3 to left chest and diaphragm region. 09/18 constant. Coronavirus screen: Client denies travel out of the [place] in the last 14 days. At this time, the client does not indicate any symptoms associated with coronavirus-19. Ebola Screen: No symptoms or risks identified at this time. Initial Sepsis Screen: Does the patient meet any 2 criteria? No. Patient's initial sepsis screen is negative. Does the patient have a suspected source of infection? No. Patient's initial sepsis screen is negative. Risk Assessment: Do you want to hurt yourself or someone else? Patient reports no desire to harm self or others. Onset of symptoms was November 23, 2023. 02:37 Method Of Arrival: Ambulatory lg3 02:37 Acuity: NAUN 3 lg3 Triage Assessment: 02:39 General: Appears in no apparent distress. uncomfortable, Behavior is calm, cooperative. lg3 Pain: Complains of pain in diaphragm and left breast. EENT: No deficits noted. No signs and/or symptoms were reported regarding the EENT system. Neuro: No deficits noted. Goldberg Agitation-Sedation Scale (RASS): 0 - Alert and Calm Level of Consciousness is awake, alert, obeys commands, Oriented to person, place, time, situation. Cardiovascular: Reports chest pain, Heart tones S1 S2 present Capillary refill < 3 seconds Clubbing of nail beds is absent JVD is absent Patient's skin is warm and dry. Chest pain is described as mild, quality is heaviness, pressure, is aggravated by breathing. Respiratory: No deficits noted. Reports pain with respiration Airway is patent Respiratory effort is even, unlabored, Respiratory pattern is regular, symmetrical, Breath sounds are clear bilaterally. GI: No deficits noted. No signs and/or symptoms were reported involving the gastrointestinal system. : No deficits noted. No signs and/or symptoms were reported regarding the genitourinary system. Derm: No deficits noted. No signs and/or symptoms reported regarding the dermatologic system. Skin is intact, is healthy with good turgor, Skin is dry, Skin is normal, Skin temperature is warm. Musculoskeletal: No deficits noted. No signs and/or symptoms reported regarding the musculoskeletal system. Circulation, motion, and sensation intact. Range of motion: intact in all extremities. Historical: - Allergies: 02:39 Naproxen; lg3 02:39 Lisinopril; lg3 - Home Meds: 02:39 losartan 50 mg oral tablet [Active]; atorvastatin 40 mg Oral tab 1 tab once daily lg3 [Active]; clopidogrel 75 mg Oral tab 1 tab once daily [Active]; bupropion HCl 300 mg oral Tablet, Extended Release 24 hr [Active]; metoprolol succinate 100 mg oral Tablet, Extended Release 24 hr [Active]; oxcarbazepine 600 mg Oral tab 1 tab TID [Active]; dutasteride 0.5 mg oral capsule [Active]; tamsulosin 0.4 mg oral capsule [Active]; - PMHx: 02:39 Diabetes - NIDDM; Hyperlipidemia; Hypertension; prostate cancer (Hypertension); lg3 - PSHx: 02:39 cardiac stent X5 (Hypertension); abdominal hernia (Hypertension); lg3 - Immunization history:: Adult Immunizations up to date. - Infectious Disease History:: Denies. - Social history:: Smoking status: Patient denies any tobacco usage or history of. Patient/guardian denies using alcohol, street drugs. - Family history:: not pertinent. Screenin:44 [facility] ED Fall Risk Assessment (Adult) History of falling in the last 3 months, lg3 including since admission No falls in past 3 months (0 pts) Confusion or Disorientation No (0 pts) Intoxicated or Sedated No (0 pts) Impaired Gait No (0 pts) Mobility Assist Device Used No (0 pt) Altered Elimination No (0 pt) Score/Fall Risk Level 0 - 2 = Low Risk Oriented to surroundings, Maintained a safe environment, Educated pt \T\ family on fall prevention, incl call for assistance when getting out of bed, Assessed \T\ reinforced patient's understanding of fall precautions. Abuse screen: Denies threats or abuse. Denies injuries from another. Nutritional screening: No deficits noted. Tuberculosis screening: No symptoms or risk factors identified. Assessment: 02:44 General: see triage assessment. Pain: Pain does not radiate. Pain began 1 day ago. lg3 03:49 Reassessment: Patient appears in no apparent distress at this time. No changes from lg3 previously documented assessment. Patient and/or family updated on plan of care and expected duration. Pain level reassessed. Patient is alert, oriented x 3, equal unlabored respirations, skin warm/dry/pink. Patient states symptoms have not improved. Vital Signs: 02:37 BP 179 / 86; Pulse 75; Resp 16 S; Temp 97.9(O); Pulse Ox 98% on R/A; Weight 133.81 kg lg3 (R); Height 6 ft. 4 in. (R); Pain 8/10; 04:44 BP 159 / 73; Pulse 70; Resp 18 S; Pulse Ox 97% on R/A; lg3 06:13 BP 147 / 77; Pulse 68; Resp 17 S; Pulse Ox 98% on R/A; lg3 02:37 Body Mass Index 35.91 (133.81 kg, 193.04 cm) lg3 02:37 Pain Scale: Adult lg3 ED Course: 02:00 Patient arrived in ED. [id number] 02:02 Clovis Brambila MD is Attending Physician. [facility] 02:24 Initial lab(s) drawn, by me, sent to lab. Inserted saline lock: 20 gauge in right ty antecubital area, using aseptic technique. Blood collected. Flushed with 10 mL NS. 02:25 XRAY Chest (1 view) In Process Unspecified. EDMS 02:37 Nolvia Fenton, RN is Primary Nurse. lg3 02:39 Triage completed. lg3 02:39 Arm band placed on right wrist. lg3 02:44 Patient maintains SpO2 saturation greater than 95% on room air. lg3 02:44 Patient has correct armband on for positive identification. Placed in gown. Bed in low lg3 position. Call light in reach. Side rails up X 1. Client placed on continuous cardiac and pulse oximetry monitoring. NIBP monitoring applied. laboratory monitor on. Door closed. Noise minimized. Warm blanket given. Pillow given. 03:41 CT Chest Abdomen Pelvis W/O Contrast In Process Unspecified. EDMS 04:26 Evelio Murcia MD is Hospitalizing Provider. chun 04:56 Urine collected: clean catch specimen, clear, EKG done, by ED staff, reviewed by Clovis Brambila MD. 06:12 No provider procedures requiring assistance completed. Patient admitted, IV remains in lg3 place. Administered Medications: 02:45 Drug: Aspirin PO Chewable Tablet 81 mg PO once Route: PO; lg3 04:44 Follow up: Response: No adverse reaction lg3 02:45 Drug: morphine IVP or IV 4 mg IVP once over 4 mins Route: IVP; Infused Over: 4 mins; lg3 Site: right forearm; 04:44 Follow up: Response: No adverse reaction; No change in condition lg3 02:45 Drug: Ondansetron IVP 4 mg IVP once; over 2 minutes Route: IVP; Site: right forearm; lg3 04:44 Follow up: Response: No adverse reaction lg3 02:45 Drug: Famotidine IVP 20 mg IVP once; dilute with 10 mL 0.9% NaCl; give over 2 minutes lg3 Route: IVP; Site: right forearm; 04:44 Follow up: Response: No adverse reaction lg3 02:46 Drug: NS 0.9% IV 1000 ml IV at 125 ml/hr continuous Route: IV; Rate: 125 ml/hr; Site: lg3 right forearm; 04:45 Follow up: Response: No adverse reaction; IV Status: Infusion continued upon admission; lg3 IV Intake: 250ml 04:39 Drug: morphine IVP or IV 4 mg IVP once over 4 mins Route: IVP; Infused Over: 4 mins; lg3 Site: right antecubital; 04:45 Follow up: Response: No adverse reaction; Marked relief of symptoms lg3 04:44 Not Given (Patient Refused): ondansetron 4 mg IVP once; over 2 minutes lg3 05:55 Drug: Enoxaparin Sub-Q 100 mg Sub-Q once Route: Sub-Q; Site: abdomen; lg3 05:55 Follow up: Response: No adverse reaction lg3 Medication: 06:13 VIS not applicable for this client. lg3 Intake: 04:45 IV: 250ml; Total: 250ml. lg3 Outcome: 04:28 Decision to Hospitalize by Provider. chun 06:12 Admitted to Med/surg accompanied by tech, via stretcher, room 228, lg3 06:12 Condition: stable 06:12 Instructed on the need for admit, Demonstrated understanding of instructions, 06:14 Patient left the ED. lg3 Signatures: Dispatcher [employer] Clovis Da Silva MD MD cha Able, Lacie, RN RN lg3 Johanna [email or web address] Quan Carvalho Corrections: (The following items were deleted from the chart) 02:42 02:39 PSHx: prostate cancer (Hypertension); lg3 lg3
--- NOTE | 2023-11-24 04:55 | RAD REPORT ---
EXAM: XR Chest, 1 View CLINICAL HISTORY: The patient is 78 years old and is Male; CHEST PAIN TECHNIQUE: Frontal view of the chest. COMPARISON: No relevant prior studies available. FINDINGS: Lungs: Prominent interstitial markings. Postsurgical changes overlying the left hemithorax. No consolidation. Pleural space: Blunting of the costophrenic angles suggestive of bilateral pleural effusions. No pneumothorax. Heart: Unremarkable. Mediastinum: Unremarkable. Normal mediastinal contour. Bones/joints: No acute findings. IMPRESSION: 1. Prominent interstitial markings. 2. Blunting of the costophrenic angles suggestive of bilateral pleural effusions. Electronically signed by: Carl Joy MD 11/24/2023 04:04 AM CDT 8 Due to temporary technical issues with the PACS/[employer] reporting system, reports are being elder d by the in-house radiologist without review as a courtesy to ensure prompt reporting the interpreting radiologist is fully responsible for the content of the report. Transcribed Date/Time: 11/24/2023 4:55 AM
[2023-11-24 05:22] LABS: Specific Gravity 1.028 (1.005-1.030); Sqamous Epithelial <5 /HPF (None Seen); Urine Bacteria None Seen /HPF (<20); Urine Bilirubin NEGATIVE (Negative); Urine Blood Negative (Negative); Urine Clarity Clear (Clear); Urine Color Yellow (Yellow); Urine Culture Reflex Order NOT NEEDED; Urine Glucose NEGATIVE (Negative); Urine Ketones NEGATIVE (Negative); Urine Microscopic Reflex YN ORDER UMIC; Urine Mucus 1+ /HPF (None Seen); Urine Nitrite NEGATIVE (Negative); Urine Protein NEGATIVE (Negative); Urine RBC <5 /HPF (None Seen); Urine Urobilinogen Normal (Normal); Urine WBC <5 /HPF (<5); Urine pH 5.5 (5.0-7.0)
--- NOTE | 2023-11-24 05:30 | RAD REPORT ---
PROCEDURE: CT Chest, Abdomen and Pelvis Without Intravenous Contrast CLINICAL INDICATION: The patient is 78 years old and is Male; Chest Pain. TECHNIQUE: Axial computed tomography images of the chest, abdomen and pelvis without intravenous contrast. Sag ittal and coronal reformatted images were created and reviewed. This CT exam was performed using one or more of the following dose reduction techniques: automated exposure control, adjustment of t he mA and/or kV according to patient size, and/or use of iterative reconstruction technique. COMPARISON: XR Chest 11/24/[address] Abdomen Pelvis 01/26/2021. FINDINGS: CHEST: LUNGS: Redemonstrated calcified plaques demonstrated along the right greater than left dependent in ferior pleura, with associated rounded atelectasis in the dependent right lung base, unchanged from prior exam. Bandlike scarring versus atelectasis noted in the subpleural anterior left upper lobe. No additional focal consolidation. No suspicious pulmonary mass or nodule. PLEURAL SPACE: Unremarkable No significant effusion. No pneumothorax. HEART: Mild to moderate aortic valve calcifications. THYROID: Partially visualized thyroid demonstrates an asymmetrically enlarged left thyroid lobe wit h punctate internal calcifications. ABDOMEN: LIVER: Unremarkable GALLBLADDER AND BILE DUCTS: Unremarkable No calcified stones. No ductal dilation. PANCREAS: Unremarkable No ductal dilation. SPLEEN: Unremarkable No splenomegaly. ADRENALS: Unremarkable No mass. KIDNEYS AND URETERS: Multiple low attenuation lesions in the kidneys some of which appear to be due to simple renal cysts while others are too small to characterize. No follow-up is necessary. No obstructing stones. No hydronephrosis. STOMACH AND BOWEL: Colonic diverticulosis without evidence of acute diverticulitis. No obstruction. PELVIS: APPENDIX: No findings to suggest acute appendicitis. BLADDER: Trabeculated appearance of the urinary bladder suggesting chronic outflow obstruction. No stones. REPRODUCTIVE: Ectopic cerclage wire within the soft tissues along the lateral margin of the inferio r tip of the left scapula. The prostate gland is enlarged. Correlation with PSA values may be helpful if not previousl y performed. CHEST, ABDOMEN and PELVIS: INTRAPERITONEAL SPACE: See below. BONES/JOINTS: Multilevel spondylosis with moderate to severe degenerative disc disease at L3-4, L4- 5, and L5-S1. Multiple cerclage wires demonstrated in the posterior and lateral left 7th and 8th ribs. No acute fracture. No subluxation or dislocation. No periosteal reaction. No suspicious lytic or blastic bone lesion. SOFT TISSUES: Small fat-containing right inguinal hernia. Small fat-containing left of midline ventral wall hernias with no internal fat stranding or f luid demonstrated. VASCULATURE: Moderate to severe calcified atherosclerosis of the abdominal aorta without aneurysmal dilatation. Mild calcified atherosclerosis of the thoracic aorta without aneurysmal dilatation. Moderate multivessel coronary artery calcifications. LYMPH NODES: Subtle central mesenteric fat stranding, with multiple slightly prominent but not path ologically enlarged mesenteric lymph nodes. IMPRESSION: 1. Subtle central mesenteric fat stranding, with multiple slightly prominent but not pathologically enlarged mesenteric lymph nodes. Nonspecific in that several etiologies, including sclerosing mesenteritis, enteritis, or lymphoproliferative disease, could have this appearance. This appears onl y slightly increased in conspicuity compared to 2020 reference. Clinical correlation recommended. 2. Otherwise, no acute abnormality of the chest, abdomen, or pelvis. 3. Right greater than left dependent pleural thickening and postsurgical changes of the left latera l chest wall. Historical correlation recommended. 4. Multivessel coronary calcifications and mild aortic valve calcification. 5. Asymmetric enlargement of the partially visualized left thyroid lobe with internal calcification s. Recommend further characterization by nonemergent thyroid ultrasound. 6. Additional chronic findings as above. Electronically signed by: Zeus Caraballo MD 11/24/2023 05:26 AM CDT RP Due to temporary technical issues with the PACS/Not iT reporting system, reports are being elder d by the in-house radiologist without review as a courtesy to ensure prompt reporting the interpreting radiologist is fully responsible for the content of the report. Transcribed Date/Time: 11/24/2023 5:30 AM
[2023-11-24] MEDS ORDERED: ENOXAPARIN 100 MG/ML SYR SQ ONE (05:38)
[2023-11-24] MEDS ORDERED: ACETAMINOPHEN 325 MG TABLET PO PRN (06:48)
[2023-11-24] MEDS: NA CHLORIDE 0.9% 1,000 ML IV SCH ×2 (06:48→10:38)
[2023-11-24] MEDS ORDERED: ONDANSETRON 4 MG/2 ML VIAL IV PRN (06:48)
[2023-11-24] MEDS ORDERED: ENOXAPARIN 100 MG/ML SYR SQ SCH (09:00)
[2023-11-24] MEDS: CLOPIDOGREL 75 MG TABLET PO SCH (10:39)
--- NOTE | 2023-11-24 11:41 | P.CNS ---
Date of Consult: 11/24/23 Chief Complaint: chest pain History of Present Illness: Patient with PMH of CAD multiple PCIs in the past, presented with chest pain, pressure acorss chest, has been going on for few months and getting more frequent, denies any other cardiac symptoms. Allergies naproxen Allergy (Severe, Verified 04/28/18 16:16) Anaphylaxis Home medications list reviewed: Yes Home Medications: Atorvastatin Calcium 40 mg PO DAILY 04/23/18 Clopidogrel Bisulfate [Plavix] 75 mg PO DAILY 04/23/18 OXcarbazepine [Oxcarbazepine] 600 mg PO BID 04/23/18 buPROPion HCL [Bupropion Xl] 300 mg PO DAILY 04/23/18 Dutasteride 0.5 mg PO DAILY 11/24/23 Losartan Potassium 50 mg PO DAILY 11/24/23 Metoprolol Succinate [Toprol Xl] 100 mg PO DAILY 11/24/23 Tamsulosin [Flomax*] 0.4 mg PO DAILY 11/24/23 - Past Medical/Surgical History Diabetic: No -: HTN -: Hyperlipidemia -: NIDDM -: hernia repair -: cardiac stent -: left lobectomy -: Left wrist sx - Social History Smoking Status: Never smoker Alcohol use: No CD- Drugs: No Caffeine use: Yes Review of Systems 10-point ROS is otherwise unremarkable Physical Examination Temp Pulse Resp BP Pulse Ox 97.9 F 68 17 147/77 H 97 11/24/23 10:14 11/24/23 10:19 11/24/23 10:19 11/24/23 10:19 11/24/23 08:00 General: Alert, In no apparent distress HEENT: Atraumatic, PERRLA, Mucous membr. moist/pink, EOMI, Sclerae nonicteric Neck: Supple, 2+ carotid pulse no bruit, No LAD, Without JVD or thyroid abnormality Respiratory: Clear to auscultation bilaterally, Normal air movement Cardiovascular: Regular rate/rhythm, Normal S1 S2 Gastrointestinal: Normal bowel sounds, No tenderness Musculoskeletal: No tenderness Integumentary: No rashes Neurological: Normal gait, Normal speech, Normal tone, Normal affect Lymphatics: No axilla or inguinal lymphadenopathy Laboratory Data (last 24 hrs) 11/24/23 11/24/23 11/24/23 02:22 02:22 02:22 WBC 9.20 Hgb 13.9 Hct 41.0 Plt Count 153 PT 11.4 INR 1.02 Sodium 140 Potassium 4.4 BUN 34 H Creatinine 1.78 H Glucose 122 H Magnesium 2.0 Total Bilirubin 0.3 AST 15 ALT 31 Alkaline Phosphatase 117 Lipase 67 - Problems (1) Chest pain Onset Date: 07/17/14 Current Visit: No Status: Acute Plan: patient with PMH od CAD and PCIs NPO after midnight for coronary angiogram in am continue ASA, Plavix, lipitor. get Echo Qualifiers: (2) HTN (hypertension) Current Visit: Yes Status: Acute Plan: resume patient home medications, he is on Toprol XL and losartan.
[2023-11-24] MEDS: FAMOTIDINE 20 MG/2 ML VIAL IV SCH (12:07)
[2023-11-24] MEDS: ASPIRIN 81 MG CHEWABLE TABLET PO SCH (12:07)
[2023-11-24] MEDS: dexAMETHasone 4 MG/ML VIAL IV SCH (12:07)
[2023-11-24] MEDS: MORPHINE 4 MG/ML SYR IV PRN (12:16)
--- NOTE | 2023-11-24 12:36 | P.SSS ---
Patient History Date of Service: 11/24/23 Reason for admission: chest pain History of Present Illness: TL MAY HAS HIGH PSA FOR A YEAR. HE HAS REFUSED ANY CARE. HE NOW HAS CHEST PAIN THAT IS PLEURITIC IN NATURE. HE BREATHES AND HURTS ALL OVER THE CHEST. THERE IS NO RADIATION. HE HAS HAD CAD WITH STENT BEFORE. Allergies naproxen Allergy (Severe, Verified 04/28/18 16:16) Anaphylaxis Home medications list reviewed: Yes Home Medications: Atorvastatin Calcium 40 mg PO DAILY 04/23/18 Clopidogrel Bisulfate [Plavix] 75 mg PO DAILY 04/23/18 OXcarbazepine [Oxcarbazepine] 600 mg PO BID 04/23/18 buPROPion HCL [Bupropion Xl] 300 mg PO DAILY 04/23/18 Dutasteride 0.5 mg PO DAILY 11/24/23 Losartan Potassium 50 mg PO DAILY 11/24/23 Metoprolol Succinate [Toprol Xl] 100 mg PO DAILY 11/24/23 Tamsulosin [Flomax*] 0.4 mg PO DAILY 11/24/23 - Past Medical/Surgical History Has patient received pneumonia vaccine in the past: No Diabetic: No -: HTN -: Hyperlipidemia -: NIDDM -: hernia repair -: cardiac stent -: left lobectomy -: Left wrist sx - Social History Smoking Status: Never smoker Alcohol use: No CD- Drugs: No Caffeine use: Yes Place of Residence: Home Review of Systems 10-point ROS is otherwise unremarkable General: As per HPI Physical Examination - Vital Signs Temperature: 97.9 F Blood Pressure: 147/77 Pulse: 68 Respirations: 18 Pulse Ox (%): 98 - Physical Exam General: Oriented x3, Moderate distress, Obese HEENT: Atraumatic, PERRLA, Mucous membr. moist/pink, EOMI, Sclerae nonicteric Neck: Supple, 2+ carotid pulse no bruit, No LAD, Without JVD or thyroid abnormality Respiratory: Clear to auscultation bilaterally, Normal air movement Cardiovascular: Regular rate/rhythm, Normal S1 S2 Gastrointestinal: Normal bowel sounds, No tenderness Musculoskeletal: No tenderness Integumentary: No rashes Neurological: Normal gait, Normal speech, Normal strength at 5/5 x4 extr, Normal tone, Normal affect Lymphatics: No axilla or inguinal lymphadenopathy - Studies Laboratory Data (last 24 hrs) 11/24/23 11/24/2311/23/24 02:22 02:22 02:22 WBC 9.20 Hgb 13.9 Hct 41.0 Plt Count 153 PT 11.4 INR 1.02 Sodium 140 Potassium 4.4 BUN 34 H Creatinine 1.78 H Glucose 122 H Magnesium 2.0 Total Bilirubin 0.3 AST 15 ALT 31 Alkaline Phosphatase 117 Lipase 67 - Diagnosis (Problem(s)) (1) Pleuritic chest pain Current Visit: Yes Status: Acute Plan: CHARACTER OF PAIN IS NOT CARDIAC IN ORIGIN HE MAY HAVE PLEURISY, PERICARDITIS OR METS TO CHEST WALL FROM PROSTATE CANCER. CATH IN AM BY DR. MAYES. CHECK BONE SCAN CRP PSA IS NOW IN 50S. (2) CAD (coronary artery disease), [place] coronary artery Current Visit: No Status: Chronic Plan: ABOVE. Qualifiers: [place] vs. transplanted heart: [place] heart (3) Diabetes Current Visit: No Status: Chronic Qualifiers: Diabetes mellitus type: type 2 Diabetes mellitus complication status: with circulatory complication (4) Pleural effusion Current Visit: Yes Status: Acute Plan: NO SIGNS OF CHF THIS CAN BE INFLAMMATORY OR CANCEROUS. WILL WAIT FOR BONE SCAN. - Disposition Disposition: ROUTINE DISCHARGE
[2023-11-24 13:45] LABS: MPV 9.6 fL (7.6-11.3); Platelets 123 thou/uL (152-406)
[2023-11-24] MEDS: OXcarbazepine 150 MG TAB PO SCH (20:29)
[2023-11-25 06:22] LABS: Absolute Eosinophils 0.2 K/uL (0-0.5); Absolute Lymphocytes (CBC) 1.2 K/uL (0.7-4.9); Absolute Monocytes 0.7 K/uL (0.1-1.3); Basophils % 0.4 % (0-1.3); Eosinophils % 1.9 % (0-4.4); Hematocrit 39.8 % (39.6-49.0); Lymphocytes % 11.7 % (15.3-44.8); MCH 32.2 pg (27.0-35.0); MCHC 32.6 g/dL (32.0-36.0); MCV 98.6 fL (80-100); MPV 7.8 fL (7.6-11.3); Nucleated RBC Absolute Count 0.1 (0-0); Nucleated Red Blood Cells % 0.4 % (0-0); Platelets 296 thou/uL (152-406); RBC Red Blood Cell Count 4.04 M/uL (4.33-5.43)
[2023-11-25 06:38] LABS: Anion Gap 9.8 mEq/L (5.0-15.0); Potassium 4.8 mEq/L (3.5-5.1)
--- NOTE | 2023-11-25 07:32 | ECHO ---
HEIGHT: 6 ft 4 in WEIGHT: 295 lb 0 oz DATE OF STUDY: 11/24/[address]: Clovis Brambila MD 2-DIMENSIONAL: YES M.MODE: YES DOPPLER: YES COLOR FLOW: YES TDS: YES PORTABLE: YES DEFINITY: BUBBLE STUDY: DIAGNOSIS: CHEST PAIN CARDIAC HISTORY: CATHERIZATION: YES SURGERY: NO PROSTHETIC VALVE: NO PACEMAKER: NO MEASUREMENTS (cm) DIASTOLIC (NORMALS) SYSTOLIC (NORMALS) IVSd 1.3 (0.6-1.2) LA Diam 2.6 (1.9-4.0) LVEF 60% LVIDd 4.3 (3.5-5.7) LVIDs 3.0 (2.0-3.5) %FS 32% LVPWd 1.2 (0.6-1.2) Ao Diam (2.0-3.7) 2 DIMENSIONAL ASSESSMENT: RIGHT ATRIUM: NORMAL LEFT ATRIUM: NORMAL RIGHT VENTRICLE: NORMAL LEFT VENTRICLE: NORMAL TRICUSPID VALVE: TRACE TRICUSPID REGURGITATION MITRAL VALVE: TRACE MITRAL REGURGITATION PULMONIC VALVE: NORMAL AORTIC VALVE: NORMAL PERICARDIAL EFFUSION: NONE AORTIC ROOT: NORMAL LEFT VENTRICULAR WALL MOTION: NORMAL DOPPLER/COLOR FLOW: GRADE I DIASTOLIC DYSFUNCTION COMMENTS: 1. NORMAL LEFT VENTRICULAR SYSTOLIC FUNCTION, EJECTION FRACTION 60%, NORMAL WALL MOTION 2. GRADE I DIASTOLIC DYSFUNCTION TECHNOLOGIST: RAUDEL MORE
[2023-11-25 07:55] VITALS: BMI 35.9
[2023-11-25] MEDS: NA CHLORIDE 0.9% 500 ML ONE (08:26)
[2023-11-25] MEDS ORDERED: CLOPIDOGREL 75 MG TABLET PO SCH (09:00)
[2023-11-25] MEDS: TAMSULOSIN 0.4 MG SR CAP PO SCH (09:00)
[2023-11-25] MEDS: LOSARTAN POTASSIUM 50 MG TABLET PO SCH (09:00)
[2023-11-25] MEDS: ATORVASTATIN 40 MG TAB PO SCH (09:00)
[2023-11-25] MEDS: METOPROLOL XL 100 MG TAB PO SCH (09:00)
[2023-11-25] MEDS: DUTASTERIDE 0.5 MG GEL CAP PO SCH (09:00)
[2023-11-25] MEDS: ENOXAPARIN 40 MG/0.4 ML SQ SCH (09:00)
[2023-11-25] MEDS: BUPROPION HCL XL 150 MG TAB PO SCH (09:00)
[2023-11-25] MEDS ORDERED: LIDOCAINE 1% 20 ML MDV ONE (11:06)
[2023-11-25] MEDS ORDERED: ATROPINE SULF 1 MG/10 ML SYR IV ONE (11:06)
[2023-11-25] MEDS ORDERED: HEPA 1000U/500MLS 2,000 UNIT/1,000 ML BAG IV ONE (11:06)
[2023-11-25] MEDS ORDERED: HEPARIN 10,000 UNIT/10 ML VIAL IV ONE ×2 (11:06→12:47)
[2023-11-25] MEDS ORDERED: CLOPIDOGREL 75 MG TABLET ONE (11:07)
[2023-11-25] MEDS ORDERED: TICAGRELOR 90 MG TABLET PO ONE (11:07)
[2023-11-25] MEDS ORDERED: HEPARIN 5000 UNIT/ML 1 ML VIAL ONE (11:07)
[2023-11-25] MEDS ORDERED: ASPIRIN 325 MG TAB ONE (11:07)
[2023-11-25] MEDS: MIDAZOLAM HCL 2 MG/2 ML INJ ONE (11:24)
[2023-11-25] MEDS: FENTANYL CITR 100 MCG/2 ML ONE (11:24)
--- NOTE | 2023-11-25 11:24 | RAD REPORT ---
EXAMINATION: Bone Imaging Whole Body CLINICAL INDICATION: Male, 78 years old. [facility] MAIN prostate cancer, mets suspected whole body if you can thoracic cage TECHNIQUE: Whole body anterior and posterior imaging was performed 3 hours after radiopharmaceutical injection. Further spot images of the bilateral ribs were obtained. RADIOPHARMACEUTICAL: 26.6 mCi Tc-99m MDP was administered intravenously. COMPARISON: No prior comparison exams. CT chest 11/24/2023. FINDINGS: SKULL: Unremarkable. SPINE: Degenerative uptake. No concerning osteoblastic lesions. THORAX: Symmetric homogenous physiologic activity bilateral ribs and sternum. ABDOMEN AND PELVIS: No concerning osteoblastic lesions of the osseous pelvis. EXTREMITIES: Degenerative uptake. No concerning osteoblastic lesions. EXTRAOSSEOUS FINDINGS: Normal soft tissue, renal, and bladder activity is identified. IMPRESSION: No scintigraphic pattern to suggest osseous metastatic disease.
--- NOTE | 2023-11-25 15:57 | P.PN ---
Subjective Date of Service: 11/25/23 Chief Complaint: chest pain Subjective: No new changes, No C/O voiced, Tolerating diet, Ambulating, Improving Review of Systems 10-point ROS is otherwise unremarkable Physical Examination - Vital Signs Temperature: 96.9 F Blood Pressure: 121/61 Pulse: 55 Respirations: 18 Pulse Ox (%): 97 - Physical Exam General: Alert, In no apparent distress HEENT: Atraumatic, PERRLA, EOMI Neck: Supple, JVD not distended Respiratory: Clear to auscultation bilaterally, Normal air movement Cardiovascular: Regular rate/rhythm, Normal S1 S2 Gastrointestinal: Normal bowel sounds, No tenderness Musculoskeletal: No tenderness Integumentary: No rashes Neurological: Normal speech, Normal tone, Normal affect Lymphatics: No axilla or inguinal lymphadenopathy - Studies Medications List Reviewed: Yes Assessment And Plan - Current Problems (Diagnosis) (1) Chest pain Onset Date: 07/17/14 Current Visit: No Status: Acute Plan: Coronary angiogram done and that shown mid LAD DIE TURNER, 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 Qualifiers: (2) HTN (hypertension) Current Visit: Yes Status: Acute Plan: resume patient home medications, he is on Toprol XL and losartan.
[2023-11-25] MEDS: TICAGRELOR 90 MG TABLET PO SCH (20:26)
--- NOTE | 2023-11-25 21:20 | P.PN ---
Subjective Date of Service: 11/25/23 Chief Complaint: chest pain I WENT TO SEE HIM AT [facility] AND HE WAS STILL IN PROCEDURE. I WENT TO [facility] SECTION AND HE WAS NOT THERE. 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 PATIENT REFUSED CABG SO HE PUT IN TWO EXTRA STENTS BUT HE COULD NOT DO ANYTHING TO LAD STENT IS THAT IS TOO SMALL. PATIENT WILL GO HOME IN AM. Physical Examination - Vital Signs Temperature: 98.2 F Blood Pressure: 156/79 Pulse: 70 Respirations: 17 Pulse Ox (%): 96 - Studies Medications List Reviewed: Yes Assessment And Plan - Current Problems (Diagnosis) (1) Pleuritic chest pain Current Visit: Yes Status: Acute Plan: CHARACTER OF PAIN IS NOT CARDIAC IN ORIGIN HE MAY HAVE PLEURISY, PERICARDITIS OR METS TO CHEST WALL FROM PROSTATE CANCER. CATH IN AM BY DR. MAYES. CHECK BONE SCAN CRP PSA IS NOW IN 50S. (2) CAD (coronary artery disease), [place] coronary artery Current Visit: No Status: Chronic Plan: ABOVE. Qualifiers: [place] vs. transplanted heart: [place] heart (3) Diabetes Current Visit: No Status: Chronic Qualifiers: Diabetes mellitus type: type 2 Diabetes mellitus complication status: with circulatory complication (4) Pleural effusion Current Visit: Yes Status: Acute Plan: NO SIGNS OF CHF THIS CAN BE INFLAMMATORY OR CANCEROUS. WILL WAIT FOR BONE SCAN.
[2023-11-26 09:02] LABS: Absolute Basophils 0.1 K/uL (0-0.5); Absolute Eosinophils 0.5 K/uL (0-0.5); Absolute Lymphocytes (CBC) 1.7 K/uL (0.7-4.9); Absolute Monocytes 0.9 K/uL (0.1-1.3); Absolute Neutrophil 5.7 K/uL (1.8-8.0); Basophils % 1.3 % (0-1.3); Eosinophils % 5.3 % (0-4.4); Hematocrit 40.5 % (39.6-49.0); Hemoglobin 13.8 g/dL (13.6-17.9); Lymphocytes % 19.6 % (15.3-44.8); MCH 31.1 pg (27.0-35.0); MCHC 34.1 g/dL (32.0-36.0); MCV 91.1 fL (80-100); MPV 9.6 fL (7.6-11.3); Monocytes % 9.7 % (3.3-12.3); Neutrophils % 64.1 % (41.7-73.7); Nucleated Red Blood Cells % 0.1 % (0-0); Platelets 141 thou/uL (152-406); RBC Red Blood Cell Count 4.45 M/uL (4.33-5.43); Red Cell Distribution Width 15.1 % (12.1-15.2)
[2023-11-26] MEDS: ASPIRIN 81 MG CHEWABLE TABLET PO SCH (09:13)
[2023-11-26 09:56] VITALS: O2SAT 98
--- NOTE | 2023-11-26 10:50 | P.PN ---
Subjective Date of Service: 11/26/23 Chief Complaint: chest pain Subjective: No new changes, No C/O voiced, Tolerating diet, Ambulating, Improving Review of Systems 10-point ROS is otherwise unremarkable Physical Examination - Vital Signs Temperature: 97.4 F Blood Pressure: 157/82 Pulse: 55 Respirations: 18 Pulse Ox (%): 98 - Physical Exam General: Alert, In no apparent distress HEENT: Atraumatic, PERRLA, EOMI Neck: Supple, JVD not distended Respiratory: Clear to auscultation bilaterally, Normal air movement Cardiovascular: Regular rate/rhythm, Normal S1 S2 Gastrointestinal: Normal bowel sounds, No tenderness Musculoskeletal: No tenderness Integumentary: No rashes Neurological: Normal speech, Normal tone, Normal affect Lymphatics: No axilla or inguinal lymphadenopathy - Studies Medications List Reviewed: Yes Assessment And Plan - Current Problems (Diagnosis) (1) Chest pain Onset Date: 07/17/14 Current Visit: No Status: Acute Plan: Coronary angiogram done and that shown 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 Qualifiers: (2) HTN (hypertension) Current Visit: Yes Status: Acute Plan: resume patient home medications, he is on Toprol XL and losartan.
--- NOTE | 2023-11-26 11:53 | EKG ---
Test Date: 2023-11-25 Test Time: 10:11:25 Sole Conditioner: SANTINO MEASUREMENT RESULTS: Intervals: Rate: 64 PA: 206 QRSD: 92 QT: 396 QTc: 408 [place]: P: 66 PA: 206 QRS: 3 T: 78 INTERPRETIVE STATEMENTS: Normal sinus rhythm with sinus arrhythmia Normal ECG Compared to ECG 11/24/2023 04:57:56 Atrial premature complex(es) no longer present Ventricular premature complex(es) no longer present First degree AV block no longer present Electronically Signed On 11-26-23 11:51:11 CDT by Pérez Fairchild
--- NOTE | 2023-11-26 11:59 | EKG ---
Test Date: 2023-11-24 Test Time: 02:10:22 Pruner: KARIME MEASUREMENT RESULTS: Intervals: Rate: 78 VT: 208 QRSD: 90 QT: 384 QTc: 437 [place]: P: -1 VT: 208 QRS: 17 T: 95 INTERPRETIVE STATEMENTS: Normal sinus rhythm Low voltage QRS Borderline ECG Compared to ECG 07/08/2022 20:45:46 Low QRS voltage now present Sinus arrhythmia no longer present Electronically Signed On 11-26-23 11:53:56 CDT by Pérez Fairchild
--- NOTE | 2023-11-26 11:59 | EKG ---
Test Date: 2023-11-24 Test Time: 04:57:56 Criminal Researcher: JOHN MEASUREMENT RESULTS: Intervals: Rate: 63 OR: 212 QRSD: 86 QT: 412 QTc: 421 [place]: P: 61 OR: 212 QRS: 7 T: 72 INTERPRETIVE STATEMENTS: Sinus rhythm with 1st degree AV block with occasional premature ventricular complexes and premature atrial complexes Low voltage QRS Borderline ECG Compared to ECG 11/24/2023 02:10:22 Atrial premature complex(es) now present Ventricular premature complex(es) now present First degree AV block now present Electronically Signed On 11-26-23 11:53:49 CDT by Pérez Fairchild
--- NOTE | 2023-11-26 13:05 | P.DS ---
Admission Date: 11/26/23 Discharge Date: 11/26/23 Disposition: ROUTINE DISCHARGE Discharge Condition: SERIOUS Reason for Admission: chest pain - Problems (1) Pleuritic chest pain Current Visit: Yes Status: Acute (2) CAD (coronary artery disease), [place] coronary artery Current Visit: No Status: Chronic Qualifiers: [place] vs. transplanted heart: [place] heart (3) Diabetes Current Visit: No Status: Chronic Qualifiers: Diabetes mellitus type: type 2 Diabetes mellitus complication status: with circulatory complication (4) Pleural effusion Current Visit: Yes Status: Acute Brief History of Present Illness: ARELI KNOTT HAS HIGH PSA FOR A YEAR. HE HAS REFUSED ANY CARE. HE NOW HAS CHEST PAIN THAT IS PLEURITIC IN NATURE. HE BREATHES AND HURTS ALL OVER THE CHEST. THERE IS NO RADIATION. HE HAS HAD CAD WITH STENT BEFORE. Hospital Course: Maria Teresa KNOTT HAS BEEN AN [facility] DI[facility]IC WHO DID NOT WANT ANYTHING DONE FOR HIGH PSA. HIS PSA IS NOW AT 50. HE COMES WITH PLEURITIC CHEST PAIN. HE HAS FEW STENOSED CORONARIES. HE HAS HAD FOUR STENTS FROM BEFORE. DR. CHILDERS COULD PUT IN ON STENT FOR RCA BUT OTHERS WAS TOO NARROWED. MR. KNOTT REFUSED CABG. HE IS STABLE TO GO HOME WITH POOR PROGNOSIS. Vital Signs/Physical Exam: Temp Pulse Resp BP Pulse Ox 97.4 F 55 18 157/82 H 98 11/26/23 10:50 11/26/23 10:50 11/26/23 10:50 11/26/23 10:50 11/26/23 10:50 Laboratory Data at Discharge: WBC 8.90 thou/uL (4.3-10.9) 11/26/23 08:44 Hgb 13.8 g/dL (13.6-17.9) 11/26/23 08:44 Hct 40.5 % (39.6-49.0) 11/26/23 08:44 Plt Count 141 thou/uL (152-406) L D 11/26/23 08:44 PT 11.4 SECONDS (9.4-12.5) 11/24/23 02:22 INR 1.02 11/24/23 02:22 Sodium 139 mEq/L (136-145) 11/25/23 06:00 Potassium 4.8 mEq/L (3.5-5.1) 11/25/23 06:00 BUN 34 mg/dL (7-18) H 11/25/23 06:00 Creatinine 1.21 mg/dL (0.70-1.30) 11/25/23 06:00 Glucose 91 mg/dL (74-106) 11/25/23 06:00 Magnesium 2.0 mg/dL (1.6-2.4) 11/24/23 02:22 Total Bilirubin 0.3 mg/dL (0.2-1.0) 11/24/23 02:22 AST 15 U/L (15-37) 11/24/23 02:22 ALT 31 U/L (16-61) 11/24/23 02:22 Alkaline Phosphatase 117 U/L (45-117) 11/24/23 02:22 Lipase 67 U/L (13-75) 11/24/23 02:22 Home Medications: Atorvastatin Calcium 40 mg PO DAILY 04/23/18 OXcarbazepine [Oxcarbazepine] 600 mg PO BID 04/23/18 buPROPion HCL [Bupropion Xl] 300 mg PO DAILY 04/23/18 Dutasteride 0.5 mg PO DAILY 11/24/23 Losartan Potassium 50 mg PO DAILY 11/24/23 Metoprolol Succinate [Toprol Xl*] 100 mg PO DAILY 11/24/23 Tamsulosin [Flomax*] 0.4 mg PO DAILY 11/24/23 Ticagrelor [Brilinta*] 90 mg PO BID #60 11/26/23 New Medications: Ticagrelor [Brilinta*] 90 mg PO BID #60 Physician Discharge Instructions: PROBLEM: Chest Pain GOAL: Clear understanding of disease process INSTRUCTIONS: Diet: Heart Healthy Activity: As instructed PROBLEM: Chest Pain GOAL: Clear understanding of disease process INSTRUCTIONS: Follow up with Dr Murcia in 1 week as instructed Follow up with Cardiology in 1 week Take Brilinta as directed - Rx given ADD 81mg Daily to medication regimen Return to ER for any emergency Call 2nd floor nurse's station for questions about hospital care. [phone] Diet: Heart Healthy Activity: As tolerated Followup: Evelio Murcia MD [Primary Care Provider] - Pérez Fairchild MD [ACTIVE - CAN ADMIT] -
[2023-11-26 13:24] VITALS: BP 109/71; TEMP 97.6
--- NOTE | 2023-11-26 15:06 | OP ---
Surgeon: Pérez Fairchild Procedures Performed: 1.Left heart catheterization. 2.Selective coronary angiogram. 3.PCI of the left PDA with the Synergy 2.5 x 24 mm drug-eluting stent. 4.Attempted PTCA of the LAD, failed. Complications: None. Estimated Blood Loss: Less than 50 cc. Access: Right radial, closed by TR band. Sedation Time: 50 minutes with 2 of Versed and 50 of fentanyl. Description Of Procedure: After risks, benefits, and alternatives were explained to patient, the pat ient agreed to proceed with procedure and signed informed consent. [facility], prepped and draped in sterile fashion. Time-out was performed. Sedation was administer ed. Next, the right radial access was obtained and [place] 4.0 catheter was advanced over a J-wire to the LV cavity. LVEDP was obtained. Pullback did not show any gradient. Same catheter was used for selective angiogram of the left and right coronary systems. That catheter was later exchanged for an XB LAD 3.5 mm guide. Runthrough wire was passed into the left circ into the LPDA and pre-dilated th e LPDA lesions with an NC 2.5 mm balloon. Next, Synergy 2.5 x 24 mm drug-eluting stent was placed ac ross the lesion and then we directed the Runthrough wire into the LAD, was unable to cross the lesion s. We attempted micro catheters, GuideLiner and Svetlana 1 and Svetlana 2 wires, unable to cross the mid LAD PROTOTYPE FABRICATOR. So we decided to abort the procedure. Final angiogram shows VARINDER-3 flow. Catheter was remove d over a J-wire. Sheath was removed. TR band was applied. Hemostasis was achieved and patient was moved back to Recovery in stable condition. Findings: 1.Left main; proximal stent with diffuse 30% to 40% ISR. 2.LAD; proximal stent patent with diffuse 30% to 40% ISR with mid 100% occluded. Failed attempt to cross the lesion and mid to distal mild luminal irregularities, fills with [id number] collaterals. 3.Diagonal 1, proximal 90% disease and mild luminal irregularities. 4.Left circ, proximal 70% disease, angulated, then mid to distal mild luminal irregularities. OM1, small, mid, mild luminal irregularities. 5.OM2; proximal stent patent with mid 80% disease, small artery. 6.Left PDA, proximal 80% disease, status post PCI with Synergy 2.5 x 24 mm drug-eluting stent. 7.RCA, proximal diffuse 40% to 50% disease and distal 40% disease with mid stent 40% to 50% ISR. 8.RPDA, small, mid, occluded. Assessment And Plan: 1.Significant left PDA disease, status post PCI with 2.5 x 24 mm drug-eluting stent. 2.100% occluded mid LAD PROTOTYPE FABRICATOR segment, unable to cross the lesion despite wire escalations. 3.[id number] left main stent ISR. 4.Significant OM2 disease, small artery, for medical management. Plan: 1.Aspirin 81 mg daily for life. 2.Brilinta 90 mg p.o. b.i.d. for 12 months. 3.Continue aggressive medical treatment for CAD. 4.If patient is still symptomatic, then we will consider outpatient stress test and an attempt for P CI of the LAD PROTOTYPE FABRICATOR groin access. HARISH/TANISHA Voice ID: [id number] Report ID: [id number]
== END 2023-11-26 13:28 | disposition home or self-care (01) | DRG 322 ==
LOC: ER 01:57 → 2ND 04:31 → OBSVTOIN 11-26 08:11
PROVIDERS: ADMIT Internal Medicine; ATTEND Internal Medicine
PROC: 027034Z Dilation of Coronary Artery, One Artery with Drug-eluting Intraluminal Device, Percutaneous Approach (ICD-10-PCS; principal; 2023-11-26)
PROC: 4A023N7 Measurement of Cardiac Sampling and Pressure, Left Heart, Percutaneous Approach (ICD-10-PCS; 2023-11-26)
PROC: B2111ZZ Fluoroscopy of Multiple Coronary Arteries using Low Osmolar Contrast (ICD-10-PCS; 2023-11-26)
DX: R07.89 Other chest pain (principal); E11.9 Type 2 diabetes mellitus without complications; I10 Essential (primary) hypertension; E66.9 Obesity, unspecified; E78.5 Hyperlipidemia, unspecified; I25.10 Atherosclerotic heart disease of native coronary artery without angina pectoris; Z95.5 Presence of coronary angioplasty implant and graft; Z68.35 Body mass index [BMI] 35.0-35.9, adult; Z85.46 Personal history of malignant neoplasm of prostate; Z79.02 Long term (current) use of antithrombotics/antiplatelets; Z79.899 Other long term (current) drug therapy
CPT/HCPCS: 36415; 71045; 71250; 74176; 76937; 78306; 80048; 80076; 81001; 82947; 83690; 83735; 83880; 84484; 85025; 85049; 85347; 85379; 85610; 86140; 93005; 93306; 93458; 96372; 99152; 99153; 99285; A9503; C1725; C1877; C1893; C9600; G0103; G0378; J0461; J1100; J1644; J1650; J2001; J2250; J2405; J3010; J7030; J7040; Q9966

== ENCOUNTER 2024-03-07 12:55 | Emergency (ER) | payer OTHER ==
--- OUTSIDE RECORDS SUMMARY | 2024-03-07 12:58 | XMS REPORT | Continuity of Care Document ---
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 Unassigned, [place] [facility] 1.2.840.114 350.1.13.10 4.2.7.2.686 [id number] [facility] 2022-07-15 00:00:00 2022-07-15 00:00:00 Transition of Care Keagan Stubbs [facility] 1.2.840.114 350.1.13.10 4.2.7.2.686 [id number] [facility] 2022-07-12 16:19:00 2022-07-13 16:05:00 Hospital Encounter Unknown, Attending [facility] 1.2840.114 350.1.13.10 4.2.7.2.686 [id number] [facility] 2022-07-12 13:45:00 2022-07-12 14:01:00 Emergency X [facility] E[facility] [id number] [facility] 2021-09-10 00:00:00 2021-09-10 00:00:00 Outpatient PATEL_NILES H [facility] [id number] [facility] 2021-03-21 00:00:00 2021-03-21 00:00:00 Orders Only Doctor Unassigned, [place] [facility] 1.2840.114 350.1.13.10 4.2.7.2.686 [id number] [facility] 2021-03-08 10:40:00 2021-03-08 11:14:31 Office Visit Eddie Puente [facility] 1.2.840.114 350.1.13.10 4.2.7.2.686 [id number] [facility] 2021-03-08 10:40:00 2021-03-08 11:14:31 Outpatient EDDIE MILLER HOWARD [facility] [id number] [facility] 2021-03-08 10:40:00 2021-03-08 10:40:00 Outpatient DEDIE MILLER HOWARD [facility] [id number] [facility] 2021-03-07 00:00:00 2021-03-07 00:00:00 [facility] 1.2.840.114 350.1.13.10 4.2.7.2.686 [id number] [facility] 2021-03-04 00:00:00 2021-03-04 00:00:00 Orders Only Doctor Unassigned, [place] [facility] 1.2.840.114 350.1.13.10 4.2.7.2.686 [id number] [facility] 2021-02-15 00:00:00 2021-02-15 00:00:00 Telephone [facility] 1.2.840.114 350.1.13.10 4.2.7.2.686 [id number] [facility] 2021-02-04 08:40:00 2021-02-04 09:22:15 Outpatient EDDEI MILLER HOWARD [facility] [id number] [facility] 2021-02-04 08:40:00 2021-02-04 09:22:15 Office Visit Eddie Puente [facility] 1.84.114 350.1.13.10 4.2.7.2.686 [id number] [facility] 2021-01-24 00:00:00 2021-01-24 00:00:00 Telephone Eddie Puente [facility] 1..114 350.1.13.10 4.2.7.2.686 [id number] [facility] 2021-01-24 00:00:00 2021-01-24 00:00:00 Orders Only Doctor Unassigned, [place] [facility] 1..114 350.1.13.10 4.2.7.2.686 [id number] [facility] 2021-01-10 09:35:00 2021-01-10 13:31:00 Emergency X [facility]GIE [facility] ERT [id number] [facility] 2021-01-10 09:35:00 2021-01-10 13:31:00 Emergency Maggie Vann [facility] 1.84.114 350.1.13.10 4.2.7.2.686 [id number] [facility] 2020-01-27 09:20:00 2020-01-27 09:20:00 Outpatient R LESLEE SHARMA SHIWAN [facility] [id number] [facility] 2020-01-27 08:58:14 2020-01-27 09:18:14 Office Visit Leslee Sharma [facility] 1.84.114 350.1.13.10 4.2.7.2.686 [id number] [facility] 2020-01-13 00:00:00 2020-01-13 00:00:00 Orders Only Doctor Unassigned, [place] [facility] 1.2840.114 350.1.13.10 4.2.7.2.686 [id number] [facility] 2019-12-27 00:00:00 2019-12-27 00:00:00 Transition of Care Keagan Stubbs [facility] 1.2840.114 350.1.13.10 4.2.7.2.686 [id number] [facility] 2019-12-25 12:28:00 2019-12-26 16:15:00 Emergency [facility] 1.284.114 350.1.13.10 4.2.7.2.686 [id number] [facility] 2019-12-25 12:20:00 2019-12-25 12:40:00 Urgent Care Provider, [facility] 1..114 350.1.13.10 4.2.7.2.686 [id number] [facility] 2019-12-25 12:16:13 2019-12-25 12:31:13 Nurse Visit Nurse, [facility] 1..114 350.1.13.10 4.2.7.2.686 [id number] [facility] 2019-12-25 12:20:00 2019-12-25 12:20:00 Outpatient R BENJAMIN TORRES [facility] [id number] [facility] 2019-12-25 12:15:00 2019-12-25 12:15:00 [facility] [id number] 2019-12-15 08:00:00 2019-12-15 08:00:00 Outpatient R QUINONEZRANDY CHURCH [facility] [id number] [facility] 2019-12-15 00:00:00 2019-12-15 00:00:00 Orders Only Leslee Sharma [facility] 1.114 350.1.13.10 4.2.7.2.686 [id number] [facility] 2019-12-12 09:17:28 2019-12-12 09:32:28 Laboratory Only Only, Adc Test [facility] 1.114 350.1.13.10 4.2.7.2.686 [id number] [facility] 2019-12-12 09:30:00 2019-12-12 09:30:00 Outpatient R LESLEE SHARMA SHIOHJose [facility] [id number] [facility] 2019-11-25 08:35:15 2019-11-25 09:32:34 Office Visit Antoinette Sharmascjose [facility] Pending sale to [facility] 1.114 350.1.13.10 4.2.7.2.686 [id number] [facility] 2019-11-25 08:40:00 2019-11-25 08:40:00 Outpatient R [facility] [id number] [facility] 2019-11-25 00:00:00 2019-11-25 00:00:00 Orders Only Doctor Unassigned, [place] [facility] 1.114 350.1.13.10 4.2.7.2.686 [id number] [facility] 2019-10-31 00:00:00 2019-10-31 00:00:00 Transition of Care [address]agan [address] 1..114 350.1.13.10 4.2.7.2.686 [id number] [facility] 2019-10-28 12:30:00 2019-10-29 16:00:00 Emergency DuncanEvangelina Laverne IyerAndi berger [facility] 1.2.840.114 350.1.13.10 4.2.7.2.686 [id number] [facility] 2017-09-04 08:30:00 2017-09-04 08:30:00 Outpatient [facility] [id number] [facility] Results Test Description Test Time Test Comments [...] Cerclagewires project over the left lateral ribs. [facility]
--- NOTE | 2024-03-07 14:26 | RAD REPORT ---
EXAMINATION: CT HEAD WITHOUT CONTRAST CT CERVICAL SPINE WITHOUT CONTRAST CLINICAL INDICATION: Male, 78 years old. posterior headache/neck pain TECHNIQUE: Axial CT images from the skull base to the vertex without intravenous contrast. Axial CT i mages through the cervical spine were obtained without intravenous contrast. Sagittal and coronal reformatted images were created from the data set. Coronal and sagittal reformatted images were creat ed from the data set. One or more of the following dose reduction techniques were used: Automated exposure control, adjustment of the mA and/or kV according to patient size, and/or iterative reconstr uction. Unless otherwise specified, incidental findings do not require dedicated imaging follow-up. [id number]. COMPARISON: 07/28/2016 FINDINGS: Head: INTRACRANIAL: No acute intracranial hemorrhage. No hydrocephalus. No mass effect or midline shift. Mi ld chronic small vessel ischemic changes.Mild cerebral atrophy. VASCULATURE: No visualized abnormalities in the arteries or dural venous sinuses. SCALP/SKULL: No significant soft tissue or osseous abnormalities. SINUSES: The visualized paranasal sinuses and mastoid air cells are predominantly clear. Cervical spine: ALIGNMENT: The cervical spine has normal alignment without scoliosis or spondylolisthesis. BONE: Vertebral body heights are maintained. No aggressive osseous lesions. DEGENERATIVE CHANGES: Multilevel cervical spondylosis with varying degrees of neural foraminal narrow ing. This includes severe neural foraminal narrowing bilaterally at C4-5 and on the left at C6-7. No high-grade central spinal stenosis is present. SOFT TISSUE: Multinodular thyroid which is similar to prior exams. IMPRESSION: No acute intracranial abnormality. No acute fracture or traumatic malalignment of the cervical spine.
--- NOTE | 2024-03-07 14:31 | ER ---
Nurse's Notes [facility] Name: Jayro Mcelroy Age: 78 yrs Sex: Male : 1945 Arrival Date: 03/07/2024 Time: 12:55 Bed DX2 Private MD: Diagnosis: Occipital neuralgia Presentation: 03/07 13:09 Chief complaint: Patient states: he has been having neck pain for approx one week, ap3 however it started radiating into his head this morning. patient reports his pain as a 10/10 on the pain scale. patient denies any changes in vision or nausea. Coronavirus screen: At this time, the client does not indicate any symptoms associated with coronavirus-19. Ebola Screen: No symptoms or risks identified at this time. Initial Sepsis Screen: Does the patient meet any 2 criteria? No. Patient's initial sepsis screen is negative. Does the patient have a suspected source of infection? No. Patient's initial sepsis screen is negative. Risk Assessment: Do you want to hurt yourself or someone else? Patient reports no desire to harm self or others. Onset of symptoms was February 29, 2024. 13:09 Method Of Arrival: Ambulatory ap3 13:15 Acute neurological deficit: none identified. ap3 13:15 Acuity: NAUN 3 ap3 Triage Assessment: 13:13 General: Appears uncomfortable, Behavior is calm, cooperative, appropriate for age. ap3 Pain: Complains of pain in neck Pain radiates to scalp Pain currently is 10 out of 10 on a pain scale. Neuro: Level of Consciousness is awake, alert, obeys commands, Oriented to person, place, time, situation. Neuro: Reports headache. Cardiovascular: Patient's skin is warm and dry. Respiratory: Airway is patent Respiratory effort is even, unlabored, Respiratory pattern is regular, symmetrical. Historical: - Allergies: 13:10 Lisinopril; ap3 13:10 Naproxen; ap3 - PMHx: 13:10 Diabetes - NIDDM; Hyperlipidemia; Hypertension; Prostate Cancer (Hypertension); ap3 - PSHx: 13:10 abdominal hernia (en); cardiac stent X5 (en); ap3 - Immunization history:: Client reports having NOT received the Covid vaccine. Flu vaccine is not up to date. - Infectious Disease History:: Denies. - Family history:: not pertinent. - Hospitalizations: : No recent hospitalization is reported. Screenin:14 [facility] ED Fall Risk Assessment (Adult) History of falling in the last 3 months, ap3 including since admission No falls in past 3 months (0 pts) Confusion or Disorientation No (0 pts) Intoxicated or Sedated No (0 pts) Impaired Gait No (0 pts) Mobility Assist Device Used No (0 pt) Altered Elimination No (0 pt) Score/Fall Risk Level 0 - 2 = Low Risk Oriented to surroundings, Maintained a safe environment, Educated pt \T\ family on fall prevention, incl call for assistance when getting out of bed, Assessed \T\ reinforced patient's understanding of fall precautions, Hourly rounding (assess needs \T\ fall precautionary measures) done, Used ambulatory aids as needed (educated on \T\ assisted with), Used gait belt as appropriate. Abuse screen: Denies threats or abuse. Nutritional screening: No deficits noted. Tuberculosis screening: No symptoms or risk factors identified. Assessment: 14:43 General: Appears in no apparent distress. comfortable, Behavior is calm, cooperative. ss Respiratory: Airway is patent Respiratory effort is even, unlabored, Respiratory pattern is regular, symmetrical. Derm: Skin is intact, is healthy with good turgor, Skin is pink, warm \T\ dry. normal. Vital Signs: 13:09 BP 167 / 89; Pulse 73; Resp 17; Temp 97.8; Pulse Ox 100% ; Weight 133.81 kg; Height 6 ap3 ft. 4 in. ; Pain 10/10; 13:09 Body Mass Index 35.91 (133.81 kg, 193.04 cm) ap3 13:09 Pain Scale: Adult ap3 ED Course: 12:59 Patient arrived in ED. ra3 13:08 Matt Scales MD is Attending Physician. rn 13:14 Arm band placed on left wrist. ap3 13:16 Triage completed. ap3 14:10 CT Head C Spine In Process Unspecified. EDMS 14:30 Kristopher Dumont MD is Referral Physician. rn 14:42 Mraiah Willoughby, HELEN is Primary Nurse. ss 14:43 Patient has correct armband on for positive identification. Bed in low position. ss 14:43 No provider procedures requiring assistance completed. Patient did not have IV access ss during this emergency room visit. Administered Medications: No medications were administered Medication: 14:43 VIS not applicable for this client. ss Outcome: 14:30 Discharge ordered by . rn 14:43 Discharged to home ambulatory, ss 14:43 Condition: good 14:43 Discharge instructions given to patient, family, Instructed on discharge instructions, follow up and referral plans. medication usage, Demonstrated understanding of instructions, follow-up care, medications, Prescriptions given X 3, 14:45 Patient left the ED. ss Signatures: Dispatcher [employer] EDMS Matt Scales MD MD rn Blanchard, Shelby, RN RN ss Prokisch, Amanda, RN RN ap3 Maryse Gould ra3
--- NOTE | 2024-03-07 14:31 | EDPHYS ---
Physician Documentation [facility] Name: Jayro Mcelroy Age: 78 yrs Sex: Male : 1945 Arrival Date: 03/07/2024 Time: 12:55 Bed DX2 Private MD: ED Physician Matt Scales HPI: 03/07 13:36 This 78 yrs old Male presents to ER via Ambulatory with complaints of Neck Pain, >24Hrs rn Old. 13:36 The patient or guardian complains of pain. The symptoms are located on the Left rn posterior lateral neck and occipital scalp. Onset: The symptoms/episode began/occurred 1 week(s) ago. Associated signs and symptoms: The patient has no apparent associated signs or symptoms, Pertinent negatives: fever, nausea, numbness, tingling, vomiting, weakness. The pain does not radiate. Modifying factors: The symptoms are alleviated by nothing. the symptoms are aggravated by movement, pressure. Severity of symptoms: At their worst the symptoms were. 13:45 The patient has not experienced similar symptoms in the past. Patient reports 1 week of rn left posterior lateral neck pain that radiates into the occipital scalp. No injury. No fever or chills. No focal neurological deficit. Has never had a before. Woke up like this. No swelling.. Historical: - Allergies: 13:10 Lisinopril; ap3 13:10 Naproxen; ap3 - PMHx: 13:10 Diabetes - NIDDM; Hyperlipidemia; Hypertension; Prostate Cancer (Hypertension); ap3 - PSHx: 13:10 abdominal hernia (en); cardiac stent X5 (en); ap3 - Immunization history:: Client reports having NOT received the Covid vaccine. Flu vaccine is not up to date. - Infectious Disease History:: Denies. - Family history:: not pertinent. - Hospitalizations: : No recent hospitalization is reported. ROS: 13:45 Constitutional: Negative for fever, chills, and weight loss, Neck: Negative for injury rn and swelling, Cardiovascular: Negative for chest pain, palpitations, and edema, Respiratory: Negative for shortness of breath, cough, wheezing, and pleuritic chest pain, Abdomen/GI: Negative for abdominal pain, nausea, vomiting, diarrhea, and constipation, MS/Extremity: Negative for injury and deformity, Skin: Negative for injury, rash, and discoloration, Neuro: Negative for weakness, numbness, tingling, and seizure Exam: 13:45 Constitutional: This is a well developed, well nourished patient who is awake, alert, rn and in no acute distress. Head/Face: Normocephalic, atraumatic. Neck: No midline cervical tenderness, no crepitus or expansile masses. No tenderness over carotid. Cardiovascular: Regular rate and rhythm. No pulse deficits. Neuro: Awake and alert, GCS 15, oriented to person, place, time, and situation. Cranial nerves II-XII grossly intact. Motor strength 5/5 in all extremities. Sensory grossly intact. Cerebellar exam normal. Normal gait. Vital Signs: 13:09 BP 167 / 89; Pulse 73; Resp 17; Temp 97.8; Pulse Ox 100% ; Weight 133.81 kg; Height 6 ap3 ft. 4 in. ; Pain 10/10; 13:09 Body Mass Index 35.91 (133.81 kg, 193.04 cm) ap3 13:09 Pain Scale: Adult ap3 MDM: 13:08 Medical Screening Exam initiated rn 14:29 Differential diagnosis: arthritis, Cervical Disc Herniation Cervical Discogenic Pain rn Cervical Facet Syndrome Cervical Raiculopathy cervical strain, subluxation, Occipital neuralgia. Differential diagnosis: torticollis. Data reviewed: vital signs, nurses notes. Data reviewed: radiologic studies, CT scan, and as a result, I will discharge patient. Counseling: I had a detailed discussion with the patient and/or guardian regarding the historical points, exam findings, and any diagnostic results supporting the discharge/admit diagnosis, radiology results, the need for outpatient follow up, to return to the emergency department if symptoms worsen or persist or if there are any questions or concerns that arise at home. Special discussion: I discussed with the patient/guardian in detail that at this point there is no indication for admission to the hospital. It is understood, however, that if the symptoms persist or worsen the patient needs to return immediately for re-evaluation. Based on the history and exam findings, there is no indication for further emergent testing or inpatient evaluation. I discussed with the patient/guardian the need to see the neurologist for further evaluation of the symptoms. I discussed with the patient/guardian the need to see the primary care provider for further evaluation of the symptoms. 14:29 ED course: CT head and C-spine negative for acute findings. Will treat as occipital rn neuralgia or neuropathic pain. Return precautions given and understood.. 03/07 13:17 Order name: CT Head C Spine; Complete Time: 14:27 rn Administered Medications: No medications were administered Disposition Summary: 03/07/24 14:30 Discharge Ordered Notes: Location: Home rn Problem: new rn Symptoms: are unchanged rn Condition: Stable rn Diagnosis - Occipital neuralgia rn Followup: rn - With: Kristopher Dumont MD - When: As needed - Reason: Recheck today's complaints, Re-evaluation by your physician Discharge Instructions: - Discharge Summary Sheet rn - Neuropathic Pain rn - Occipital Neuralgia rn Forms: - Medication Reconciliation Form rn - Antibiotic [employer]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 - Prescription Opioid Use rn - Patient Portal Instructions rn - Leadership Thank You Letter rn Prescriptions: - gabapentin 100 mg Oral capsule - take 1 capsule ORAL route 2 times per day; 14 capsule; Refills: 0, Product rn Selection Permitted - Medrol (Flakito) 4 mg Oral Tablets, Dose Pack - take 1 tablet ORAL route as directed - follow package instructions; 1 packet; rn Refills: 0, Product Selection Permitted - Cyclobenzaprine 5 mg Oral Tablet - take 1 tablet ORAL route 3 times per day As needed; 15 tablet; Refills: 0, rn Product Selection Permitted Signatures: Dispatcher [employer] Matt Cano MD MD rn Prokisch, Amanda, RN RN ap3 Corrections: (The following items were deleted from the chart) 13:18 13:18 Head C Spine MPR Wo [id number] ordered. IVAN LOVE
[2024-03-07 17:22] VITALS: BP 167/89; TEMP 97.8; O2SAT 100
== END 2024-03-07 14:45 | disposition home or self-care (01) ==
LOC: ER 12:55
DX: M54.81 Occipital neuralgia (principal)
CPT/HCPCS: 70450; 72125; 99283